=== PATIENT | female | born 1955 | race Caucasian/White ===

== ENCOUNTER 2018-07-03 11:34 | Outpatient (REF) | payer OTHER, MEDICARE, SELFPAY ==
[2018-07-03 20:18] LABS: Abs Immature Grans 0.01 k/cumm (0.0-0.09); Absolute Basophil Count 0.06 k/cumm (0.0-0.2); Absolute Eosinophil Count 0.36 k/cumm (0.0-0.7); Absolute Lymphocyte Count 2.46 k/cumm (1.2-3.4); Absolute Monocyte Count 0.43 k/cumm (0.11-0.7); Absolute Neutrophil Count 2.55 k/cumm (1.2-6.7); Eosinophils % 6.1; HCT 39.4 % (36.0-46.0); HGB 12.9 g/dL (12.0-15.5); Immature Grans % 0.2; Lymphocytes % 41.9; Mean Corp. HGB Concentration 32.7 g/dL (32.0-36.0); Mean Corpuscular Hemoglobin 30.1 pg (27.0-33.0); Mean Corpuscular Volume 91.8 fL (80-95); Mean Platelet Volume 10.7 fL (8.0-11.0); Monocytes % 7.3; Neutrophils % 43.5; Platelet Count 283 x1000/uL (130-400); RBC 4.29 m/cumm (4.00-5.20); RBC Distribution Width 13.4 % (11.7-14.6); White Blood Cell Count 5.87 k/cumm (4.4-10.8)
[2018-07-03 20:19] LABS: BUN 12 mg/dL (7-18); CREATININE 0.81 mg/dL (0.55-1.02); Calcium 8.9 mg/dL (8.5-10.1); Chloride 103 mmol/L (98-107); Glucose 77 mg/dL (70-100); Potassium 3.5 mmol/L (3.5-5.1); Sodium 143 mmol/L (136-145)
== END 2018-07-03 11:54 ==
LOC: NCHCN 11:34
PROVIDERS: PCP Nurse Practitioner Family; Visit Provider Nurse Practitioner Family
DX: C82.90 Follicular lymphoma, unspecified, unspecified site (principal)
CPT/HCPCS: 80048; 85025

== ENCOUNTER 2018-10-26 14:43 | Outpatient (REF) | payer MEDICARE, SELFPAY ==
[2018-10-26 16:01] LABS: Abs Immature Grans 0.01 k/cumm (0.0-0.09); Absolute Basophil Count 0.03 k/cumm (0.0-0.2); Absolute Eosinophil Count 0.23 k/cumm (0.0-0.7); Absolute Lymphocyte Count 2.34 k/cumm (1.2-3.4); Absolute Monocyte Count 0.39 k/cumm (0.11-0.7); Absolute Neutrophil Count 2.14 k/cumm (1.2-6.7); Basophils % 0.6; Eosinophils % 4.5; HCT 39.5 % (36.0-46.0); HGB 13.2 g/dL (12.0-15.5); Immature Grans % 0.2; Lymphocytes % 45.5; Mean Corp. HGB Concentration 33.4 g/dL (32.0-36.0); Mean Corpuscular Hemoglobin 30.3 pg (27.0-33.0); Mean Corpuscular Volume 90.6 fL (80-95); Monocytes % 7.6; Neutrophils % 41.6; Platelet Count 268 x1000/uL (130-400); RBC 4.36 m/cumm (4.00-5.20); RBC Distribution Width 13.8 % (11.7-14.6); White Blood Cell Count 5.14 k/cumm (4.4-10.8)
[2018-10-26 16:16] LABS: ALT 30 U/L (12-78); AST 19 U/L (15-37); Albumin 3.9 g/dL (3.4-5.0); Alkaline Phosphatase 74 U/L (46-116); BUN 14 mg/dL (7-18); Bilirubin, Total 0.4 mg/dL (0.2-1.0); CREATININE 0.77 mg/dL (0.55-1.02); Calcium 9.2 mg/dL (8.5-10.1); Chloride 103 mmol/L (98-107); Cholesterol 273 mg/dL (50-200); Glucose 91 mg/dL (70-100); HDL Cholesterol 72 mg/dL (40-60); LDL CHOLESTEROL 175 mg/dL (<100); Potassium 3.8 mmol/L (3.5-5.1); Sodium 141 mmol/L (136-145); Total Protein 6.6 g/dL (6.4-8.2); Triglyceride 99 mg/dL (30-150)
[2018-10-26 16:38] LABS: LDH 168 U/L (81-234)
== END 2018-10-26 15:03 ==
LOC: NCHCN 14:43
PROVIDERS: PCP Nurse Practitioner Family; Visit Provider Nurse Practitioner Family
DX: R59.0 Localized enlarged lymph nodes (principal); C82.90 Follicular lymphoma, unspecified, unspecified site; Z86.19 Personal history of other infectious and parasitic diseases
CPT/HCPCS: 80053; 80061; 83721; 83615; 85025

== ENCOUNTER 2019-02-16 09:49 | Outpatient (CLI) | payer MEDICARE, SELFPAY ==
[2019-02-16 11:01] LABS: Absolute Basophil Count 0.02 k/cumm (0.0-0.2); Absolute Eosinophil Count 0.16 k/cumm (0.0-0.7); Absolute Lymphocyte Count 1.41 k/cumm (1.2-3.4); Absolute Monocyte Count 0.33 k/cumm (0.11-0.7); Absolute Neutrophil Count 2.86 k/cumm (1.2-6.7); Basophils % 0.4; Eosinophils % 3.3; HGB 13.9 g/dL (12.0-15.5); Lymphocytes % 29.5; Mean Corp. HGB Concentration 33.1 g/dL (32.0-36.0); Mean Corpuscular Volume 90.5 fL (80-95); Mean Platelet Volume 9.6 fL (8.0-11.0); Monocytes % 6.9; Neutrophils % 59.9; Platelet Count 294 x1000/uL (130-400); RBC 4.64 m/cumm (4.00-5.20); RBC Distribution Width 13.7 % (11.7-14.6); White Blood Cell Count 4.78 k/cumm (4.4-10.8)
[2019-02-16 11:17] LABS: ALT 27 U/L (12-78); AST 21 U/L (15-37); Albumin 3.8 g/dL (3.4-5.0); Alkaline Phosphatase 75 U/L (46-116); Anion Gap 7.8 mmol/L (3-11); BUN 9 mg/dL (7-18); Bilirubin, Total 0.4 mg/dL (0.2-1.0); CO2 29.2 mmol/L (21.0-32.0); CREATININE 0.65 mg/dL (0.55-1.02); Calcium 8.8 mg/dL (8.5-10.1); Chloride 104 mmol/L (98-107); Glucose 94 mg/dL (70-100); LDH 193 U/L (81-234); Potassium 4.1 mmol/L (3.5-5.1); Sodium 141 mmol/L (136-145); Total Protein 7.2 g/dL (6.4-8.2)
== END 2019-02-16 10:09 ==
PROVIDERS: PCP Nurse Practitioner Family; Visit Provider Internal Medicine Hematology & Oncology
DX: C82.00 Follicular lymphoma grade I, unspecified site (principal)
CPT/HCPCS: 36415; 80053; 83615; 85025

== ENCOUNTER 2019-08-27 10:42 | Outpatient (CLI) | payer MEDICARE, SELFPAY ==
[2019-08-27 11:02] LABS: Abs Immature Grans 0.01 k/cumm (0.0-0.09); Absolute Basophil Count 0.06 k/cumm (0.0-0.2); Absolute Lymphocyte Count 2.51 k/cumm (1.2-3.4); Absolute Monocyte Count 0.36 k/cumm (0.11-0.7); Absolute Neutrophil Count 1.92 k/cumm (1.2-6.7); Basophils % 1.2; HCT 37.8 % (36.0-46.0); HGB 12.3 g/dL (12.0-15.5); Immature Grans % 0.2 %; Lymphocytes % 49.6; Mean Corp. HGB Concentration 32.5 g/dL (32.0-36.0); Mean Corpuscular Hemoglobin 29.4 pg (27.0-33.0); Mean Corpuscular Volume 90.4 fL (80-95); Mean Platelet Volume 9.3 fL (8.0-11.0); Monocytes % 7.1; Neutrophils % 37.9; Platelet Count 234 x1000/uL (130-400); RBC 4.18 m/cumm (4.00-5.20); RBC Distribution Width 14.4 % (11.7-14.6); White Blood Cell Count 5.06 k/cumm (4.4-10.8)
[2019-08-27 11:19] LABS: ALT 25 U/L (14-59); AST 21 U/L (15-37); Albumin 3.5 g/dL (3.4-5.0); Alkaline Phosphatase 72 U/L (46-116); Anion Gap 5.4 mmol/L (3-11); BUN 13 mg/dL (7-18); Bilirubin, Total 0.3 mg/dL (0.2-1.0); CO2 31.6 mmol/L (21.0-32.0); CREATININE 0.85 mg/dL (0.55-1.02); Calcium 8.3 mg/dL (8.5-10.1); Chloride 105 mmol/L (98-107); Glucose 99 mg/dL (74-106); LDH 190 U/L (81-234); Potassium 3.8 mmol/L (3.5-5.1); Sodium 142 mmol/L (136-145); Total Protein 6.3 g/dL (6.4-8.2)
== END 2019-08-27 11:02 ==
PROVIDERS: PCP Nurse Practitioner Family; Visit Provider Internal Medicine Hematology & Oncology
DX: C82.00 Follicular lymphoma grade I, unspecified site (principal)
CPT/HCPCS: 36415; 80053; 83615; 85025

== ENCOUNTER 2019-11-23 01:15 | Outpatient (CLI) | payer MEDICARE, SELFPAY ==
--- NOTE | 2019-11-23 | DI.CT_ITS ---
EXAM: CT CHEST/ABD/PEL W CLINICAL HISTORY: F/U LYMPHOMA, SURVEILLANCE, PLEASE MEASURE INDICATE SITES IF THERE ARE TECHNIQUE: COMPARISON: CHEST ABD PELVIS WITH CONTRAST from 10/04/2016 FINDINGS: CT examination of the chest, abdomen, and pelvis was performed with bolus infusion of 100 cc of Omnip aque 350. Oral contrast was also administered. Previous scan of October 05, 2015 showed slightly enlarged right axillary lymph nodes, these are smalle r on today's examination. No suspicious node identified in the axillary or supraclavicular regions. No mediastinal or hilar adenopathy. Tracheobronchial tree appears intact. The lungs are predominan tly clear, pleural based nodules are noted in the of upper thorax unchanged from prior study consiste nt with scarring. There is significant central lobular and subpleural emphysematous change. No pleu ral effusion seen. Thoracic aorta and pulmonary arterial circulation are unremarkable. Scanning of the abdomen shows multiple low-attenuation peripheral enhancing hepatic lesions grossly u nchanged from prior study of 2015. Spleen is unremarkable in appearance. Splenule is noted. There is no evidence of retroperitoneal, mesenteric, pelvic, or inguinal adenopathy. No focal bowel pathol ogy. Appendix is normal. No evidence of bowel obstruction or diverticulitis. The pancreas, gallbladder, and bile ducts are unremarkable. The adrenals and kidneys appear normal. No urinary tract calcification or obstruction. Abdominal aorta is of normal diameter with atheromatous calcification present at multiple sites. No significant abdominal wall hernia seen. No bony lesion identified on scanning of chest, abdomen, or pelvis. IMPRESSION: No evidence of recurrent lymphoma on scanning of the chest, abdomen, or pelvis.
[2019-11-23 08:53] LABS: Abs Immature Grans 0.01 k/cumm (0.0-0.09); Absolute Basophil Count 0.04 k/cumm (0.0-0.2); Absolute Eosinophil Count 0.19 k/cumm (0.0-0.7); Absolute Lymphocyte Count 1.21 k/cumm (1.2-3.4); Basophils % 0.8; Eosinophils % 3.8; HCT 39.5 % (36.0-46.0); HGB 13.3 g/dL (12.0-15.5); Immature Grans % 0.2 %; Mean Corp. HGB Concentration 33.7 g/dL (32.0-36.0); Mean Corpuscular Hemoglobin 30.4 pg (27.0-33.0); Mean Corpuscular Volume 90.4 fL (80-95); Mean Platelet Volume 10.3 fL (8.0-11.0); Monocytes % 5.9; Neutrophils % 65.3; Platelet Count 255 x1000/uL (130-400); RBC 4.37 m/cumm (4.00-5.20); RBC Distribution Width 13.1 % (11.7-14.6); White Blood Cell Count 5.05 k/cumm (4.4-10.8)
[2019-11-23 09:08] LABS: ALT 26 U/L (14-59); AST 24 U/L (15-37); Albumin 3.9 g/dL (3.4-5.0); Alkaline Phosphatase 62 U/L (46-116); Anion Gap 7.8 mmol/L (3-11); BUN 10 mg/dL (7-18); Bilirubin, Total 0.6 mg/dL (0.2-1.0); CO2 27.2 mmol/L (21.0-32.0); CREATININE 0.81 mg/dL (0.55-1.02); Calcium 8.7 mg/dL (8.5-10.1); Chloride 105 mmol/L (98-107); Glucose 101 mg/dL (74-106); LDH 195 U/L (81-234); Potassium 3.7 mmol/L (3.5-5.1); Sodium 140 mmol/L (136-145); Total Protein 6.9 g/dL (6.4-8.2)
[2019-11-23] MEDS: Omnipaque 350 MG/ML 100 ML BTL IJ (09:38)
[2019-11-23] MEDS: Normal Saline - Diluent 50 ML VIAL IV (09:39)
[2019-11-27 20:26] LABS: HBV DNA Detect/Quant, PCR Undetected IU/mL (Undetected)
== END 2019-11-23 01:35 ==
PROVIDERS: PCP Nurse Practitioner Family; Visit Provider Internal Medicine Hematology & Oncology
DX: C82.00 Follicular lymphoma grade I, unspecified site (principal); R59.0 Localized enlarged lymph nodes; J43.8 Other emphysema; J98.4 Other disorders of lung
CPT/HCPCS: 74177; 80053; 87517; 71260; 83615; 85025; J3490

== ENCOUNTER 2020-02-25 01:17 | Outpatient (CLI) | payer MEDICARE, SELFPAY ==
--- NOTE | 2020-02-25 | DI.MAMMO_ITS ---
EXAM: MAMMO SCREENING CLINICAL HISTORY: SCREENING, Z12.39 TECHNIQUE: Mammograms were interpreted according to the usual protocol including computer analysis w [employer] CAD system, tomosynthesis and C-view imaging. COMPARISON: FINDINGS: Breasts are of moderate density with fairly symmetrical distribution of fibroglandular tissue. No do minant mass or clumped microcalcification is identified in either breast. The current examination co mpared with previous examinations including February 2017 and there has been no gross interval change i n appearance comparison with prior studies. IMPRESSION: No specific evidence of malignancy at this time. Routine screening examinations are suggested at yea rly intervals in this age group according to the ACS ACR guidelines. Category: BI-RADS Cat 1 - Negative Breast Density - Category B - Scattered areas of fibroglandular density
== END 2020-02-25 01:37 ==
PROVIDERS: PCP Nurse Practitioner Family; Visit Provider Nurse Practitioner Family
DX: Z12.31 Encounter for screening mammogram for malignant neoplasm of breast (principal); R92.2 Inconclusive mammogram
CPT/HCPCS: 77063; 77067

== ENCOUNTER 2020-02-25 01:47 | Outpatient (CLI) | payer MEDICARE, SELFPAY ==
[2020-02-25 11:20] LABS: Abs Immature Grans 0.04 10^3/uL (0.0-0.06); Absolute Eosinophil Count 0.63 10^3/uL (0.0-0.7); Basophils % 0.8; Eosinophils % 5.2; HCT 39.1 % (36.0-46.0); HGB 12.8 g/dL (11.2-15.7); Immature Grans % 0.3; Lymphocytes % 67.8; MCH 28.8 pg (27.0-33.0); MCHC 32.7 % (32.0-36.0); MCV 87.9 fL (80-95); MPV 9.1 fL (8.0-11.0); Monocytes % 3.1; Neutrophils % 22.8; Platelet Count 192 10^3/uL (130-400); RBC 4.45 10^6/uL (3.93-5.22); RDW 14.3 % (11.7-14.6); RDW-SD 45.9 fL; WBC 12.09 10^3/uL (4.4-10.8)
[2020-02-25 11:25] LABS: ALT 38 U/L (14-59); AST 37 U/L (15-37); Albumin 3.5 g/dL (3.4-5.0); Alkaline Phosphatase 110 U/L (46-116); Anion Gap 8.7 mmol/L (3-11); BUN 18 mg/dL (7-18); Bilirubin, Total 0.5 mg/dL (0.2-1.0); CO2 28.3 mmol/L (21.0-32.0); CREATININE 0.83 mg/dL (0.55-1.02); Chloride 102 mmol/L (98-107); Glucose 93 mg/dL (74-106); LDH 214 U/L (81-234); Potassium 3.8 mmol/L (3.5-5.1); Sodium 139 mmol/L (136-145)
[2020-02-25 11:28] LABS: Absolute Monocyte Count 0.37 10^3/uL (0.1-0.8); Absolute Neutrophil Count 2.76 10^3/uL (1.2-6.7)
[2020-02-25 11:40] LABS: Diff Comment Agrees w/ Instrument; RBC Morphology Normal
== END 2020-02-25 02:07 ==
PROVIDERS: PCP Nurse Practitioner Family; Visit Provider Internal Medicine Hematology & Oncology
DX: C82.00 Follicular lymphoma grade I, unspecified site (principal)
CPT/HCPCS: 36415; 80053; 83615; 85025

== ENCOUNTER 2020-05-01 13:53 | Emergency (ER) | payer MEDICARE, SELFPAY ==
[2020-05-01 14:01] VITALS: BP 123/78; PULSE 92; RESP 18; TEMP 37.3; O2SAT 97
--- NOTE | 2020-05-01 14:20 | ED.GENADUL_ITS ---
Discharge Plan Disposition Patient Disposition: HOME Condition: Improving Discharge Details Clinical Impression: Ileus, Urinary tract infection Primary Care Provider: Malachi Germain ED Provider: Ben Kapoor Home Meds and New Rx's Prescriptions: New cephalexin 500 mg capsule 500 mg PO TID 7 Days Qty: 21 RF: 0 sennosides [Senokot] 8.6 mg tablet 8.6 mg PO BID PRN (Reason: constipation) Qty: 14 RF: 0 Continued simvastatin 40 MG tablet 40 mg PO DAILY RF: 0 albuterol sulfate [ProAir HFA] 1 PUFF HFA aerosol inhaler 8.5 gm Inhalation TID PRN PRNRF: 0 prochlorperazine maleate 10 mg Tablet 10 mg PO TID PRNRF: 0 oxycodone-acetaminophen 10-325 mg Tablet 1 tab PO TID PRNRF: 0 potassium gluconate 2 mEq Tablet 2 meq PO DAILY RF: 0 Spiriva with HandiHaler 18 mcg Capsule, W/Inhalation Device 1 cap INHALATION DAILY RF: 0 duloxetine [Cymbalta] 60 mg Capsule,Delayed Release(Dr/Ec) 60 mg PO DAILY RF: 0 Narcan 4 mg/actuation [place],Non-Aerosol 4 mg INTRANASAL Q2-3M PRNRF: 0 Discharge Instructions Instructions: Urinary Tract Infection in Women (ED) Additional Instructions: Take antibiotics as prescribed. Continue small, frequent sips of fluids that you maintain good hydration. Continue your regularly prescribed medications. Begin senna as prescribed, as needed while you have bloating and mild abdominal discomfort. Your x-ray showed nonspecific mildly dilated small bowel loops. If you develop abdominal distention, vomiting, or develop a fever or increasing pain, please return or see your nearest healthcare facility. Return to the ER for any acute concerns. Medical Decision Making 64-year-old female presents from home. For 3 weeks she has had intermittent episodes of difficulty starting her stream of urine and feeling incomplete voiding. Now also with days of lower abdominal discomfort, bloating, feeling she is constipated. Somewhat improved with [id number] herbal laxative. No fever and no vomiting. Of note she did have a screening CT scan of the chest, abdomen, pelvis on November 22 of this year which did not show any evidence of cancerous masses. She has follow-up with Dr. Manning pending. Today her rectal exam was unremarkable and there is no evidence of stool impaction. She is referred for urinalysis and x-ray. X-ray reveals question of ileus nonspecific mildly dilated small bowel loops, no free air or clear obstruction. Urinalysis with mixed cells, numerous bacteria. Discussed with patient further work-up this time including laboratory b analysis and chest x-ray. States she feels good and would wish to be discharged. I do believe her incomplete voiding and presentation is consistent with developing UTI which I will treat. We discussed adding stool softener given the question of ileus. She understands to return if she has increasing abdominal pain, bloating, develops a fever or vomiting. HPI General Mode of arrival: ambulatory . Date/Time Provider Initiated Documentation: 05/01/20 13:55 . Limitations to Documentation: no limitations . Information obtained by: patient . History of Present Illness 64 year old F presents to the emergency department with the chief complaint of Lower abdominal bloating, difficulty starting stream of urine, feels consti, described as moderate, Quality is described as dull, and is localized to the abdomen. Patient reports no radiation. Patient started experiencing this day(s) and it has been intermittent. No relieving factors improve symptom(s), No exacerbating factors reported . Patient notes denies fever/chills. Patient did receive the following treatments prior to arrival, none Related Data Home Medications Medication Instructions Recorded Confirmed simvastatin 40 mg PO DAILY 11/23/12 05/01/20 albuterol sulfate [ProAir HFA] 8.5 gm INHALATION TID PRN PRN 11/24/12 05/01/20 Narcan 4 mg INTRANASAL Q2-3M PRN 05/01/20 05/01/20 Spiriva with HandiHaler 1 cap INHALATION DAILY 05/01/20 05/01/20 cephalexin 500 mg PO TID 7 Days #21 cap 05/01/20 duloxetine [Cymbalta] 60 mg PO DAILY 05/01/20 05/01/20 oxycodone-acetaminophen 1 tab PO TID PRN 05/01/20 05/01/20 potassium gluconate 2 meq PO DAILY 05/01/20 05/01/20 prochlorperazine maleate 10 mg PO TID PRN 05/01/20 05/01/20 sennosides [Senokot] 8.6 mg PO BID PRN #14 tab 10/08/20 Previous Rx's Medication Instructions Recorded cephalexin 500 mg PO TID 7 Days #21 cap 05/01/20 sennosides [Senokot] 8.6 mg PO BID PRN #14 tab 05/01/20 Allergies Allergy/AdvReac Type Severity Reaction Status Date / Time lamotrigine Allergy Unknown Unverified 05/01/20 14:09 milnacipran [From Savella] Allergy Unknown Unverified 05/01/20 14:22 [email or web address] Allergy Unknown Unverified 05/01/20 14:09 General Stated Complaint: Abd Prob CHANDNI: 3 Review of Systems Narrative: 6 systems reviewed and otherwise negative [facility] Medical History Asthma Bone metastasis Depression Fibromyalgia Hemangioma of liver Hyperlipidemia Hypothyroidism Major depression Stage Karley non Hodgkin's lymphoma Vitamin D deficiency Surgical History (Updated 08/08/15 @ 11:24 by Rajwinder Valdez MD) Biopsy, Lymph Node excision ganglion cyst Social History Smoking/Tobacco Use Status: Former Tobacco Use Alcohol Intake: current Alcohol Intake frequency: holidays/special occasions only Drug use: Never Do you feel safe at home: Yes Do you feel safe in your relationship?: Yes Exam Narrative Exam Narrative: GEN: awake, alert, oriented 3. Pleasant, well groomed, interactive. HEAD: Normocephalic, atraumatic ENT: Mucous membranes moist, oropharynx unremarkable, External ear exam unremarkable EYES: PERRL, EOMI CHEST/RESP: Nontender, clear to auscultation bilateral, no wheeze/rhonchi/rales CARDIOVASCULAR: RRR, no murmur, rub marcie. 2+ Rad pulse bilateral ABDOMEN: Soft, nontender, slightly distended, no mass. +Bowel sounds. Rectal exam with normal tone, no mass or stool ball appreciated. Brown stool. EXT: Full ROM, no edema, no rash Neuro: Grossly normal neurologic exam, conversant, interactive. Psych: Speech fluent, thoughts congruent, affect normal Course Vital Signs Vital signs: Vital Signs Temperature 37.3 C 05/01/20 14:01 Pulse 92 H 05/01/20 14:01 Respiratory Rate 18 05/01/20 14:01 Blood Pressure 123/78 05/01/20 14:01 Pulse Oximetry 97 05/01/20 14:01 Temperature 37.3 C 05/01/20 14:01 Temperature Source Temporal Artery Scan 05/01/20 14:01 Pulse 92 H 05/01/20 14:01 Respiratory Rate 18 05/01/20 14:01 Respiratory Effort Non-Labored 05/01/20 14:08 Blood Pressure 123/78 05/01/20 14:01 Blood Pressure Position Sitting 05/01/20 14:01 Pulse Oximetry 97 05/01/20 14:01 Oxygen Delivery Method Room Air 05/01/20 14:01 Oxygen Flow Rate 0 05/01/20 14:01 Pain Level 4 05/01/20 14:01
[2020-05-01 14:49] LABS: Bilirubin Small (Negative); Blood Negative (Negative); Clarity Clear (Clear); Glucose Negative (Negative); Ketones Negative (Negative); Leukocyte Esterase Negative (Negative); Nitrite Negative (Negative); Specific Gravity >= 1.030 (1.005-1.025); Urobilinogen 0.2 EU/dL (Up TO 0.2); pH 5.5 (5-8)
--- NOTE | 2020-05-01 14:52 | DI.RAD_ITS ---
EXAM: XR ABDOMEN FLAT UPRIGHT CLINICAL HISTORY: Constipation TECHNIQUE: COMPARISON: CT CT CHEST/ABD/PEL W from 11/23/2019 FINDINGS: Three views were obtained. There are couple of mildly dilated small bowel loops in the mid abdomen t o left upper quadrant. No gross evidence of obstruction. No free intraperitoneal air. No gross org anomegaly. IMPRESSION: Nonspecific mildly dilated small bowel loops, please correlate clinically. Additional evaluation wit h CT may be considered given the patient's history of prior lymphoma. RADIATION DOSE DELIVERED: Total DLP
[2020-05-01 15:10] LABS: Bacteria Many HPF (Negative); C & S Indicated? No/Sq. Contamination; Casts Negative LPF (Negative); Crystals Few Amorphous HPF (Negative); Epithelial Cells Many HPF (Negative); Mucus Moderate (Negative); RBC 0-2 HPF (0-2); WBC 0-2 HPF (0-5)
== END 2020-05-01 15:37 | disposition home or self-care (01) ==
PROVIDERS: Emergency Provider Emergency Medicine; PCP Nurse Practitioner Family
DX: N39.0 Urinary tract infection, site not specified (principal); R14.0 Abdominal distension (gaseous); K56.7 Ileus, unspecified; Z79.891 Long term (current) use of opiate analgesic
CPT/HCPCS: 99283; 74019; 81003; 81015

== ENCOUNTER 2020-05-17 11:13 | Emergency (ER) | payer MEDICARE, SELFPAY ==
[2020-05-17] VITALS (48 sets, daily range): BP systolic 102–145; BP diastolic 56–91; PULSE 75–103; RESP 12–27; TEMP 36.8; O2SAT 92–97
[2020-05-17] MEDS: Normal Saline 250 ML IV (11:50)
--- NOTE | 2020-05-17 12:22 | W.ED.GENAD ---
Discharge Plan Disposition Patient Disposition: HOME Condition: Stable Discharge Details Clinical Impression: Retroperitoneal lymphadenopathy, Pelvic lymphadenopathy, Urinary incontinence, Bilateral lower extremity edema, DVT prophylaxis Primary Care Provider: Malachi Germain ED Provider: Sindy Guillen Home Meds and New Rx's Prescriptions: New Eliquis 5 mg tablet 10 mg PO BID Qty: 60 RF: 0 Myrbetriq 25 mg tablet extended release 24 hr 25 mg PO DAILY Qty: 30 RF: 0 Continued simvastatin 40 MG tablet 40 mg PO DAILY RF: 0 albuterol sulfate [ProAir HFA] 1 PUFF HFA aerosol inhaler 8.5 gm Inhalation TID PRN PRNRF: 0 prochlorperazine maleate 10 mg Tablet 10 mg PO TID PRNRF: 0 oxycodone-acetaminophen 10-325 mg Tablet 1 tab PO TID PRNRF: 0 Spiriva with HandiHaler 18 mcg Capsule, W/Inhalation Device 1 cap INHALATION DAILY RF: 0 duloxetine [Cymbalta] 60 mg Capsule,Delayed Release(Dr/Ec) 60 mg PO DAILY RF: 0 Narcan 4 mg/actuation [place],Non-Aerosol 4 mg INTRANASAL Q2-3M PRNRF: 0 Discharge Instructions Instructions: Urinary Incontinence (ED), Lymphadenopathy (ED), Ascites (ED) Additional Instructions: Take the 2 tabs of 5 mg Eliquis tonight and every 12 hours tomorrow. Take the Myrbetriq once daily as directed. Return to the hospital on Tuesday for bilateral lower leg ultrasound to rule out a blood clot in your legs. You can stop taking the Eliquis if your ultrasound is negative. Fill the prescription for Eliquis if you are found to have blood clots on your ultrasound. Discuss with your primary care doctor or Dr. Manning regarding how long to continue on the Eliquis if you are found to have blood clots. You do not need to obtain the outpatient CAT scan ordered through Dr. Manning next week as you had a CAT scan of your chest/abdomen/pelvis today. Call the hematology/oncology clinic at [facility] on Tuesday to confirm that your PET scan has been ordered so that you can obtain this test prior to follow-up with Dr. Manning in the next few weeks. Follow-up with urology Dr. Alba as an outpatient for reassessment of your difficulty with urination. Return immediately to the emergency department if you develop any worsening or new concerning symptoms. Referrals: West Alba MD [ [facility] STAFF PHYSICIAN] - Discharge Data Discharge Date/Time-TO BE ENTERED AT DEPARTURE: 05/17/20 18:06 Discharge Physician: Sindy Guillen Medical Decision Making 64yo F with a history of stage IV non Hodgkin's lymphoma diagnosed in 2012 presents for urinary retention and b/l lower extremity edema for 2 months. Patient appears chronically ill but in no acute distress and nontoxic. Vitals within normal limits. Bladder scan per nurse greater than 500. Bedside Ferro catheter placed by nurse and minimal urine expressed. Likely that bladder scan picked up possible ascites rather than retained urine. Labs and imaging reviewed. Normal white blood cell count. Hemoglobin 9.7, which he points lower than recent baseline. Normal coagulation studies, electrolytes and renal function. Urinalysis notes blood but no infection. CT notes extensive retroperitoneal, pelvic lymphadenopathy presumably neoplastic. Retroperitoneal adenopathy seems to be causing apparent venous compression of the IVC. There is also concern for possible DVT within the common femoral veins and Doppler ultrasounds recommended. 1600 --discussed with [facility] hematology/oncology -- Concern for recurrence of her lymphoma. This usually would require PET scan and restaging or biopsy. Recommended checking uric acid, LDH and phosphorus to rule out acute tumor lysis syndrome all of which were unremarkable. Agrees with consideration for prophylactic DVT treatment. Patient would like to go home. Patient appears comfortable and hemodynamically stable. Her ascites does not seem to be causing any acute distress. Case discussed with Dr. Alba neurology who feels that patient's urinary retention is likely due to an ongoing urinary incontinence as her bladder does not fill with the pressure from the ascites and lymphadenopathy. With further discussion with patient, she does admit to intermittent incontinence throughout the day. Dr. Alba recommends to start a bladder relaxer Myrbetriq at 25 mg once daily for the next several weeks and to follow-up with him as outpatient. Patient was given Eliquis and Myrbetriq here. An order for an outpatient b/l doppler leg ultrasound placed for her to return Tuesday. Advised to call Dr. Manning's office on Tuesday for PET scan and follow-up. Usual and customary return precautions given prior to discharge. Medical Records Medical records reviewed: Yes I reviewed the patient's medical records. Imaging Data Radiologic Study: Radiologist's impression: The patient has a history of non-Hodgkin's lymphoma. The extensive adenopathy, splenomegaly is highly suspicious for disease recurrence. There is prominent bilateral axillary lymphadenopathy and these nodes likely are the most accessible to percutaneous biopsy. The largest right axillary lymph node measures approximately 29 x 15 mm as measured on coronal reformatted image 29, series 9. PROCEDURE INFORMATION: Exam: CT Angiography Chest With Contrast Exam date and time: 05/17/2020 11:52 AM Age: 64 years old Clinical indication: Other: Unable to urinate, leg edema, R/O acute mass TECHNIQUE: Imaging protocol: Computed tomographic angiography of the chest with intravenous contrast. 3D rendering (Not supervised by radiologist): MIP and/or 3D reconstructed images were created by the technologist. Radiation optimization: All CT scans at this facility use at least one of these dose optimization techniques: automated exposure control; mA and/or kV adjustment per patient size (includes targeted exams where dose is matched to clinical indication); or iterative reconstruction. Contrast material: OMNIPAQUE 350; Contrast route: INTRAVENOUS (IV); COMPARISON: CT CHEST/ABD/PEL W 11/23/2019 9:25 AM FINDINGS: Pulmonary arteries: The no definite intraluminal filling defect or intravascular thrombus is identified to suggest acute pulmonary embolus. Aorta: The aorta is nonaneurysmal. No acute aortic abnormality is identified. Lungs: Emphysematous changes are seen in both lungs. Bullae are seen at the lung apices. Linear opacities at the lung apices likely represent pleuroparenchymal scarring. There is no evidence of an endobronchial lesion. There is mild atelectasis in association with the right pleural effusion. No significant lobar consolidation is identified. There is a nonspecific nodule noted within the right lower lobe measuring approximately 6 mm in diameter on series 7, image 326. There is a possible additional tiny nodule posteriorly in the left lower lobe on image 356. Pleural space: Small to moderate right pleural effusion is noted. Trace left pleural effusion is noted. Heart: The heart is not enlarged. There is no significant pericardial effusion Lymph nodes: There is prominent bilateral axillary lymphadenopathy. No significantly enlarged mediastinal or hilar nodes are identified. Bones/joints: Degenerative changes are seen in the thoracic spine. No definite acute or destructive bony abnormality is identified. Soft tissues: There is some mild apparent stranding in the axillary soft tissues adjacent to the axillary adenopathy. There is some mild diffuse subcutaneous edema.. IMPRESSION: 1. No evidence of acute pulmonary embolus. 2. Right greater than left pleural effusion 3. Emphysema 4. Bilateral axillary lymphadenopathy, suspicious for neoplastic adenopathy in light of the findings described below 5. Small nonspecific lower lobe nodules as described. 6. For patients at low risk (minimal or absent history of smoking and of other known risk factors), recommend CT Chest at 6-12 months, then consider CT Chest at 18-24 months. For patients at high risk (history of smoking or of other known risk factors), recommend CT Chest at 6-12 months, then CT Chest at 18-24 months. (Reference: Arcelia) REFERENCES: Arcelia Arias, et al. Guidelines for Management of Incidental Pulmonary Nodules Detected on CT Images: From the Fleischner Society 2017. Radiology. 2017;284(1):228-243. CT Abdomen And Pelvis With Contrast Exam date and time: 05/17/2020 11:52 AM Age: 64 years old Clinical indication: Other: Unable to urinate, leg edema, R/O acute mass TECHNIQUE: Imaging protocol: Computed tomography of the abdomen and pelvis with intravenous contrast. Radiation optimization: All CT scans at this facility use at least one of these dose optimization techniques: automated exposure control; mA and/or kV adjustment per patient size (includes targeted exams where dose is matched to clinical indication); or iterative reconstruction. Contrast material: OMNIPAQUE 350; Contrast volume: 100 ml; Contrast route: INTRAVENOUS (IV); COMPARISON: CT CHEST/ABD/PEL W 11/23/2019 9:25 AM FINDINGS: Liver: There is a low-density lesion noted at the dome of the liver with some peripheral enhancement. This is nonspecific and incompletely characterized on this examination but could represent an hepatic any angioma. There is a similar appearing smaller lesion lateral segment left lobe of the liver measuring approximately 13 mm on series 14, image 185. There is a 9 mm low-density lesion posteriorly, medially right lobe of the liver near the dome series 14, image 108. Additional tiny lesion series 14, image 161. The liver is enlarged. Superior to inferior extent of the right lobe of the liver is over 17 cm. Gallbladder and bile ducts: Gallbladder is distended. No gallstones. Extrahepatic common bile duct is prominent in size measuring 8 mm in diameter but there is no evidence of intrahepatic ductal dilatation. There is no CT evidence of choledocholithiasis. Pancreas: There is no evidence of a discrete pancreatic mass nor significant pancreatic ductal dilatation. Spleen: The spleen is enlarged. As measured on coronal re-formatted images it measures approximately 14.3 x 6.3 cm on image 49. No focal intra splenic abnormality is identified. Adrenals: The adrenals are unremarkable There is a in apparent left adrenal mass which measures approximately 3.3 by 2.1 cm in diameter on series 14, image 183. There is no evidence of a discrete right adrenal mass or nodule Kidneys and ureters: There are no radiopaque urinary tract calculi. There is no evidence of hydronephrosis. There is no evidence of a renal cortical mass. Stomach and bowel: There is no evidence of a bowel obstruction, mass or pneumatosis . There is some displacement of bowel loops the by the ascites fluid.. Appendix: No evidence of appendicitis. Intraperitoneal space: Ascites is noted in the abdomen and pelvis but there is no evidence of a discrete or drainable collection or abscess. No free air Vasculature: The aorta is nonaneurysmal. Atherosclerotic plaque is noted within the abdomen, pelvis. There is no acute aortic abnormality . The exam was not tailored to evaluate the venous structures of the lower extremities. However there are findings suspicious for possible deep venous thrombosis within the common femoral veins. For further evaluation for possible DVT correlation with vascular ultrasound recommended. Lymph nodes: There is conglomerate retroperitoneal adenopathy. Adenopathy is both periaortic and aortocaval in location. Pelvic/iliac adenopathy is identified. External iliac nodes measure up to 26 x 16 mm on series 14, image 603. Multiple bilateral inguinal nodes are also noted The retroperitoneal adenopathy likely contributes to venous compression of the IVC. Urinary bladder: Ferro catheter is seen in the urinary bladder. The bladder is decompressed. Reproductive: No significant uterine or adnexal abnormalities identified Bones/joints: There is compression deformity of the superior endplate of L4 age indeterminate. There is no other significant decrease of vertebral body height. No other definite acute or destructive bony abnormality is identified. The Soft tissues: There is diffuse subcutaneous edema left lower extremity appears larger than the right. Again to evaluate for DVT vascular ultrasound recommended IMPRESSION: 1. Abnormal exam. Extensive retroperitoneal, pelvic lymphadenopathy presumably neoplastic. Retroperitoneal adenopathy leads to apparent venous compression of the IVC . To the the better evaluate for deep venous thrombosis of the lower extremities venous ultrasound examination recommended 2. left adrenal mass/nodule the 3. Hepatosplenomegaly 4. Ascites 5 Multiple peripherally enhancing hepatic lesions incompletely characterized on this examination possibly hepatic hemangiomata. Lab Data Lab results reviewed: Yes I reviewed the patient's lab results. Labs: Abnormal Lab Results 05/17/20 05/17/20 05/17/20 12:25 12:25 12:25 WBC 6.38 RBC 3.31 L Hgb 9.7 L Hct 31.5 L MCV 95.2 H MCH 29.3 MCHC 30.8 L RDW 15.9 H Plt Count 254 MPV 8.7 Immature Gran % 0.2 Neutrophils % 41.1 Lymphocytes % 40.1 Monocytes % 4.4 Eosinophils % 12.9 Basophils % 1.3 Nucleated RBC % 0 Absolute Neutrophils 2.63 Absolute Lymphocytes 2.56 Absolute Monocytes 0.28 Absolute Eosinophils 0.82 H Absolute Basophils 0.08 PT 10.3 INR 1.0 APTT 23.5 Sodium 137 Potassium 3.8 Chloride 101 Carbon Dioxide 29.0 Anion Gap 7.0 BUN 9 Creatinine 0.69 Estimated GFR/1.73 m2 >= 60.00 Glucose 82 Uric Acid Calcium 8.7 Phosphorus Total Bilirubin 0.7 AST 21 ALT 12 L Alkaline Phosphatase 99 Lactate Dehydrogenase Total Protein 6.1 L Albumin 3.2 L Urine Color Urine Clarity Urine pH Ur Specific [place] Urine Protein Urine Ketones Urine Blood Urine Nitrite Urine Bilirubin Urine Urobilinogen Ur Leukocyte Esterase Urine RBC Urine WBC Ur Epithelial Cells Urine Crystals Urine Bacteria Urine Casts Urine Mucus Urine Other Ur Culture Indicated? Urine Glucose 05/17/20 05/17/20 12:25 12:48 WBC RBC Hgb Hct MCV MCH MCHC RDW Plt Count MPV Immature Gran % Neutrophils % Lymphocytes % Monocytes % Eosinophils % Basophils % Nucleated RBC % Absolute Neutrophils Absolute Lymphocytes Absolute Monocytes Absolute Eosinophils Absolute Basophils PT INR APTT Sodium Potassium Chloride Carbon Dioxide Anion Gap BUN Creatinine Estimated GFR/1.73 m2 Glucose Uric Acid 6.1 H Calcium Phosphorus 4.7 Total Bilirubin AST ALT Alkaline Phosphatase Lactate Dehydrogenase 175 Total Protein Albumin Urine Color [place] Urine Clarity Sl cloudy Urine pH 5.5 Ur Specific [place] >= 1.030 H Urine Protein 100 H Urine Ketones Trace H Urine Blood Trace-intact H Urine Nitrite Negative Urine Bilirubin Moderate H Urine Urobilinogen 1.0 H Ur Leukocyte Esterase Negative Urine RBC 5-10 H Urine WBC 0-2 Ur Epithelial Cells Many Urine Crystals Negative Urine Bacteria Many Urine Casts Negative Urine Mucus Heavy Urine Other Moderate renal Ur Culture Indicated? No/sq. contamination Urine Glucose Negative HPI General Mode of arrival: ambulatory. Date/Time Provider Initiated Documentation: 05/17/20 11:14. Limitations to Documentation: no limitations. Information obtained by: patient. HPI Narrative: Patient is a 64-year-old female with a history of stage IV lymphoma, COPD, asthma, migraines and hypothyroidism who presents for difficulty urinating and swelling in both legs for the past 2 months. Patient states she last saw her oncologist Dr. Manning 2 months ago and states since then her symptoms started and have been progressing. Patient was seen here last month for difficulty with urination and treated for possible UTI which she finished without any change in her symptoms. She states when she tries to urinate she has only small drips that come out. She states she had been feeling suprapubic pressure but denies any significant pain now. She denies fever, headache, chest pain, shortness of breath, nausea, vomiting, diarrhea, dysuria, hematuria. Related Data Home Medications Medication Instructions Recorded Confirmed simvastatin 40 mg PO DAILY 11/23/12 05/17/20 albuterol sulfate [ProAir HFA] 8.5 gm INHALATION TID PRN PRN 11/24/12 05/17/20 Narcan 4 mg INTRANASAL Q2-3M PRN 05/01/20 05/17/20 Spiriva with HandiHaler 1 cap INHALATION DAILY 05/01/20 05/17/20 duloxetine [Cymbalta] 60 mg PO DAILY 05/01/20 05/17/20 oxycodone-acetaminophen 1 tab PO TID PRN 05/01/20 05/17/20 prochlorperazine maleate 10 mg PO TID PRN 05/01/20 05/17/20 apixaban [Eliquis] 10 mg PO BID #60 tab 05/17/20 mirabegron [Myrbetriq] 25 mg PO DAILY #30 tab 05/17/20 Previous Rx's Medication Instructions Recorded apixaban [Eliquis] 10 mg PO BID #60 tab 05/17/20 mirabegron [Myrbetriq] 25 mg PO DAILY #30 tab 05/17/20 Allergies Allergy/AdvReac Type Severity Reaction Status Date / Time lamotrigine Allergy Unknown Unverified 05/17/20 11:30 milnacipran [From [place]] Allergy Unknown Unverified 05/17/20 11:30 varenicline Allergy Unknown Unverified 05/17/20 11:30 General Stated Complaint: GenMedical CHANDNI: 3 Review of Systems All systems reviewed & are unremarkable except as noted in HPI and below Constitutional Constitutional: Reports as per HPI, Denies chills and Denies fever(s) Eyes Eyes: Denies blurry vision ENT Ears, Nose, Mouth, and Throat: Denies dizziness, Denies sore throat and Denies throat swelling Cardiovascular Cardiovascular: Denies chest pain and Denies dyspnea Respiratory Respiratory: Denies cough and Denies dyspnea Gastrointestinal Gastrointestinal: Denies abdominal pain, Denies diarrhea and Denies vomiting Genitourinary Genitourinary: Denies hematuria, Reports difficulty voiding and Denies dysuria Musculoskeletal Musculoskeletal: Denies back pain and Denies numbness Integumentary/Breasts Skin/Breast: Denies lesions and Denies rash Neurologic Neurologic: Denies dizziness, Denies localized weakness and Denies numbness Allergic/Immunologic Allergic/Immunologic: Denies throat swelling [facility] Medical History Asthma Bone metastasis Depression Fibromyalgia Hemangioma of liver Hyperlipidemia Hypothyroidism Major depression Stage Karley non Hodgkin's lymphoma Vitamin D deficiency Surgical History (Updated 08/08/15 @ 11:24 by Rajwinder Valdez MD) Biopsy, Lymph Node excision ganglion cyst Social History Smoking/Tobacco Use Status: Current every day Tobacco Type: cigarettes Alcohol Intake: current Alcohol Intake frequency: holidays/special occasions only Drug use: Never Do you feel safe at home: Yes Do you feel safe in your relationship?: Yes Exam Const General: cooperative, no acute distress and ill appearing chronically Orientation: alert and awake HENMT Head: normal to inspection Ears: hearing grossly normal bilaterally and external ears normal General nose exam: external nose normal Face and sinus: normal facial exam Mouth: oral mucosae normal Eyes General: appearance normal, both eyes and all related structures Eyelids: eyelids normal Pupils: PERRL EOM: EOM intact bilaterally Neck Neck: normal visual inspection Lymphatic: no lymphadenopathy noted Chest Chest: normal inspection of the chest Resp Effort & Inspection: normal respiratory effort and able to speak in complete sentences Auscultation: clear to auscultation bilaterally Cardio Rate: regular rate Rhythm: regular rhythm GI Inspection: normal to inspection Palpation: soft, not firm, no guarding, no hepatosplenomegaly, no masses and nontender Auscultation: normal bowel sounds Skin General skin exam: no rashes or lesions noted Neuro General: patient alert and patient awake Cognition: normal cognition Speech: speech normal Gait: normal gait Motor: muscle tone normal throughout Sensory Exam: no sensory deficits noted Extrem General: normal to inspection, full ROM, capillary refill normal and edema Laterality: bilateral (2+ pitting lower extremities) Psych Appearance: grossly normal Mental Status: mental status grossly normal Speech and Movement: speech and movement normal Affect: normal affect Thought Process: normal Course Vital Signs Vital signs: Vital Signs Temperature 98.2 F 05/17/20 11:24 Pulse 94 H 05/17/20 11:24 Respiratory Rate 18 05/17/20 11:24 Blood Pressure 130/80 05/17/20 11:24 Pulse Oximetry 94 05/17/20 11:24 Temperature 98.2 F 05/17/20 11:24 Temperature Source Oral 05/17/20 11:24 Pulse 94 H 05/17/20 11:24 Respiratory Rate 18 05/17/20 11:24 Respiratory Effort Non-Labored 05/17/20 11:33 Respiratory Depth Normal 05/17/20 11:33 Respiratory Pattern Normal 05/17/20 11:33 Blood Pressure 130/80 05/17/20 11:24 Blood Pressure Position Sitting 05/17/20 11:24 Pulse Oximetry 94 05/17/20 11:24 Oxygen Delivery Method Room Air 05/17/20 11:24 Oxygen Flow Rate 0 05/17/20 11:24
--- NOTE | 2020-05-17 12:30 | DI.CT_ITS ---
EXAM: CT CHEST PE ABD PELVIS W CLINICAL HISTORY: unable to urinate, leg edema, r/o acute mass TECHNIQUE: CT examination of the chest, abdomen, and pelvis was performed utilizing intravenous inf usion of 100 cc of Omnipaque 350 with biphasic hepatic imaging. Oral contrast was also administered. COMPARISON: CT CT CHEST/ABD/PEL W from 11/23/2019 FINDINGS: There are severe changes of pulmonary emphysema. There is a 6 millimeter right lung nodule which is pleural-based posteriorly, probably present on prior examination of November 2019. There is a new large r ight pleural effusion. There is no gross pulmonary embolic disease. There is normal diameter of the thoracic aorta. There is new bilateral axillary adenopathy, the largest conglomerate node in the right axilla measuri ng about 3 cm in diameter, not present on prior scan of November 2019. There is very poorly defined increased radiodensity pretracheal and AP window not present on the prio r study, highly suspicious for adenopathy as well. No new pulmonary consolidation seen. There are stable low-attenuation lesions noted in the liver, unchanged from prior CT of 2016 and cons istent with benign process. No new intrahepatic findings. Spleen is markedly enlarged, new since November of 2019. There is very prominent paracaval and para-aorti c adenopathy with adenopathy also seen in inguinal, internal and external iliac chains and common aung ac chains. There is marked abdominal ascites which was not previously present. No gross bowel obstr uction. Ferro catheter noted in place in the urinary bladder. No urinary tract obstruction. Pancre as is grossly unremarkable. Gallbladder distended, nonspecific. No biliary dilatation. No focal bony lesion identified on scanning of the chest, abdomen or pelvis. IMPRESSION: Findings highly suggestive of recurrent lymphoma, new since prior scan of November 2019, with new axillary , pretracheal, AP window, retroperitoneal and pelvic adenopathy as well as a large right pleural effu elias and extensive abdominal ascites. Marked splenomegaly noted which is also new and presumably represents neoplastic change. Stable hepatic lesions noted. RADIATION DOSE DELIVERED: 1,040.69mGy.cm Total DLP 1,040.69mGy.cm Total DLP
[2020-05-17 12:33] LABS: Abs Immature Grans 0.01 10^3/uL (0.0-0.06); Absolute Basophil Count 0.08 10^3/uL (0.0-0.2); Absolute Eosinophil Count 0.82 10^3/uL (0.0-0.7); Absolute Lymphocyte Count 2.56 10^3/uL (1.2-3.4); Absolute Monocyte Count 0.28 10^3/uL (0.1-0.8); Absolute Neutrophil Count 2.63 10^3/uL (1.2-6.7); Basophils % 1.3; Eosinophils % 12.9; HCT 31.5 % (36.0-46.0); HGB 9.7 g/dL (11.2-15.7); Immature Grans % 0.2; Lymphocytes % 40.1; MCH 29.3 pg (27.0-33.0); MCHC 30.8 % (32.0-36.0); MCV 95.2 fL (80-95); MPV 8.7 fL (8.0-11.0); Monocytes % 4.4; Neutrophils % 41.1; Nucleated RBC 0 %; Platelet Count 254 10^3/uL (130-400); RBC 3.31 10^6/uL (3.93-5.22); RDW 15.9 % (11.7-14.6); RDW-SD 55.7 fL; WBC 6.38 10^3/uL (4.4-10.8)
[2020-05-17 12:47] LABS: ALT 12 U/L (14-59); AST 21 U/L (15-37); Albumin 3.2 g/dL (3.4-5.0); Alkaline Phosphatase 99 U/L (46-116); BUN 9 mg/dL (7-18); Bilirubin, Total 0.7 mg/dL (0.2-1.0); CREATININE 0.69 mg/dL (0.55-1.02); Calcium 8.7 mg/dL (8.5-10.1); Chloride 101 mmol/L (98-107); Glucose 82 mg/dL (74-106); PTT Activated 23.5 sec (21.0-31.4); Potassium 3.8 mmol/L (3.5-5.1); Prothrombin Time 10.3 sec (9.3-11.0); Sodium 137 mmol/L (136-145); Total Protein 6.1 g/dL (6.4-8.2)
[2020-05-17 12:56] LABS: Bilirubin Moderate (Negative); Blood Trace-intact (Negative); Clarity Sl Cloudy (Clear); Glucose Negative (Negative); Ketones Trace mg/dL (Negative); Leukocyte Esterase Negative (Negative); Nitrite Negative (Negative); Specific Gravity >= 1.030 (1.005-1.025); pH 5.5 (5-8)
[2020-05-17 13:11] LABS: Bacteria Many HPF (Negative); C & S Indicated? No/Sq. Contamination; Casts Negative LPF (Negative); Crystals Negative HPF (Negative); Epithelial Cells Many HPF (Negative); Mucus Heavy (Negative); Other Cells Moderate Renal (Negative); WBC 0-2 HPF (0-5)
[2020-05-17] MEDS: Omnipaque 350 MG/ML 100 ML BTL IJ (13:12)
[2020-05-17] MEDS: Normal Saline Flush 10 ML SYR IVP (13:23)
[2020-05-17] MEDS: Normal Saline - Diluent 50 ML VIAL IV (13:24)
--- NOTE | 2020-05-17 14:11 | DI.VRAD_ITS ---
Addendum created by Kacey Cantor MD on 05/17/2020 5:35:28 PM EDT: Case was discussed with Dr. Guillen. The patient has a history of non-Hodgkin's lymphoma. The extensive adenopathy, splenomegaly is highly suspicious for disease recurrence. There is prominent bilateral axillary lymphadenopathy and these nodes likely are the most accessible to percutaneous biopsy. The largest right axillary lymph node measures approximately 29 x 15 mm as measured on coronal reformatted image 29, series 9. Initial report created on 05/17/2020 2:11:21 PM EDT: PROCEDURE INFORMATION: Exam: CT Angiography Chest With Contrast Exam date and time: 05/17/2020 11:52 AM Age: 64 years old Clinical indication: Other: Unable to urinate, leg edema, R/O acute mass TECHNIQUE: Imaging protocol: Computed tomographic angiography of the chest with intravenous contrast. 3D rendering (Not supervised by radiologist): MIP and/or 3D reconstructed images were created by the technologist. Radiation optimization: All CT scans at this facility use at least one of these dose optimization techniques: automated exposure control; mA and/or kV adjustment per patient size (includes targeted exams where dose is matched to clinical indication); or iterative reconstruction. Contrast material: OMNIPAQUE 350; Contrast route: INTRAVENOUS (IV); COMPARISON: CT CHEST/ABD/PEL W 11/23/2019 9:25 AM FINDINGS: Pulmonary arteries: The no definite intraluminal filling defect or intravascular thrombus is identified to suggest acute pulmonary embolus. Aorta: The aorta is nonaneurysmal. No acute aortic abnormality is identified. Lungs: Emphysematous changes are seen in both lungs. Bullae are seen at the lung apices. Linear opacities at the lung apices likely represent pleuroparenchymal scarring. There is no evidence of an endobronchial lesion. There is mild atelectasis in association with the right pleural effusion. No significant lobar consolidation is identified. There is a nonspecific nodule noted within the right lower lobe measuring approximately 6 mm in diameter on series 7, image 326. There is a possible additional tiny nodule posteriorly in the left lower lobe on image 356. Pleural space: Small to moderate right pleural effusion is noted. Trace left pleural effusion is noted. Heart: The heart is not enlarged. There is no significant pericardial effusion Lymph nodes: There is prominent bilateral axillary lymphadenopathy. No significantly enlarged mediastinal or hilar nodes are identified. Bones/joints: Degenerative changes are seen in the thoracic spine. No definite acute or destructive bony abnormality is identified. Soft tissues: There is some mild apparent stranding in the axillary soft tissues adjacent to the axillary adenopathy. There is some mild diffuse subcutaneous edema.. IMPRESSION: 1. No evidence of acute pulmonary embolus. 2. Right greater than left pleural effusion 3. Emphysema 4. Bilateral axillary lymphadenopathy, suspicious for neoplastic adenopathy in light of the findings described below 5. Small nonspecific lower lobe nodules as described. 6. For patients at low risk (minimal or absent history of smoking and of other known risk factors), recommend CT Chest at 6-12 months, then consider CT Chest at 18-24 months. For patients at high risk (history of smoking or of other known risk factors), recommend CT Chest at 6-12 months, then CT Chest at 18-24 months. (Reference: Arcelia) REFERENCES: Arcelia Arias et al. Guidelines for Management of Incidental Pulmonary Nodules Detected on CT Images: From the Fleischner Society 2017. Radiology. 2017;284(1):228-243. PROCEDURE INFORMATION: Exam: CT Abdomen And Pelvis With Contrast Exam date and time: 05/17/2020 11:52 AM Age: 64 years old Clinical indication: Other: Unable to urinate, leg edema, R/O acute mass TECHNIQUE: Imaging protocol: Computed tomography of the abdomen and pelvis with intravenous contrast. Radiation optimization: All CT scans at this facility use at least one of these dose optimization techniques: automated exposure control; mA and/or kV adjustment per patient size (includes targeted exams where dose is matched to clinical indication); or iterative reconstruction. Contrast material: OMNIPAQUE 350; Contrast volume: 100 ml; Contrast route: INTRAVENOUS (IV); COMPARISON: CT CHEST/ABD/PEL W 11/23/2019 9:25 AM FINDINGS: Liver: There is a low-density lesion noted at the dome of the liver with some peripheral enhancement. This is nonspecific and incompletely characterized on this examination but could represent an hepatic any angioma. There is a similar appearing smaller lesion lateral segment left lobe of the liver measuring approximately 13 mm on series 14, image 185. There is a 9 mm low-density lesion posteriorly, medially right lobe of the liver near the dome series 14, image 108. Additional tiny lesion series 14, image 161. The liver is enlarged. Superior to inferior extent of the right lobe of the liver is over 17 cm. Gallbladder and bile ducts: Gallbladder is distended. No gallstones. Extrahepatic common bile duct is prominent in size measuring 8 mm in diameter but there is no evidence of intrahepatic ductal dilatation. There is no CT evidence of choledocholithiasis. Pancreas: There is no evidence of a discrete pancreatic mass nor significant pancreatic ductal dilatation. Spleen: The spleen is enlarged. As measured on coronal re-formatted images it measures approximately 14.3 x 6.3 cm on image 49. No focal intra splenic abnormality is identified. Adrenals: The adrenals are unremarkable There is a in apparent left adrenal mass which measures approximately 3.3 by 2.1 cm in diameter on series 14, image 183. There is no evidence of a discrete right adrenal mass or nodule Kidneys and ureters: There are no radiopaque urinary tract calculi. There is no evidence of hydronephrosis. There is no evidence of a renal cortical mass. Stomach and bowel: There is no evidence of a bowel obstruction, mass or pneumatosis . There is some displacement of bowel loops the by the ascites fluid.. Appendix: No evidence of appendicitis. Intraperitoneal space: Ascites is noted in the abdomen and pelvis but there is no evidence of a discrete or drainable collection or abscess. No free air Vasculature: The aorta is nonaneurysmal. Atherosclerotic plaque is noted within the abdomen, pelvis. There is no acute aortic abnormality . The exam was not tailored to evaluate the venous structures of the lower extremities. However there are findings suspicious for possible deep venous thrombosis within the common femoral veins. For further evaluation for possible DVT correlation with vascular ultrasound recommended. Lymph nodes: There is conglomerate retroperitoneal adenopathy. Adenopathy is both periaortic and aortocaval in location. Pelvic/iliac adenopathy is identified. External iliac nodes measure up to 26 x 16 mm on series 14, image 603. Multiple bilateral inguinal nodes are also noted The retroperitoneal adenopathy likely contributes to venous compression of the IVC. Urinary bladder: Ferro catheter is seen in the urinary bladder. The bladder is decompressed. Reproductive: No significant uterine or adnexal abnormalities identified Bones/joints: There is compression deformity of the superior endplate of L4 age indeterminate. There is no other significant decrease of vertebral body height. No other definite acute or destructive bony abnormality is identified. The Soft tissues: There is diffuse subcutaneous edema left lower extremity appears larger than the right. Again to evaluate for DVT vascular ultrasound recommended IMPRESSION: 1. Abnormal exam. Extensive retroperitoneal, pelvic lymphadenopathy presumably neoplastic. Retroperitoneal adenopathy leads to apparent venous compression of the IVC . To the the better evaluate for deep venous thrombosis of the lower extremities venous ultrasound examination recommended 2. left adrenal mass/nodule the 3. Hepatosplenomegaly 4. Ascites 5 Multiple peripherally enhancing hepatic lesions incompletely characterized on this examination possibly hepatic hemangiomata. Dictated and Authenticated by: Kacey Cantor MD. Ordering:MARCE Callahan MD
[2020-05-17 16:34] LABS: LDH 175 U/L (81-234); PHOSPHORUS 4.7 mg/dL (2.6-4.7); Uric Acid 6.1 mg/dL (2.6-6.0)
[2020-05-17] MEDS: Apixaban 5 MG TAB 10 MG PO ×2 (16:57→17:54)
[2020-05-17] MEDS: Mirabegron 25 MG TABCR PO (16:57)
[2020-05-17] MEDS: Apixaban 5 MG TAB 20 MG PO (17:55)
--- NOTE | 2020-05-17 18:09 | NUR.NOTE ---
Referral faxed to [facility].Nursing Note:
== END 2020-05-17 18:06 | disposition home or self-care (01) ==
PROVIDERS: Emergency Provider Physician Assistant; PCP Nurse Practitioner Family
DX: R59.1 Generalized enlarged lymph nodes (principal); R60.0 Localized edema; R32 Unspecified urinary incontinence; C85.90 Non-Hodgkin lymphoma, unspecified, unspecified site
CPT/HCPCS: 36415; 51702; 71275; 74177; 80053; 96360; 99285; 81003; 81015; 83615; 84100; 84550; 85025; 85610; 85730; J3490

== ENCOUNTER 2020-05-19 09:49 | Outpatient (CLI) | payer MEDICARE, SELFPAY ==
--- NOTE | 2020-05-19 | DI.US_ITS ---
EXAM: US EXTREMITY VENOUS BI CLINICAL HISTORY: BILAT LOWER EXTREMITY EDEMA. TECHNIQUE: Ultrasound performed using standard protocol. COMPARISON: US RIGHT BREAST ULTRASOUND from 08/31/2013 FINDINGS: Duplex venous ultrasound was performed according to the usual protocol. The deep veins are freely com pressible throughout and there is normal flow augmentation with manual calf compression. 2D and Doppl er evaluation are unremarkable. IMPRESSION: No evidence of deep venous thrombosis of the right or left lower extremity. 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 DATA REPOSITORY:
== END 2020-05-19 10:09 ==
PROVIDERS: PCP Nurse Practitioner Family; Visit Provider Physician Assistant
DX: R60.0 Localized edema (principal); M72.2 Plantar fascial fibromatosis
CPT/HCPCS: 93970

== ENCOUNTER 2020-05-19 10:29 | Emergency (ER) | payer MEDICARE, SELFPAY ==
[2020-05-19 10:36] VITALS: BP 124/86; PULSE 89; RESP 16; TEMP 36.6; O2SAT 97
--- NOTE | 2020-05-19 11:34 | ED.GENADUL_ITS ---
Discharge Plan Discharge Details Chief Complaint: Recheck Primary Care Provider: Malachi Germain ED Provider: Zabrina Gutierrez Home Meds and New Rx's Prescriptions: No Action simvastatin 40 MG tablet 40 mg PO DAILY RF: 0 albuterol sulfate [ProAir HFA] 1 PUFF HFA aerosol inhaler 8.5 gm Inhalation TID PRN PRNRF: 0 prochlorperazine maleate 10 mg Tablet 10 mg PO TID PRNRF: 0 oxycodone-acetaminophen 10-325 mg Tablet 1 tab PO TID PRNRF: 0 Spiriva with HandiHaler 18 mcg Capsule, W/Inhalation Device 1 cap INHALATION DAILY RF: 0 duloxetine [Cymbalta] 60 mg Capsule,Delayed Release(Dr/Ec) 60 mg PO DAILY RF: 0 Narcan 4 mg/actuation [place],Non-Aerosol 4 mg INTRANASAL Q2-3M PRNRF: 0 Eliquis 5 mg tablet 10 mg PO BID Qty: 60 RF: 0 Myrbetriq 25 mg tablet extended release 24 hr 25 mg PO DAILY Qty: 30 RF: 0 Medical Decision Making Yanira Diop is a 64-year-old woman with a history of non-Hodgkin's lymphoma diagnosed 2012, hyperlipidemia, hypothyroidism who presented to the emergency department for ultrasound results after having ultrasound performed for rule out lower extremity DVT, the study was ordered from ED visit 05/17. Ultrasound resulted as negative. Patient reporting gradual progression of her chronic complaints but no new complaints since being seen here 05/17. She does report that Myrbetriq was unobtainable due to cost. Exam/history at this time is not consistent with acute emergent life-threatening medical condition. [facility] pharmacy was called, prescription must be called in by PCP for cost reduction. I spoke with triage nurse at patient's PCP office, who will relay information and prescription will be called in to the community pharmacy. Patient placed on care management list for outpatient follow-up to ensure scheduling of PET scan. I had a lengthy discussion with Patient regarding return to emergency department precautions, home care, and importance of outpatient follow-up. Pt verbalizes understanding of the plan and is amenable. Patient discharged to home with clear plan for outpatient follow-up. All questions were answered. Disposition decision was made weighing the risks and benefits of hospitalization versus outpatient treatment, the risk for further decompensation, and the patient's wishes. Medical Records Medical records reviewed: Yes I reviewed the patient's medical records. Imaging Data Radiologic Study: Attestation: I personally reviewed and interpreted this imaging study as follows: Radiologist's impression: EXAM: US EXTREMITY VENOUS BI CLINICAL HISTORY: BILAT LOWER EXTREMITY EDEMA. TECHNIQUE: Ultrasound performed using standard protocol. COMPARISON: US RIGHT BREAST ULTRASOUND from 08/31/2013 FINDINGS: Duplex venous ultrasound was performed according to the usual protocol. The deep veins are freely compressible throughout and there is normal flow augmentation with manual calf compression. 2D and Doppler evaluation are unremarkable. IMPRESSION: No evidence of deep venous thrombosis of the right or left lower extremity. 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 HPI General Mode of arrival: ambulatory . Date/Time Provider Initiated Documentation: 05/19/20 10:35 . Limitations to Documentation: no limitations . Information obtained by: patient, RN notes reviewed and old records reviewed . HPI Narrative: Yanira Diop is a 64-year-old woman with a history of non- Hodgkin's lymphoma, hyperlipidemia, asthma, hypothyroidism presenting to the emergency department for ultrasound results. Patient was seen here 05/17/2020 for 2 months of bilateral lower extremity edema and urinary retention. Patient underwent CT scanning showing extensive lymphadenopathy with compression of the IVC. [facility] oncology was consulted, concern for recurrence of non-Hodgkin's lymphoma diagnosed in 2012, they recommended outpatient PET scan and outpatient follow-up with Dr. Cabrera. Dr. Alba of urology was consulted for urinary retention, who recommended near Betrix 25 mg daily. There was concern for lower extremity DVT at the time of the visit, ultrasound was not available, patient was started on Eliquis with plan for ultrasound this morning. Patient had ultrasound performed and presents now to the emergency department for her results. Patient reports that she tried to fill Myrbetriq prescription, but she reports pharmacy told her cost would be $400. Patient states that she has had bilateral swelling of the feet and legs gradually worsening over the past few months, urinary retention gradually worsening over the past few months, and shortness of breath that she attributes to a sensation of abdominal fullness gradually progressing over the past few months. She denies any pain. She denies any new symptoms. Patient states that she would like help getting her PET scan scheduled, and she also requests that her Myrbetriq prescription be faxed to [facility] pharmacy to obtain this medication at a lower cost. She denies any other concerns today. Related Data Home Medications Medication Instructions Recorded Confirmed simvastatin 40 mg PO DAILY 11/23/12 05/19/20 albuterol sulfate [ProAir HFA] 8.5 gm INHALATION TID PRN PRN 11/24/12 05/19/20 Narcan 4 mg INTRANASAL Q2-3M PRN 05/01/20 05/19/20 Spiriva with HandiHaler 1 cap INHALATION DAILY 05/01/20 05/19/20 duloxetine [Cymbalta] 60 mg PO DAILY 05/01/20 05/19/20 oxycodone-acetaminophen 1 tab PO TID PRN 05/01/20 05/19/20 prochlorperazine maleate 10 mg PO TID PRN 05/01/20 05/19/20 apixaban [Eliquis] 10 mg PO BID #60 tab 05/17/20 05/19/20 mirabegron [Myrbetriq] 25 mg PO DAILY #30 tab 05/17/20 05/19/20 Previous Rx's Medication Instructions Recorded apixaban [Eliquis] 10 mg PO BID #60 tab 05/17/20 mirabegron [Myrbetriq] 25 mg PO DAILY #30 tab 05/17/20 Allergies Allergy/AdvReac Type Severity Reaction Status Date / Time lamotrigine Allergy Unknown Unverified 05/19/20 10:43 milnacipran [From Savella] Allergy Unknown Unverified 05/19/20 10:43 varenicline Allergy Unknown Unverified 05/19/20 10:43 General Stated Complaint: Recheck CHANDNI: 5 Review of Systems Narrative: Constitutional: denies fevers Eyes: denies eye pain ENT: denies ear pain, dental pain, sore throat Cardiovascular: denies chest pain, reports chronic bilateral lower extremity edema as per HPI Respiratory: denies cough, reports chronic shortness of breath as per HPI GI: denies abdominal pain, vomiting, diarrhea : denies flank pain, reports chronic urinary retention as per HPI MSK: denies back pain, neck pain, arthralgias, myalgias Skin: denies rash Neuro: denies headaches, numbness, weakness PFSH Medical History Asthma Bone metastasis Depression Fibromyalgia Hemangioma of liver Hyperlipidemia Hypothyroidism Major depression Stage Karley non Hodgkin's lymphoma Vitamin D deficiency Surgical History (Updated 08/08/15 @ 11:24 by Rajwinder Valdez MD) Biopsy, Lymph Node excision ganglion cyst Social History Smoking/Tobacco Use Status: Current every day Tobacco Type: cigarettes Alcohol Intake: current Alcohol Intake frequency: holidays/special occasions only Drug use: Never Do you feel safe at home: Yes Do you feel safe in your relationship?: Yes Exam Narrative Exam Narrative: Constitutional: well and [id number], pleasant, conversing normally HENT: head atraumatic/normocephalic/normal inspection, mucous membranes moist Eyes: conjunctiva normal, sclera normal, pupils 3mm b/l Neck: no stridor, normal ROM, trachea midline Resp: normal work of breathing, speaking in full sentences Cardio: normal rate, normal rhythm Skin: warm, dry, normal color, no rash Neuro: alert, not altered, grossly non-focal, normal tone Ext: 2+ pitting edema bilateral lower extremities, DP pulses intact bilaterally Psych: normal mood, normal affect, normal behavior Course Vital Signs Vital signs: Vital Signs Temperature 36.6 C 05/19/20 10:36 Pulse 89 05/19/20 10:36 Respiratory Rate 16 05/19/20 10:36 Blood Pressure 124/86 05/19/20 10:36 Pulse Oximetry 97 05/19/20 10:36 Temperature 36.6 C 05/19/20 10:36 Temperature Source Temporal Artery Scan 05/19/20 10:36 Pulse 89 05/19/20 10:36 Respiratory Rate 16 05/19/20 10:36 Respiratory Effort Non-Labored 05/19/20 10:42 Blood Pressure 124/86 05/19/20 10:36 Pulse Oximetry 97 05/19/20 10:36 Oxygen Delivery Method Room Air 05/19/20 10:36 Oxygen Flow Rate 0 05/19/20 10:36 Pain Level 3 05/19/20 10:36
== END 2020-05-19 11:56 ==
PROVIDERS: Emergency Provider Student in an Organized Health Care Education/Training Program; PCP Nurse Practitioner Family
DX: R60.0 Localized edema (principal); R33.8 Other retention of urine; Z71.2 Person consulting for explanation of examination or test findings; M72.2 Plantar fascial fibromatosis
CPT/HCPCS: 99281; 93970

== ENCOUNTER 2020-05-22 15:28 | Emergency (ER) | payer MEDICARE, SELFPAY ==
[2020-05-22 15:35] VITALS: BP 132/83; PULSE 91; TEMP 36.7; O2SAT 99
[2020-05-22 16:27] VITALS: BP 118/71; PULSE 96; RESP 16; TEMP 36.6; O2SAT 97
--- NOTE | 2020-05-22 16:44 | W.ED.GENAD ---
Discharge Plan Disposition Patient Disposition: [facility] Condition: Serious Discharge Details Clinical Impression: Decreased urination, Anasarca, Lymphoma Primary Care Provider: Malachi Germain ED Provider: Vinnie Gutierrez Home Meds and New Rx's Prescriptions: No Action simvastatin 40 MG tablet 40 mg PO DAILY RF: 0 oxycodone-acetaminophen 10-325 mg Tablet 1 tab PO TID PRNRF: 0 duloxetine [Cymbalta] 60 mg Capsule,Delayed Release(Dr/Ec) 60 mg PO DAILY RF: 0 Narcan 4 mg/actuation [place],Non-Aerosol 4 mg INTRANASAL Q2-3M PRNRF: 0 Discharge Data Discharge Date/Time-TO BE ENTERED AT DEPARTURE: 05/22/20 19:11 Medical Decision Making 16:50 --64-year-old female with active lymphoma, hepatitis B, here with anasarca, [place] [facility] [place] Patient provided informed refusal of additional diagnostic work-up including recommended labs. [place] to [facility] [place] requesting consultation is Dr. Cabrera's plan for transfer if this is preestablished plan and deemed appropriate. I did review labs that patient had done on 05/17/2020. Hemoglobin noted to be 9.7. Albumin 3.2. Patient does have a prior elevated TSH and elevated free T4 from 2012 with no more recent test 17:18 --I spoke with oncology fellow at [facility] [place] discussed ED presentation and course, patient to be excepted by Dr. Arellano. Awaiting bed placement. Patient provided consent to transfer [facility] General Mode of arrival: ambulatory. Date/Time Provider Initiated Documentation: 05/22/20 15:35. Limitations to Documentation: no limitations. Information obtained by: patient. HPI Narrative: 64-year-old female with history of follicular lymphoma, active lymphoma in the lymph nodes of the neck, bilateral axilla, retroperitoneum, bilateral external iliac and bilateral inguinal marily regions, breast nodule, diffuse mildly increased marrow activity, hepatitis B, here with chief complaint of swelling. Patient notes abdominal and bilateral leg swelling. Swelling is persistent and moderate, worsening over the past weeks. Patient notes no modifiers. She also notes that she has had decreased urination is only making tiny amounts of urine over the past couple weeks. Patient also notes decreased appetite and decreased bowel movements. Patient notes decreased appetite and decreased bowel movement for the past couple weeks. Patient states that she was told to come here to the emergency department to be transferred to [facility] per Dr. Manning (her oncologist). Related Data Home Medications Medication Instructions Recorded Confirmed simvastatin 40 mg PO DAILY 11/23/12 05/22/20 Narcan 4 mg INTRANASAL Q2-3M PRN 05/01/20 05/19/20 duloxetine [Cymbalta] 60 mg PO DAILY 05/01/20 05/22/20 oxycodone-acetaminophen 1 tab PO TID PRN 05/01/20 05/22/20 Allergies Allergy/AdvReac Type Severity Reaction Status Date / Time lamotrigine Allergy Unknown Unverified 05/19/20 10:43 milnacipran [From Savella] Allergy Unknown Unverified 05/19/20 10:43 varenicline Allergy Unknown Unverified 05/19/20 10:43 General Stated Complaint: Abd Prob CHANDNI: 3 Review of Systems All systems reviewed & are unremarkable except as noted in HPI and below Constitutional Constitutional: Denies fever(s) Gastrointestinal Gastrointestinal: Reports abdominal pain (fullness) and Reports change in bowel habits Genitourinary Genitourinary: Reports difficulty voiding PFSH Medical History Asthma Bone metastasis Depression Fibromyalgia Hemangioma of liver Hyperlipidemia Hypothyroidism Major depression Stage Karley non Hodgkin's lymphoma Vitamin D deficiency Surgical History Biopsy, Lymph Node excision ganglion cyst Social History Smoking/Tobacco Use Status: Current every day Tobacco Type: cigarettes Smoking risk assessment performed?: Yes Alcohol Intake: current Alcohol Intake frequency: holidays/special occasions only Drug use: Never Do you feel safe at home: Yes Do you feel safe in your relationship?: Yes Exam Const General: cooperative and no acute distress [facility] Head: normocephalic and atraumatic Mouth: moist mucous membranes Eyes Conjunctivae: normal conjunctivae Sclera: normal sclerae Neck Neck: trachea midline and supple Resp Auscultation: clear to auscultation bilaterally, no rales, no rhonchi and no wheezes Cardio Rate: regular rate and not tachycardic Rhythm: regular rhythm GI Palpation: soft, not firm, no guarding, no masses, not rigid, nontender and ascites Skin General skin exam: no rashes or lesions noted Neuro General: patient alert, patient awake, patient oriented x3 and tone normal Extrem General: edema Laterality: bilateral Psych Appearance: grossly normal Mental Status: mental status grossly normal Course Vital Signs Vital signs: Vital Signs Temperature 36.7 C 05/22/20 15:35 Pulse 91 H 05/22/20 15:35 Blood Pressure 132/83 05/22/20 15:35 Pulse Oximetry 99 05/22/20 15:35 Temperature 36.6 C 05/22/20 16:27 Temperature Source Skin 05/22/20 16:27 Pulse 96 H 05/22/20 16:27 Respiratory Rate 16 05/22/20 16:27 Blood Pressure 118/71 05/22/20 16:27 Blood Pressure Position Sitting 05/22/20 15:35 Pulse Oximetry 97 05/22/20 16:27 Oxygen Delivery Method Room Air 05/22/20 16:27 Oxygen Flow Rate 0 05/22/20 16:27 Pain Level 2 05/22/20 15:35
== END 2020-05-22 19:11 | disposition short-term general hospital (02) ==
PROVIDERS: Emergency Provider Student in an Organized Health Care Education/Training Program; PCP Nurse Practitioner Family
DX: R34 Anuria and oliguria (principal); R60.1 Generalized edema; C85.90 Non-Hodgkin lymphoma, unspecified, unspecified site
CPT/HCPCS: 80053; 99282; 83880; 85025

== ENCOUNTER 2020-06-16 02:19 | Outpatient (RCR) | payer MEDICARE, SELFPAY ==
[2020-06-04 09:53] LABS: Abs Immature Grans 0.47 10^3/uL (0.0-0.06); HCT 29.2 % (36.0-46.0); HGB 9.4 g/dL (11.2-15.7); MCH 30.7 pg (27.0-33.0); MCHC 32.2 % (32.0-36.0); MCV 95.4 fL (80-95); MPV 9.4 fL (8.0-11.0); Nucleated RBC 0 %; Platelet Count 340 10^3/uL (130-400); RBC 3.06 10^6/uL (3.93-5.22); RDW 17.2 % (11.7-14.6); RDW-SD 59.8 fL
[2020-06-04 10:05] LABS: ALT 13 U/L (14-59); AST 12 U/L (15-37); Albumin 3.3 g/dL (3.4-5.0); Alkaline Phosphatase 179 U/L (46-116); Anion Gap 3.1 mmol/L (3-11); BUN 11 mg/dL (7-18); Bilirubin, Total 0.5 mg/dL (0.2-1.0); CO2 34.9 mmol/L (21.0-32.0); CREATININE 0.72 mg/dL (0.55-1.02); Calcium 8.7 mg/dL (8.5-10.1); Chloride 102 mmol/L (98-107); Glucose 104 mg/dL (74-106); LDH 211 U/L (81-234); Potassium 3.9 mmol/L (3.5-5.1); Sodium 140 mmol/L (136-145); Total Protein 6.2 g/dL (6.4-8.2)
[2020-06-04 10:26] LABS: WBC 29.15 10^3/uL (4.4-10.8)
[2020-06-04 10:27] LABS: Absolute Eosinophil Count 0.29 10^3/uL (0.0-0.7); Absolute Lymphocyte Count 0.29 10^3/uL (1.2-3.4); Absolute Monocyte Count 0.87 10^3/uL (0.1-0.8); Absolute Neutrophil Count 27.69 10^3/uL (1.2-6.7); Bands % 7; Diff Comment Manual Differential; RBC Morphology Normal
[2020-06-11 08:34] LABS: Abs Immature Grans 0.06 10^3/uL (0.0-0.06); Absolute Basophil Count 0.07 10^3/uL (0.0-0.2); Absolute Lymphocyte Count 0.89 10^3/uL (1.2-3.4); Absolute Monocyte Count 0.32 10^3/uL (0.1-0.8); Basophils % 0.5; Eosinophils % 1.9; HGB 10.2 g/dL (11.2-15.7); Immature Grans % 0.4; Lymphocytes % 6.4; MCH 30.2 pg (27.0-33.0); MCHC 31.9 % (32.0-36.0); MCV 94.7 fL (80-95); MPV 9.4 fL (8.0-11.0); Monocytes % 2.3; Neutrophils % 88.5; Nucleated RBC 0 %; Platelet Count 460 10^3/uL (130-400); RBC 3.38 10^6/uL (3.93-5.22); RDW 16.4 % (11.7-14.6); RDW-SD 56.4 fL; WBC 13.92 10^3/uL (4.4-10.8)
[2020-06-11 08:39] LABS: Absolute Eosinophil Count 0.26 10^3/uL (0.0-0.7); Absolute Neutrophil Count 12.32 10^3/uL (1.2-6.7)
[2020-06-11 08:54] LABS: ALT 17 U/L (14-59); AST 14 U/L (15-37); Albumin 4.1 g/dL (3.4-5.0); Alkaline Phosphatase 171 U/L (46-116); Anion Gap 10.2 mmol/L (3-11); BUN 12 mg/dL (7-18); Bilirubin, Total 0.4 mg/dL (0.2-1.0); CO2 28.8 mmol/L (21.0-32.0); CREATININE 0.87 mg/dL (0.55-1.02); Chloride 99 mmol/L (98-107); Glucose 93 mg/dL (74-106); Sodium 138 mmol/L (136-145); Total Protein 7.7 g/dL (6.4-8.2)
== END 2020-06-23 23:59 | disposition home or self-care (01) ==
LOC: INF 02:19
PROVIDERS: PCP Nurse Practitioner Family; Visit Provider Internal Medicine Hematology & Oncology
DX: C82.97 Follicular lymphoma, unspecified, spleen (principal)
CPT/HCPCS: 36415; 80053; 86900; 86901; 83615; 85025

== ENCOUNTER 2020-06-17 03:55 | Outpatient (CLI) | payer MEDICARE, SELFPAY ==
[2020-06-17 11:58] LABS: Abs Immature Grans 0.03 10^3/uL (0.0-0.06); Absolute Basophil Count 0.02 10^3/uL (0.0-0.2); Absolute Eosinophil Count 0.17 10^3/uL (0.0-0.7); Absolute Lymphocyte Count 0.88 10^3/uL (1.2-3.4); Absolute Monocyte Count 0.54 10^3/uL (0.1-0.8); Absolute Neutrophil Count 7.57 10^3/uL (1.2-6.7); Basophils % 0.2; Eosinophils % 1.8; HCT 33.3 % (36.0-46.0); HGB 10.3 g/dL (11.2-15.7); Immature Grans % 0.3; Lymphocytes % 9.6; MCH 29.3 pg (27.0-33.0); MCHC 30.9 % (32.0-36.0); MCV 94.6 fL (80-95); MPV 8.7 fL (8.0-11.0); Monocytes % 5.9; Neutrophils % 82.2; Nucleated RBC 0 %; Platelet Count 410 10^3/uL (130-400); RBC 3.52 10^6/uL (3.93-5.22); RDW 15.5 % (11.7-14.6); RDW-SD 53.4 fL; WBC 9.21 10^3/uL (4.4-10.8)
[2020-06-17 12:12] LABS: ALT 18 U/L (14-59); AST 15 U/L (15-37); Albumin 3.7 g/dL (3.4-5.0); Alkaline Phosphatase 137 U/L (46-116); Anion Gap 6.4 mmol/L (3-11); BUN 11 mg/dL (7-18); Bilirubin, Total 0.4 mg/dL (0.2-1.0); CO2 28.6 mmol/L (21.0-32.0); CREATININE 0.69 mg/dL (0.55-1.02); Calcium 8.9 mg/dL (8.5-10.1); Chloride 105 mmol/L (98-107); Glucose 87 mg/dL (74-106); LDH 162 U/L (81-234); Potassium 4.1 mmol/L (3.5-5.1); Sodium 140 mmol/L (136-145)
== END 2020-06-17 04:15 ==
PROVIDERS: PCP Nurse Practitioner Family; Visit Provider Internal Medicine Hematology & Oncology
DX: C82.00 Follicular lymphoma grade I, unspecified site (principal)
CPT/HCPCS: 36415; 80053; 83615; 85025

== ENCOUNTER 2020-06-25 09:05 | Outpatient (REF) | payer MEDICARE, SELFPAY ==
[2020-06-25 09:18] LABS: Abs Immature Grans 0.01 10^3/uL (0.0-0.06); Absolute Basophil Count 0.04 10^3/uL (0.0-0.2); Absolute Lymphocyte Count 1.33 10^3/uL (1.2-3.4); Absolute Monocyte Count 0.45 10^3/uL (0.1-0.8); Absolute Neutrophil Count 3.52 10^3/uL (1.2-6.7); Basophils % 0.7; Eosinophils % 1.8; HCT 31.5 % (36.0-46.0); Immature Grans % 0.2; Lymphocytes % 24.4; MCH 29.7 pg (27.0-33.0); MCHC 31.7 % (32.0-36.0); MCV 93.5 fL (80-95); MPV 9.4 fL (8.0-11.0); Monocytes % 8.3; Neutrophils % 64.6; Nucleated RBC 0 %; Platelet Count 419 10^3/uL (130-400); RBC 3.37 10^6/uL (3.93-5.22); RDW 14.6 % (11.7-14.6); RDW-SD 49.6 fL; WBC 5.45 10^3/uL (4.4-10.8)
[2020-06-25 09:29] LABS: ALT 17 U/L (14-59); AST 17 U/L (15-37); Albumin 3.6 g/dL (3.4-5.0); Alkaline Phosphatase 108 U/L (46-116); Anion Gap 4.8 mmol/L (3-11); BUN 9 mg/dL (7-18); Bilirubin, Total 0.3 mg/dL (0.2-1.0); CO2 29.2 mmol/L (21.0-32.0); CREATININE 0.52 mg/dL (0.55-1.02); Calcium 8.7 mg/dL (8.5-10.1); Chloride 105 mmol/L (98-107); Glucose 81 mg/dL (74-106); LDH 171 U/L (81-234); Sodium 139 mmol/L (136-145); Total Protein 6.6 g/dL (6.4-8.2)
[2020-06-27 01:07] LABS: HBV DNA Detect/Quant, PCR Undetected IU/mL (Undetected)
== END 2020-06-25 09:25 ==
LOC: LBN 09:05
PROVIDERS: Internal Medicine Hematology & Oncology; PCP Nurse Practitioner Family; Visit Provider Nurse Practitioner Family
DX: C82.97 Follicular lymphoma, unspecified, spleen (principal)
CPT/HCPCS: 80053; 87517; 83615; 85025

== ENCOUNTER 2020-07-23 02:15 | Outpatient (RCR) | payer MEDICARE, SELFPAY ==
[2020-07-09] MEDS: Normal Saline Flush 10 ML SYR IVP (09:50)
[2020-07-09] MEDS: Heparin 500 UNITS/5 ML SYRINGE IV (09:50)
[2020-07-09 10:30] LABS: Abs Immature Grans 0.01 10^3/uL (0.0-0.06); Absolute Basophil Count 0.02 10^3/uL (0.0-0.2); Absolute Eosinophil Count 0.15 10^3/uL (0.0-0.7); Absolute Lymphocyte Count 0.46 10^3/uL (1.2-3.4); Absolute Monocyte Count 0.52 10^3/uL (0.1-0.8); Absolute Neutrophil Count 2.89 10^3/uL (1.2-6.7); Basophils % 0.5; Eosinophils % 3.7; HCT 35.1 % (36.0-46.0); HGB 11.2 g/dL (11.2-15.7); Immature Grans % 0.2; Lymphocytes % 11.4; MCH 29.3 pg (27.0-33.0); MCHC 31.9 % (32.0-36.0); MCV 91.9 fL (80-95); MPV 9.4 fL (8.0-11.0); Monocytes % 12.8; Neutrophils % 71.4; Nucleated RBC 0 %; Platelet Count 318 10^3/uL (130-400); RBC 3.82 10^6/uL (3.93-5.22); RDW 14.7 % (11.7-14.6); RDW-SD 49.7 fL; WBC 4.05 10^3/uL (4.4-10.8)
[2020-07-23] MEDS: Normal Saline Flush 10 ML SYR IVP (07:16)
[2020-07-23 07:25] LABS: Absolute Basophil Count 0.02 10^3/uL (0.0-0.2); Absolute Eosinophil Count 0.19 10^3/uL (0.0-0.7); Absolute Monocyte Count 0.36 10^3/uL (0.1-0.8); Absolute Neutrophil Count 1.54 10^3/uL (1.2-6.7); Basophils % 0.7; Eosinophils % 6.5; HCT 36.6 % (36.0-46.0); HGB 11.8 g/dL (11.2-15.7); Lymphocytes % 27.5; MCH 29.3 pg (27.0-33.0); MCHC 32.2 % (32.0-36.0); MCV 90.8 fL (80-95); MPV 9.6 fL (8.0-11.0); Monocytes % 12.4; Neutrophils % 52.9; Nucleated RBC 0 %; Platelet Count 238 10^3/uL (130-400); RBC 4.03 10^6/uL (3.93-5.22); RDW-SD 47.8 fL; WBC 2.91 10^3/uL (4.4-10.8)
[2020-07-23 07:39] LABS: ALT 35 U/L (14-59); AST 30 U/L (15-37); Albumin 3.8 g/dL (3.4-5.0); Alkaline Phosphatase 128 U/L (46-116); Anion Gap 5.9 mmol/L (3-11); BUN 8 mg/dL (7-18); Bilirubin, Total 0.4 mg/dL (0.2-1.0); CO2 28.1 mmol/L (21.0-32.0); CREATININE 0.73 mg/dL (0.55-1.02); Calcium 8.6 mg/dL (8.5-10.1); Chloride 105 mmol/L (98-107); Glucose 98 mg/dL (74-106); LDH 173 U/L (81-234); Potassium 3.9 mmol/L (3.5-5.1); Sodium 139 mmol/L (136-145); Total Protein 6.6 g/dL (6.4-8.2)
== END 2020-07-24 23:59 | disposition home or self-care (01) ==
LOC: INF 02:15
PROVIDERS: Internal Medicine Hematology & Oncology; PCP Nurse Practitioner Family; Visit Provider Internal Medicine Hematology & Oncology
DX: C82.97 Follicular lymphoma, unspecified, spleen (principal); Z45.2 Encounter for adjustment and management of vascular access device
CPT/HCPCS: 36591; 80053; 86850; 86900; 86901; 83615; 85025

== ENCOUNTER 2020-08-20 02:14 | Outpatient (RCR) | payer MEDICARE, SELFPAY ==
[2020-08-20] MEDS: Normal Saline Flush 10 ML SYR IVP (07:42)
[2020-08-20 07:50] LABS: Absolute Basophil Count 0.03 10^3/uL (0.0-0.2); Absolute Eosinophil Count 0.09 10^3/uL (0.0-0.7); Absolute Lymphocyte Count 0.37 10^3/uL (1.2-3.4); Absolute Monocyte Count 0.26 10^3/uL (0.1-0.8); Absolute Neutrophil Count 1.55 10^3/uL (1.2-6.7); Basophils % 1.3; Eosinophils % 3.9; HCT 36.5 % (36.0-46.0); HGB 12.1 g/dL (11.2-15.7); Lymphocytes % 16.1; MCH 29.7 pg (27.0-33.0); MCHC 33.2 % (32.0-36.0); MCV 89.5 fL (80-95); MPV 8.9 fL (8.0-11.0); Monocytes % 11.3; Neutrophils % 67.4; Nucleated RBC 0 %; Platelet Count 240 10^3/uL (130-400); RBC 4.08 10^6/uL (3.93-5.22); RDW 14.1 % (11.7-14.6); RDW-SD 45.9 fL
[2020-08-20 08:04] LABS: ALT 25 U/L (14-59); AST 22 U/L (15-37); Albumin 3.9 g/dL (3.4-5.0); Alkaline Phosphatase 120 U/L (46-116); Anion Gap 6.5 mmol/L (3-11); BUN 11 mg/dL (7-18); Bilirubin, Total 0.4 mg/dL (0.2-1.0); CO2 29.5 mmol/L (21.0-32.0); CREATININE 0.63 mg/dL (0.55-1.02); Calcium 8.9 mg/dL (8.5-10.1); Chloride 105 mmol/L (98-107); Glucose 100 mg/dL (74-106); LDH 180 U/L (81-234); Sodium 141 mmol/L (136-145); Total Protein 6.7 g/dL (6.4-8.2)
[2020-08-21 20:43] LABS: HBV DNA Detect/Quant, PCR Undetected IU/mL (Undetected)
== END 2020-08-24 23:59 | disposition home or self-care (01) ==
LOC: INF 02:14
PROVIDERS: Nurse Practitioner Family; PCP Nurse Practitioner Family; Visit Provider Internal Medicine Hematology & Oncology
DX: C82.97 Follicular lymphoma, unspecified, spleen (principal); Z45.2 Encounter for adjustment and management of vascular access device
CPT/HCPCS: 36591; 80053; 86900; 86901; 87517; 83615; 85025

== ENCOUNTER 2020-09-17 02:13 | Outpatient (RCR) | payer MEDICARE, SELFPAY ==
[2020-09-17] MEDS: Normal Saline Flush 10 ML SYR IVP (07:33)
[2020-09-17 07:44] LABS: Absolute Basophil Count 0.02 10^3/uL (0.0-0.2); Absolute Lymphocyte Count 0.34 10^3/uL (1.2-3.4); Absolute Monocyte Count 0.36 10^3/uL (0.1-0.8); Absolute Neutrophil Count 1.59 10^3/uL (1.2-6.7); Basophils % 0.8; Eosinophils % 4.1; HGB 11.2 g/dL (11.2-15.7); Lymphocytes % 14.1; MCH 29.6 pg (27.0-33.0); MCHC 32.9 % (32.0-36.0); MCV 89.9 fL (80-95); MPV 9.2 fL (8.0-11.0); Monocytes % 14.9; Neutrophils % 66.1; Nucleated RBC 0 %; Platelet Count 242 10^3/uL (130-400); RBC 3.78 10^6/uL (3.93-5.22); RDW 14.5 % (11.7-14.6); RDW-SD 47.8 fL; WBC 2.41 10^3/uL (4.4-10.8)
[2020-09-17 07:57] LABS: ALT 30 U/L (14-59); AST 22 U/L (15-37); Albumin 3.6 g/dL (3.4-5.0); Alkaline Phosphatase 142 U/L (46-116); Anion Gap 5.7 mmol/L (3-11); BUN 11 mg/dL (7-18); Bilirubin, Total 0.4 mg/dL (0.2-1.0); CO2 28.3 mmol/L (21.0-32.0); CREATININE 0.6 mg/dL (0.55-1.02); Calcium 8.6 mg/dL (8.5-10.1); Chloride 105 mmol/L (98-107); Glucose 108 mg/dL (74-106); LDH 204 U/L (81-234); Potassium 4.1 mmol/L (3.5-5.1); Sodium 139 mmol/L (136-145); Total Protein 6.6 g/dL (6.4-8.2)
[2020-09-20 11:51] LABS: HBV DNA Detect/Quant, PCR Undetected IU/mL (Undetected)
== END 2020-09-21 23:59 | disposition home or self-care (01) ==
LOC: INF 02:13
PROVIDERS: Internal Medicine Hematology & Oncology; PCP Nurse Practitioner Family; Visit Provider Internal Medicine Hematology & Oncology
DX: C82.97 Follicular lymphoma, unspecified, spleen (principal); Z45.2 Encounter for adjustment and management of vascular access device
CPT/HCPCS: 36591; 80053; 87517; 83615; 85025

== ENCOUNTER 2020-10-15 03:02 | Outpatient (RCR) | payer MEDICARE, SELFPAY ==
[2020-10-15 07:40] LABS: Abs Immature Grans 0.01 10^3/uL (0.0-0.06); Absolute Basophil Count 0.02 10^3/uL (0.0-0.2); Absolute Eosinophil Count 0.18 10^3/uL (0.0-0.7); Absolute Lymphocyte Count 0.81 10^3/uL (1.2-3.4); Absolute Monocyte Count 0.34 10^3/uL (0.1-0.8); Absolute Neutrophil Count 2.11 10^3/uL (1.2-6.7); Basophils % 0.6; Eosinophils % 5.2; HCT 34.9 % (36.0-46.0); HGB 11.4 g/dL (11.2-15.7); Immature Grans % 0.3; Lymphocytes % 23.3; MCH 29.6 pg (27.0-33.0); MCHC 32.7 % (32.0-36.0); MCV 90.6 fL (80-95); Monocytes % 9.8; Neutrophils % 60.8; Nucleated RBC 0 %; Platelet Count 293 10^3/uL (130-400); RBC 3.85 10^6/uL (3.93-5.22); RDW 14.7 % (11.7-14.6); RDW-SD 49.1 fL; WBC 3.47 10^3/uL (4.4-10.8)
[2020-10-15 08:01] LABS: ALT 21 U/L (14-59); AST 17 U/L (15-37); Albumin 3.4 g/dL (3.4-5.0); Alkaline Phosphatase 115 U/L (46-116); Anion Gap 7.3 mmol/L (3-11); BUN 18 mg/dL (7-18); Bilirubin, Total 0.3 mg/dL (0.2-1.0); CO2 28.7 mmol/L (21.0-32.0); CREATININE 0.6 mg/dL (0.55-1.02); Calcium 8.5 mg/dL (8.5-10.1); Chloride 105 mmol/L (98-107); Glucose 111 mg/dL (74-106); LDH 186 U/L (81-234); Potassium 3.9 mmol/L (3.5-5.1); Sodium 141 mmol/L (136-145); Total Protein 6.6 g/dL (6.4-8.2)
[2020-10-15] MEDS: Normal Saline Flush 10 ML SYR IVP (08:05)
[2020-10-16 22:45] LABS: HBV DNA Detect/Quant, PCR Undetected IU/mL (Undetected)
== END 2020-10-22 23:59 | disposition home or self-care (01) ==
LOC: INF 03:02
PROVIDERS: PCP Nurse Practitioner Family; Visit Provider Internal Medicine Hematology & Oncology
DX: C82.97 Follicular lymphoma, unspecified, spleen (principal); Z45.2 Encounter for adjustment and management of vascular access device
CPT/HCPCS: 36591; 80053; 87517; 83615; 85025

== ENCOUNTER 2021-01-21 02:31 | Outpatient (RCR) | payer MEDICARE, SELFPAY ==
[2021-01-21] MEDS: Normal Saline Flush 10 ML SYR IVP (08:15)
[2021-01-21 08:19] LABS: Abs Immature Grans 0.01 10^3/uL (0.0-0.06); Absolute Basophil Count 0.02 10^3/uL (0.0-0.2); Absolute Lymphocyte Count 0.48 10^3/uL (1.2-3.4); Absolute Monocyte Count 0.32 10^3/uL (0.1-0.8); Absolute Neutrophil Count 2.11 10^3/uL (1.2-6.7); Basophils % 0.7; Eosinophils % 3.3; HCT 34.6 % (36.0-46.0); HGB 11.4 g/dL (11.2-15.7); Immature Grans % 0.3; Lymphocytes % 15.8; MCH 30.8 pg (27.0-33.0); MCHC 32.9 % (32.0-36.0); MCV 93.5 fL (80-95); Monocytes % 10.5; Neutrophils % 69.4; Nucleated RBC 0 %; Platelet Count 237 10^3/uL (130-400); RDW 13.1 % (11.7-14.6); RDW-SD 45.1 fL; WBC 3.04 10^3/uL (4.4-10.8)
[2021-01-21 08:33] LABS: ALT 26 U/L (14-59); AST 20 U/L (15-37); Albumin 3.7 g/dL (3.4-5.0); Alkaline Phosphatase 93 U/L (46-116); Anion Gap 6.9 mmol/L (3-11); BUN 9 mg/dL (7-18); Bilirubin, Total 0.4 mg/dL (0.2-1.0); CO2 29.1 mmol/L (21.0-32.0); CREATININE 0.8 mg/dL (0.55-1.02); Calcium 8.6 mg/dL (8.5-10.1); Chloride 105 mmol/L (98-107); Glucose 82 mg/dL (74-106); LDH 189 U/L (81-234); Potassium 3.9 mmol/L (3.5-5.1); Sodium 141 mmol/L (136-145); Total Protein 6.6 g/dL (6.4-8.2)
[2021-01-23 17:46] LABS: HBV DNA Detect/Quant, PCR Undetected IU/mL (Undetected)
== END 2021-01-21 23:59 | disposition home or self-care (01) ==
LOC: INF 02:31
PROVIDERS: PCP Nurse Practitioner Family; Visit Provider Internal Medicine Hematology & Oncology
DX: C82.97 Follicular lymphoma, unspecified, spleen (principal); Z45.2 Encounter for adjustment and management of vascular access device
CPT/HCPCS: 36591; 80053; 87517; 83615; 85025

== ENCOUNTER 2021-03-25 02:16 | Outpatient (RCR) | payer MEDICARE, SELFPAY ==
[2021-03-25] MEDS: Normal Saline Flush 10 ML SYR IVP (08:08)
[2021-03-25 08:30] LABS: Abs Immature Grans 0.01 10^3/uL (0.0-0.06); Absolute Basophil Count 0.03 10^3/uL (0.0-0.2); Absolute Eosinophil Count 0.22 10^3/uL (0.0-0.7); Absolute Lymphocyte Count 0.43 10^3/uL (1.2-3.4); Absolute Monocyte Count 0.31 10^3/uL (0.1-0.8); Absolute Neutrophil Count 2.45 10^3/uL (1.2-6.7); Basophils % 0.9; Eosinophils % 6.4; HCT 36.5 % (36.0-46.0); HGB 11.7 g/dL (11.2-15.7); Immature Grans % 0.3; Lymphocytes % 12.5; MCH 30.2 pg (27.0-33.0); MCHC 32.1 % (32.0-36.0); MCV 94.3 fL (80-95); Neutrophils % 70.9; Nucleated RBC 0 %; Platelet Count 264 10^3/uL (130-400); RBC 3.87 10^6/uL (3.93-5.22); RDW 13.8 % (11.7-14.6); RDW-SD 47.6 fL; WBC 3.45 10^3/uL (4.4-10.8)
[2021-03-25 08:44] LABS: ALT 29 U/L (14-59); AST 22 U/L (15-37); Albumin 3.7 g/dL (3.4-5.0); Alkaline Phosphatase 88 U/L (46-116); Anion Gap 6.2 mmol/L (3-11); BUN 11 mg/dL (7-18); Bilirubin, Total 0.3 mg/dL (0.2-1.0); CO2 29.8 mmol/L (21.0-32.0); CREATININE 0.8 mg/dL (0.55-1.02); Calcium 8.8 mg/dL (8.5-10.1); Chloride 102 mmol/L (98-107); Glucose 105 mg/dL (74-106); LDH 197 U/L (81-234); Potassium 3.9 mmol/L (3.5-5.1); Sodium 138 mmol/L (136-145); Total Protein 6.8 g/dL (6.4-8.2)
[2021-03-27 16:58] LABS: HBV DNA Detect/Quant, PCR Undetected IU/mL (Undetected)
== END 2021-04-23 23:59 | disposition home or self-care (01) ==
LOC: INF 02:16
PROVIDERS: Nurse Practitioner Family; PCP Nurse Practitioner Family; Visit Provider Internal Medicine Hematology & Oncology
DX: C82.97 Follicular lymphoma, unspecified, spleen (principal); Z45.2 Encounter for adjustment and management of vascular access device
CPT/HCPCS: 36591; 80053; 87517; 83615; 85025

== ENCOUNTER 2021-05-13 01:27 | Outpatient (RCR) | payer MEDICARE, SELFPAY ==
[2021-05-13] MEDS: Normal Saline Flush 10 ML SYR IVP (08:00)
[2021-05-13 09:08] LABS: HCT 34.5 % (36.0-46.0); MCH 30.3 pg (27.0-33.0); MCHC 31.9 % (32.0-36.0); MPV 9.8 fL (8.0-11.0); Nucleated RBC 0 %; Platelet Count 254 10^3/uL (130-400); RBC 3.63 10^6/uL (3.93-5.22); RDW 13.7 % (11.7-14.6); RDW-SD 47.8 fL
[2021-05-13 09:18] LABS: ALT 27 U/L (14-59); AST 31 U/L (15-37); Albumin 3.8 g/dL (3.4-5.0); Alkaline Phosphatase 86 U/L (46-116); Anion Gap 4.5 mmol/L (3-11); BUN 9 mg/dL (7-18); Bilirubin, Total 0.4 mg/dL (0.2-1.0); CO2 32.5 mmol/L (21.0-32.0); CREATININE 0.8 mg/dL (0.55-1.02); Calcium 8.8 mg/dL (8.5-10.1); Chloride 104 mmol/L (98-107); Glucose 104 mg/dL (74-106); LDH 282 U/L (81-234); Sodium 141 mmol/L (136-145); Total Protein 6.6 g/dL (6.4-8.2)
[2021-05-13 09:25] LABS: WBC 1.72 10^3/uL (4.4-10.8)
[2021-05-13 09:58] LABS: Absolute Neutrophil Count 0.79 10^3/uL (1.2-6.7)
[2021-05-13 09:59] LABS: Absolute Eosinophil Count 0.38 10^3/uL (0.0-0.7); Absolute Lymphocyte Count 0.28 10^3/uL (1.2-3.4); Absolute Monocyte Count 0.17 10^3/uL (0.1-0.8); Atypical Lymphocytes % 4; Diff Comment Manual Differential; RBC Morphology Normal
== END 2021-05-24 23:59 | disposition home or self-care (01) ==
LOC: INF 01:27
PROVIDERS: PCP Nurse Practitioner Family; Visit Provider Internal Medicine Hematology & Oncology
DX: C82.97 Follicular lymphoma, unspecified, spleen (principal); Z45.2 Encounter for adjustment and management of vascular access device
CPT/HCPCS: 36591; 80053; 83615; 85025

== ENCOUNTER 2021-05-14 15:10 | Outpatient (REF) | payer MEDICARE, SELFPAY ==
[2021-05-14 13:58] LABS: Source Nasal/Nares
[2021-05-14 17:41] LABS: COVID-19 PCR Negative (Negative)
== END 2021-05-14 15:11 | disposition home or self-care (01) ==
LOC: LBN 15:10
PROVIDERS: PCP Nurse Practitioner Family; Visit Provider Surgery
DX: Z20.822 Contact with and (suspected) exposure to COVID-19 (principal); Z01.818 Encounter for other preprocedural examination
CPT/HCPCS: 87635

== ENCOUNTER 2021-05-15 13:44 | Day surgery (SDC) | payer MEDICARE, SELFPAY ==
--- NOTE | 2021-05-15 13:34 | W.ANESPRE ---
General Info Height: 5 ft 5 in Weight: 56.699 kg Body Mass Index (BMI): 20.7 Surgical Procedure: Operation Date: 05/15/21 14:40 Proposed Procedures Side Surgeon p Excisional Biopsy inguinal Lymph Node Right Rajwinder Valdez MD Meds Allergies and Home Medications Allergies Allergy/AdvReac Type Severity Reaction Status Date / Time lamotrigine Allergy Unknown Unknown Unverified 05/14/21 13:25 milnacipran [From Savella] Allergy Unknown Unknown Unverified 05/14/21 13:25 varenicline Allergy Unknown Other (See Unverified 05/14/21 13:25 Comment) Home Medication Medication Instructions Recorded simvastatin 40 mg PO DAILY 11/23/12 Narcan 4 mg INTRANASAL Q2-3M PRN 05/01/20 duloxetine [Cymbalta] 60 mg PO DAILY 05/01/20 oxycodone-acetaminophen 1 tab PO TID PRN 05/01/20 Current Visit Medications: Current Medications Generic Name Dose Route Start Last Admin Trade Name Freq PRN Reason Stop Dose Admin Ringer's Solution 1,000 mls @ 80 mls/hr 05/15/21 06:00 IV 06/13/21 23:59 INFUSION ABIMAEL IV Miscellaneous Supplies 1 each 05/15/21 06:00 Iv Access IV 06/13/21 23:59 DIRECTED ABIMAEL Sodium Chloride 0 ml 05/15/21 06:00 Normal Saline Flush 10 Ml Syr IV 06/13/21 23:59 PRN PRN Sodium Chloride 0 ml 05/15/21 06:00 Normal Saline 10 Ml Vial IJ 06/13/21 23:59 DIRECTED PRN Sterile Water 0 ml 05/15/21 06:00 Water,Injection,Sterile 10 Ml Vial IJ 06/13/21 23:59 DIRECTED PRN PFSH Medical History Medical History (Updated 05/15/21 @ 14:10 by Arielle Guzman RN) Asthma Bone metastasis Depression pt. denies this Fibromyalgia Hemangioma of liver Hyperlipidemia Hypothyroidism pt states a medication did this to her, she DOES NOT have it.HE Major depression Stage Karley non Hodgkin's lymphoma Vitamin D deficiency Surgical History Surgical History (Updated 05/15/21 @ 14:12 by Arielle Guzman RN) Biopsy, Lymph Node excision ganglion cyst Hx of colonoscopy Hx of eye surgery Left Tobacco Smoking/Tobacco Use Status: Current every day Tobacco Type: cigarettes Alcohol Alcohol Intake: never Substance Use Substance use: Never Substance use type: does not use Vital Signs and Lab Results Lab Results Blood Type / Crossmatch: No Data to Display Complete Blood Count: White Blood Count 1.72 10^3/uL (4.4-10.8) L* 05/13/21 08:08 05/13/21 Red Blood Count 3.63 10^6/uL (3.93-5.22) L 05/13/21 08:08 05/13/21 Hemoglobin 11.0 g/dL (11.2-15.7) L 05/13/21 08:08 05/13/21 Hematocrit 34.5 % (36.0-46.0) L 05/13/21 08:08 05/13/21 Platelet Count 254 10^3/uL (130-400) 05/13/21 08:08 05/13/21 Complete Metabolic Panel: Sodium Level 141 mmol/L (136-145) 05/13/21 08:08 05/13/21 Potassium Level 4.0 mmol/L (3.5-5.1) 05/13/21 08:08 05/13/21 Chloride Level 104 mmol/L (98-107) 05/13/21 08:08 05/13/21 Carbon Dioxide Level 32.5 mmol/L (21.0-32.0) H 05/13/21 08:08 05/13/21 Blood Urea Nitrogen 9 mg/dL (7-18) 05/13/21 08:08 05/13/21 Creatinine 0.8 mg/dL (0.55-1.02) 05/13/21 08:08 05/13/21 Estimated GFR/1.73 m2 >= 60.00 (mL/min/1.73m2) 05/13/21 08:08 05/13/21 Calcium Level 8.8 mg/dL (8.5-10.1) 05/13/21 08:08 05/13/21 Albumin 3.8 g/dL (3.4-5.0) 05/13/21 08:08 05/13/21 Glucose Level 104 mg/dL (74-106) 05/13/21 08:08 05/13/21 Liver Function Panel: Alanine Aminotransferase (ALT/SGPT) 27 U/L (14-59) 05/13/21 08:08 05/13/21 Aspartate Amino Transf (AST/SGOT) 31 U/L (15-37) 05/13/21 08:08 05/13/21 Coagulation Panel: No Data to Display Cardiac Panel: No Data to Display Arterial Blood Gas: No Data to Display Venous Blood Gas: No Data to Display Pancreas Panel: No Data to Display Thyroid Panel: No Data to Display Infectious Disease: Coronavirus (COVID-19)(PCR) Negative (Negative) 05/14/21 13:36 05/14/21 Coronavirus 2019 Source Nasal/Nares 05/14/21 13:36 05/14/21 Blood Cultures: No Data to Display Toxicology Panel: No Data to Display Imaging and Studies Imaging and Studies Stress Test Summary: 2014 for mid sternal wandering pain. normal study, LVEF 66%. Anesthesia Assessment and Plan Anesthesia History Personal History: No History of Anesthesia Complications Family History: No Family History of Anesthesia Complications Exercise Tolerance Exercise Tolerance: Metabolic Equivalents>4 ASA Classification ASA Score: ASA 3 Emergency Case?: No NPO Status NPO Status: NPO Clears >2 hours, Solids >8 hours Anesthesia Plan Resuscitation Status: Full Code Anesthesia Technique: General Anesthesia Airway Planned: Natural Airway Monitors Used: Standard Monitors Preoperative Comments:: Case cancelled, all information is based only off of chart review. 65 yo female for lymph node bx for ? of advancing lymphoma. Sig PMHx: lymphoma (rituximab), hep b, asthma/copd (advair), fibromyalgia, hypothyroid, smoker, Plan: MAC
[2021-05-15 13:57] VITALS: BP 111/72; PULSE 60; RESP 16; TEMP 36.3; O2SAT 98
--- NOTE | 2021-05-15 14:52 | NUR.NOTE ---
Nursing Note: Procedured cx today d/t power issues, per MD and Pt not wanting to wait. Pt will return on Tuesday for procedure.HE
== END 2021-05-15 13:45 | disposition home or self-care (01) ==
LOC: SUR 13:45
PROVIDERS: PCP Nurse Practitioner Family; Visit Provider Surgery
DX: Z53.8 Procedure and treatment not carried out for other reasons (principal)

== ENCOUNTER 2021-05-18 08:53 | Day surgery (SDC) | payer MEDICARE, SELFPAY ==
--- NOTE | 2021-05-18 06:48 | HPE_ITS ---
Date of service: 05/18/21 Time of Service: 09:35 Assessment and Plan Assessment and plan (1) Lymphoma: Status: Acute Assessment and plan: Mrs Diop is a pleasant 65 year old with a history of Non-Hodgkins lymphoma s/p treatment. She has recurrence on maintenance treatment. I have been asked to do an excisional biopsy of a right inguinal lymphnode. Risks, benefits and complications have been reviewed with the patient. Complications include but are not limited to bleeding, infection, pain, injury to nerves and adverse reaction to medications. Questions were entertained and answered to her satisfaction and she wished to proceed. No guarantees were given or implied. Proceed with right inguinal lymph node bx Qualifiers: Follicular lymphoma grade: grade II Lymphoma site: multiple regions Lymphoma type: non-Hodgkin Non-Hodgkin lymphoma type: follicular Qualified Code(s): C82.18 - Follicular lymphoma grade II, lymph nodes of multiple sites History of Present Illness Narrative: Ms Diop is a pleasant 65 year old female who was diagnosed with follicular lymphoma in 2012. She underwent treatment and in October was in remiss ion on maintenance medication. 6 months later she had recurrence of her lymphadenopathy. Dr. Peraza has requested a lymphnode bx of the right inguinal area to rule out transformation. Review of Systems Constitutional Constitutional: Reports fatigue, Denies fever(s), Reports night sweats and Denies weight loss Cardiovascular Cardiovascular: Denies chest pain, Denies chest pain at rest, Denies irregular heart rhythm, Denies dyspnea and Denies dyspnea on exertion Respiratory Respiratory: Denies cough, Denies dyspnea and Denies dyspnea on exertion Gastrointestinal Gastrointestinal: Reports system reviewed and no additional complaints, except as documented Genitourinary Genitourinary: Denies dysuria, Denies urinary incontinence and Denies urinary urgency Endocrine Endocrine: Reports system reviewed and no additional complaints, except as documented and Reports fatigue Hematologic/Lymphatic Hematologic/Lymphatic: Reports system reviewed and no additional complaints, except as documented [facility] Medical History Asthma Bone metastasis Cigarette nicotine dependence Fibromyalgia Hemangioma of liver Hyperlipidemia Hypothyroidism pt states a medication did this to her, she DOES NOT have it.HE Lymphoma Major depression Stage Karley non Hodgkin's lymphoma Viral hepatitis B acute Vitamin D deficiency Surgical History Biopsy, Lymph Node excision ganglion cyst Hx of colonoscopy Hx of eye surgery Left Social History Smoking/Tobacco Use Status: Current every day Tobacco Type: cigarettes Years smoked: 59 Smoking risk assessment performed?: Yes Alcohol Intake: never Drug use: Never Substance use type: does not use Do you feel safe at home: Yes Do you feel safe in your relationship?: Yes Meds Allergies and Home Medications Allergies Allergy/AdvReac Type Severity Reaction Status Date / Time lamotrigine Allergy Unknown Unknown Unverified 05/18/21 09:15 milnacipran [From Savella] Allergy Unknown Unknown Unverified 05/18/21 09:15 varenicline Allergy Unknown Other (See Unverified 05/18/21 09:15 Comment) Home Medications Medication Instructions Recorded Confirmed Type simvastatin 40 mg PO DAILY 11/23/12 05/18/21 History Narcan 4 mg INTRANASAL Q2-3M PRN 05/01/20 05/18/21 History duloxetine [Cymbalta] 60 mg PO DAILY 05/01/20 05/18/21 History oxycodone-acetaminophen 1 tab PO TID PRN 05/01/20 05/18/21 History Exam Const General: healthy appearing and comfortable Resp Effort & Inspection: normal respiratory effort Auscultation: clear to auscultation bilaterally Cardio Rate: regular rate Rhythm: regular rhythm Heart Sounds: no click, no gallops and no murmurs
--- NOTE | 2021-05-18 07:02 | W.PM.OP ---
Date of service: 05/18/21 Time of Service: 09:30 Operative Note Operative Note DATE OF PROCEDURE: 05/18/21 PRE-OP DIAGNOSIS: Lymphoma POST-OP DIAGNOSIS: same PROCEDURE: Right inguinal Lymphnode bx SURGEON: Rajwinder Valdez ANESTHESIA TYPE: Local By Surgeon and General:No Airway Refer to Anesthesia Record PATHOLOGY: other (right inguinal lymph node) COMPLICATIONS: None Patient was transported to: same day Patient's condition: stable Indications: Mrs Diop is a pleasant 65 year old with a history of Non-Hodgkins lymphoma s/p treatment. She has recurrence on maintenance treatment. I have been asked to do an excisional biopsy of a right inguinal lymphnode. Risks, benefits and complications have been reviewed with the patient. Complications include but are not limited to bleeding, infection, pain, injury to nerves and adverse reaction to medications. Questions were entertained and answered to her satisfaction and she wished to proceed. No guarantees were given or implied. Proceed with right inguinal lymph node bx Procedure Description: After informed consent was obtained, and the lymph node to be biopsied was confirmed with Dr. Serrano, the right groin was marked and same-day surgery. The patient was then taken back to the procedure room and placed in a supine position. Monitors were applied and a timeout was done. The patient's name, date of , procedure to be done, site of procedure, allergies to medications and any metal in her body were reviewed. Fire risk was assessed. The patient was sedated. Next the right groin was prepped and draped in a sterile surgical fashion. Exparel mixed with quarter percent bupivacaine was injected into the dermis and subcutaneous tissue over the palpable lymph node. A 3 cm incision was made with a 15 blade. Dissection was done with cautery down through the subcutaneous tissue and the fascia. A self-retaining tractor was placed. I then palpated for the lymph node and once I was able to palpated dissection was done with a hemostat and cautery all the way down to the lymph node. Once the lymph node was identified the blood supply was cauterized. The lymph node was removed and placed into a sterile container to be taken to the lab. The wound was irrigated no bleeding was identified. The subcutaneous tissue was reapproximated with interrupted 3-0 Vicryl. The dermis was closed with a subcuticular 4-0 Vicryl stitch. The skin was cleaned and dried. Skin affix was applied. Sponge instrument needle counts were correct at the end of the case. The patient was woken up from her deep sedation and taken to same-day surgery in stable condition. There were no immediate complications.
--- NOTE | 2021-05-18 07:03 | PDOC.DSDIS_ITS ---
Discharge Plan Disposition Patient Disposition: HOME Condition: Good Discharge Details Reason For Visit: lymphoma Attending Provider: Rajwinder Valdez Primary Care Provider: Malachi Germain Home Meds and New Rx's Prescriptions: Continued simvastatin 40 MG tablet 40 mg PO DAILY RF: 0 oxycodone-acetaminophen 10-325 mg Tablet 1 tab PO TID PRNRF: 0 duloxetine [Cymbalta] 60 mg Capsule,Delayed Release(Dr/Ec) 60 mg PO DAILY RF: 0 Narcan 4 mg/actuation [place],Non-Aerosol 4 mg INTRANASAL Q2-3M PRNRF: 0 Discharge Instructions Additional Instructions: Activity at Home after surgery: 1. As tolerated Diet, Nutrition, & wound healin. As tolerated Pain Medications: 1. Tylenol 650mg every 6 hours as needed and Ibuprofen 600 mg every 6 hours as needed. You may alternate between the 2 medications every 3 hours 2. If a narcotic has been prescribed take as directed only for breakthrough pain For Constipation: 1. Take Milk of Magnesia or MiraLax as needed for constipation Other: 1. You may shower daily. Do not scrub the incisions 2. Do not soak the incisions for 1 week 3. You may alternate ice and heat as needed for pain and swelling Wound Care: 1. Keep the incisions clean and dry Please call our office if you develop: 1. Fevers >101.5 2. Nausea or Vomiting 3. Worsening pain 4. Redness and thick discharge from the wounds If after hours please call the Hospital at and ask to speak to the on-call surgeon Activity:: Activity as Tolerated Diet:: As Tolerated Discharge Orders Discharge Orders: Discharge Order (Routine); Ordered 05/18/21 Ordered By: Rajwinder Valdez DS: Diagnosis Discharge Diagnosis (1) Lymphoma: Status: Acute
[2021-05-18 09:20] VITALS: BP 111/93; PULSE 72; RESP 18; TEMP 36.4; O2SAT 97
--- NOTE | 2021-05-18 09:32 | W.ANESPRE ---
General Info Date of Service Date Performed: 05/18/21 Height: 5 ft 5 in Weight: 55.3 kg Body Mass Index (BMI): 20.2 Surgical Procedure: Operation Date: 05/18/21 09:25 Proposed Procedures Side Surgeon p Excisional Biopsy Lymph Node right inguinal Right Rajwinder Valdez MD Meds Allergies and Home Medications Allergies Allergy/AdvReac Type Severity Reaction Status Date / Time lamotrigine Allergy Unknown Unknown Unverified 05/18/21 09:15 milnacipran [From Savella] Allergy Unknown Unknown Unverified 05/18/21 09:15 varenicline Allergy Unknown Other (See Unverified 05/18/21 09:15 Comment) Home Medication Medication Instructions Recorded simvastatin 40 mg PO DAILY 11/23/12 Narcan 4 mg INTRANASAL Q2-3M PRN 05/01/20 duloxetine [Cymbalta] 60 mg PO DAILY 05/01/20 oxycodone-acetaminophen 1 tab PO TID PRN 05/01/20 Current Visit Medications: Current Medications Generic Name Dose Route Start Last Admin Trade Name Freq PRN Reason Stop Dose Admin Ondansetron HCl 4 mg/ Sodium 52 mls @ 200 mls/hr 05/18/21 07:04 Chloride IVPB Q6H PRN PRN Oxycodone HCl 5 mg 05/18/21 07:04 Oxycodone 5 Mg Tab PO Q3H PRN PRN Pain PFSH Active Problems Active Problems: Problem Status Onset Code Lymphoma C85.90 Medical History Medical History Asthma Bone metastasis Cigarette nicotine dependence Fibromyalgia Hemangioma of liver Hyperlipidemia Hypothyroidism pt states a medication did this to her, she DOES NOT have it.HE Lymphoma Major depression Stage Karley non Hodgkin's lymphoma Viral hepatitis B acute Vitamin D deficiency Surgical History Surgical History Biopsy, Lymph Node excision ganglion cyst Hx of colonoscopy Hx of eye surgery Left Tobacco Smoking/Tobacco Use Status: Current every day Tobacco Type: cigarettes Years smoked: 59 Alcohol Alcohol Intake: never Substance Use Substance use: Never Substance use type: does not use Vital Signs and Lab Results Vital Signs Most Recent Vital Signs in EMR: Most Recent Vital Signs Temp Pulse Resp BP Pulse Ox 36.4 C L 72 18 111/93 H 97 05/18/21 09:20 05/18/21 09:20 05/18/21 09:20 05/18/21 09:20 05/18/21 09:20 Lab Results Blood Type / Crossmatch: No Data to Display Complete Blood Count: White Blood Count 1.72 10^3/uL (4.4-10.8) L* 05/13/21 08:08 05/13/21 Red Blood Count 3.63 10^6/uL (3.93-5.22) L 05/13/21 08:08 05/13/21 Hemoglobin 11.0 g/dL (11.2-15.7) L 05/13/21 08:08 05/13/21 Hematocrit 34.5 % (36.0-46.0) L 05/13/21 08:08 05/13/21 Platelet Count 254 10^3/uL (130-400) 05/13/21 08:08 05/13/21 Complete Metabolic Panel: Sodium Level 141 mmol/L (136-145) 05/13/21 08:08 05/13/21 Potassium Level 4.0 mmol/L (3.5-5.1) 05/13/21 08:08 05/13/21 Chloride Level 104 mmol/L (98-107) 05/13/21 08:08 05/13/21 Carbon Dioxide Level 32.5 mmol/L (21.0-32.0) H 05/13/21 08:08 05/13/21 Blood Urea Nitrogen 9 mg/dL (7-18) 05/13/21 08:08 05/13/21 Creatinine 0.8 mg/dL (0.55-1.02) 05/13/21 08:08 05/13/21 Estimated GFR/1.73 m2 >= 60.00 (mL/min/1.73m2) 05/13/21 08:08 05/13/21 Calcium Level 8.8 mg/dL (8.5-10.1) 05/13/21 08:08 05/13/21 Albumin 3.8 g/dL (3.4-5.0) 05/13/21 08:08 05/13/21 Glucose Level 104 mg/dL (74-106) 05/13/21 08:08 05/13/21 Liver Function Panel: Alanine Aminotransferase (ALT/SGPT) 27 U/L (14-59) 05/13/21 08:08 05/13/21 Aspartate Amino Transf (AST/SGOT) 31 U/L (15-37) 05/13/21 08:08 05/13/21 Coagulation Panel: No Data to Display Cardiac Panel: No Data to Display Arterial Blood Gas: No Data to Display Venous Blood Gas: No Data to Display Pancreas Panel: No Data to Display Thyroid Panel: No Data to Display Infectious Disease: Coronavirus (COVID-19)(PCR) Negative (Negative) 05/14/21 13:36 05/14/21 Coronavirus 2019 Source Nasal/Nares 05/14/21 13:36 05/14/21 Blood Cultures: No Data to Display Toxicology Panel: No Data to Display Anesthesia Assessment and Plan Anesthesia History Personal History: No History of Anesthesia Complications Family History: No Family History of Anesthesia Complications Exercise Tolerance Exercise Tolerance: Metabolic Equivalents>4 Pertinent Negatives Pertinent Negatives: No Symptoms of GERD, No Major Cardiovascular Symptoms or Complaints, No Major Pulmonary Symptoms or Complaints and No History of CVA/TIA Cardiac & Pulmonary Exam Cardiac Exam: Normal S1/S2 Heart Sounds Pulmonary Exam: Clear Bilateral Breath Sounds Airway Exam Known Difficult Airway: No Mallampati Class: 1 Mouth Opening: Normal (> 3cm) Thyromental Distance: Greater than 3 cm Neck Range of Motion: Full ROM Neck Circumference: Normal Teeth Condition: Removable Dentures/Plates Upper, Removable Dentures/Plates Lower and Edentulous ASA Classification ASA Score: ASA 3 Emergency Case?: No NPO Status NPO Status: NPO Clears >2 hours, Solids >8 hours Anesthesia Plan Resuscitation Status: Full Code Anesthesia Technique: General Anesthesia Airway Planned: Natural Airway Monitors Used: Standard Monitors
[2021-05-18] MEDS: Lactated Ringers 1,000 ML 80 ML IV (09:36)
[2021-05-18 09:38] VITALS: BMI 20.2
--- NOTE | 2021-05-18 09:55 | LYM_PTH ---
PATIENT: Patrick Diop LOC: [facility] U#:[id number] AGE/SX: 65/F ROOM: RE05/18/[address]: Rajwinder Valdez MD : 1955 BED: DIS: 05/18/2021 SPEC #: [id number] RECD: 05/18/21 12:53 STATUS: CRYSTAL REQ #: [id number] BUNNY: 05/18/21 09:[address]: Rajwinder Valdez DEPT: Surgical Specimen RECD BY: Mela Worley ENTERED: 05/18/21 12:56 SP TYPE: LYM OTHR DR: Malachi Germain Tissues: 1 - LYMPH NODE BIOPSY 2 - FLOW CYTOMETRY NODE/TISSUE Procedures: GROSS AND MICRO LEVEL 4 IMMUNOPEROXIDASE STAIN MIB-1 IHC Semi Quantative % FLOW CYTOMETRY LYMPHOMA PNL Comments: [id number] (FLOW CYTOMETRY - [id number])
[2021-05-18] MEDS: Bupivacaine LIPOSOME/PF 133 MG/10 ML VIAL IJ (10:01)
[2021-05-18] MEDS: Bupivacaine 0.5% Pres-Free 30 ML VIAL (10:01)
[2021-05-18 10:08] VITALS: BP 103/73; PULSE 68; RESP 18; TEMP 36.1; O2SAT 99
[2021-05-18 10:33] VITALS: BP 125/71; PULSE 69; RESP 18; TEMP 36; O2SAT 99
--- NOTE | 2021-05-19 07:19 | W.ANESPOSTOP ---
Postoperative Evaluation Date, Time and Location Date Performed: 05/18/21 Time Performed: 10:36 Patient Location: Day Surgery Unit Vital Signs Most Recent Imported Vital Signs: Most Recent Vital Signs Temp Pulse Resp BP Pulse Ox 36 C L 69 18 125/71 99 05/18/21 10:33 05/18/21 10:33 05/18/21 10:33 05/18/21 10:33 05/18/21 10:33 Pain Score Most Recent Pain Score: Most Recent Pain Score Pain Level 0 05/18/21 10:33 Assessment Mental Status: Awake (Alert & Oriented to Patient Baseline) Airway and Respiratory Function: Patent airway with normal (patient baseline) respiratory exam Cardiovascular Function: Hemodynamically Stable Hydration Status: Adequately Hydrated Nausea & Vomiting: No Nausea or Vomiting Pain: Pt. Denies Any Pain Peripheral Nerve Block: Patient did not receive a nerve block
== END 2021-05-18 10:50 | disposition home or self-care (01) ==
LOC: SUR 08:55
PROVIDERS: PCP Nurse Practitioner Family; Visit Provider Surgery
PROC: (CPT 38500; principal; 2021-05-18 09:15)
DX: C82.18 Follicular lymphoma grade II, lymph nodes of multiple sites (principal); E55.9 Vitamin D deficiency, unspecified; J45.909 Unspecified asthma, uncomplicated; F17.210 Nicotine dependence, cigarettes, uncomplicated
CPT/HCPCS: 38500; 88305; 88360; 88184; 88185; 88361; J2001; J2405

== ENCOUNTER → 2021-06-16 00:58 | Outpatient (CLI) | payer MEDICARE, SELFPAY ==
--- NOTE | 2021-06-16 | DI.US_ITS ---
APPROVED REPORT EXAM: Comprehensive 2D, Doppler, and color-flow Echocardiogram Patient Location: Out-Patient [facility] Operator: Jeni Torre RDCS (AE) Indications: Pre chemo, Folicular lymphoma Other Information Study Quality: Adequate Conclusion Normal left ventricular chamber size and wall thickness. Estimated ejection fraction is 55 to 60%. There are no segmental wall motion abnormalities Normal right ventricular size and systolic function Both atria are normal in size Aortic valve is sclerotic and probably trileaflet without stenosis or regurgitation Mildly thickened mitral leaflets with trace to mild regurgitation Normal tricuspid valve with trace regurgitation. Estimated right ventricular systolic pressure is 32 mmHg Normal pulmonic valve with trace regurgitation Mildly dilated ascending aorta measuring 3.58 centimeters Wall motion Left Ventricle The left ventricle is normal size. The left ventricular systolic function is normal. The left ventric ular ejection fraction is within the normal range. There is normal left ventricular wall thickness. T here is normal LV segmental wall motion. There is no ventricular septal defect visualized. LVEF is 57 %. Right Ventricle The right ventricle is normal size. Right ventricle is not well visualized. Right ventricle is grossl y normal in size. The right ventricular systolic function is normal. The RVSP is 32.1 mmHg. Atria The left atrium size is normal. The right atrium size is normal. The interatrial septum is intact wit h no evidence for an atrial septal defect. Aortic Valve The Aortic valve is sclerotic. Aortic valve is probably trileaflet. There is no aortic valvular steno sis. No aortic regurgitation is present. Mitral Valve Mitral valve leaflets are mildly thickened. No evidence of mitral valve stenosis. Trace to mild andi l regurgitation. Tricuspid Valve The tricuspid valve is normal in structure. There is no tricuspid valve stenosis. Trace tricuspid reg urgitation. Pulmonic Valve The pulmonary valve is normal in structure. There is no pulmonic valvular stenosis. Trace pulmonic re gurgitation. Great Vessels The aortic root is normal in size. The ascending aorta is mildly dilated.3.58 cm Aortic arch is not w ell visualized. IVC is normal in size and collapses >50% with inspiration. Pericardium There is no pericardial effusion. 2D Dimensions IVSD d PLAX 0.75 cm F: 0.6-1.0 LV Vol A2C d MOD 94.6 mL LVPW d PLAX 0.77 cm F: 0.6 - 1.0 LV Vol A4C d MOD 103.4 mL LVID d PLAX 4.38 cm F: 3.8 - 5.2 LA vol/ BSA A2C s A-L 27.0 mL/m2 LVDs 3.00 cm F: 2.2 - 3.5 LA vol/ BSA A4C s A-L 20.2 mL/m2 Ao Root d 2.59 cm F: 2.7 - 3.3 LA Vol/ BSA Biplane s A-L 23.6 mL/m2 RA Area A4C 8.43 cm2 LA Area A4C s MOD 13.58 cm2 RA Vol/ BSA A4C s A-L 11.4 mL/m2 LA Area A2C s MOD 15.59 cm2 Ao Asc Diam d 3.58 cm F: 2.3 - 3.1 LV EF A4C MOD 59.1 % LV EF Teichholz 59.1 % LV EF A2C MOD 59.2 % LVEF (Peralta's) 58.82 % F: 54 - 74 LV EF Biplane MOD 58.8 % LV Volume 80.45 mL F: 46 - 106 SV 58.13 mL LV Volume Index 50.59 mL/m2 F: 29 - 61 SV Index 36.51 mL/m2 LV Vol Biplane MOD 98.8 mL FS 31.10 % M-Mode TAPSE 1.87 cm (M/F) >1.7 LV Diastology MV E' medial 0.067 (>0.07 m/s) E/A Ratio 0.8 LV E/e MED 7.75 (<14) MV E Vmax 0.52 (0.4-1.3 m/s) MV E' lateral 0.086 (>0.1 m/s) MV A Vmax 0.65 (0.4-1.3 m/s) LV E/e LAT 6.00 (<14) MV E/A Ratio 0.76 MV E/E' medial 7.79 MV E/E' lateral 6.02 Aortic Valve LVOT Area 2.78 cm2 AoV Area Vmax 1.97 cm2 LVOT Vmax 0.90 m/s AoV Area/ BSA (Vmax) 1.24 cm2/m2 LVOT Mean Sky. 0.59 m/s DENG Mean Sky. 1.92 cm2 LVOT Peak Grad 3.2 mmHg DENG Mean Sky. Index 1.21 cm2/m2 LVOT Mean Grad 1.6 mmHg LVOT VTI 0.167 m LVOT Diam s 1.85 cm AoV Vmax 1.27 m/s Velocity Ratio 0.70 AoV Mean Sky. 0.85 m/s AoV Peak Grad 6.4 mmHg LVOT SV 46.58 mL AoV Mean Grad 3.2 mmHg AoV VTI 0.245 m AoV Area VTI 1.90 cm2 AoV Area/ BSA (VTI) 1.19 cm/m2 Mitral Valve MV DT 184 (160-240 msec) MR Vmax 4.45 m/s MV PHT 53 msec MR VTI 1.744 m MV Area PHT 4.11 cm2 MR Peak Grad 79.2 mmHg MV VTI 0.281 m MR Mean Grad 63.5 mmHg MV Area VTI 1.66 (4.0-6.0 cm2) Pulmonary Valve PV Vmax 0.92 (0.5-1.5 m/s) RVOT Peak Gr. 1.40 mmHg PV Peak Grad 3.4 mmHg RVOT Mean Gr. 0.80 mmHg PV Mean Grad 1.5 mmHg RVOT VTI 0.148 m PV VTI 0.194 m RVOT Vmax 0.59 m/s Tricuspid Valve TR Peak Grad 29.1 mmHg TR Vmax 2.70 m/s RA Pressure 3.00 mmHg RVSP (TR) 32.1 mmHg
== END ==
PROVIDERS: PCP Nurse Practitioner Family; Visit Provider Internal Medicine Hematology & Oncology
DX: Z01.810 Encounter for preprocedural cardiovascular examination (principal); C82.97 Follicular lymphoma, unspecified, spleen; I34.0 Nonrheumatic mitral (valve) insufficiency; I77.810 Thoracic aortic ectasia
CPT/HCPCS: 93306

== ENCOUNTER 2021-06-17 02:13 | Outpatient (RCR) | payer MEDICARE, SELFPAY ==
[2021-06-17] MEDS: Normal Saline Flush 10 ML SYR IVP (09:37)
[2021-06-17] MEDS: Heparin 500 UNITS/5 ML SYRINGE IV (09:37)
[2021-06-17 09:50] LABS: Abs Immature Grans 0.05 10^3/uL (0.0-0.06); Absolute Basophil Count 0.03 10^3/uL (0.0-0.2); Absolute Eosinophil Count 0.17 10^3/uL (0.0-0.7); Absolute Lymphocyte Count 0.33 10^3/uL (1.2-3.4); Absolute Monocyte Count 0.32 10^3/uL (0.1-0.8); Absolute Neutrophil Count 1.21 10^3/uL (1.2-6.7); Basophils % 1.4; Eosinophils % 8.1; HCT 35.6 % (36.0-46.0); HGB 11.6 g/dL (11.2-15.7); Immature Grans % 2.4; Lymphocytes % 15.6; MCH 31.1 pg (27.0-33.0); MCHC 32.6 % (32.0-36.0); MCV 95.4 fL (80-95); MPV 9.1 fL (8.0-11.0); Monocytes % 15.2; Neutrophils % 57.3; Nucleated RBC 0 %; Platelet Count 238 10^3/uL (130-400); RBC 3.73 10^6/uL (3.93-5.22); RDW 13.2 % (11.7-14.6); RDW-SD 46.7 fL; WBC 2.11 10^3/uL (4.4-10.8)
[2021-06-17 10:04] LABS: ALT 18 U/L (14-59); AST 27 U/L (15-37); Albumin 4.1 g/dL (3.4-5.0); Alkaline Phosphatase 71 U/L (46-116); Anion Gap 7.4 mmol/L (3-11); BUN 14 mg/dL (7-18); Bilirubin, Total 0.5 mg/dL (0.2-1.0); CO2 30.6 mmol/L (21.0-32.0); CREATININE 0.8 mg/dL (0.55-1.02); Chloride 100 mmol/L (98-107); Glucose 104 mg/dL (74-106); LDH 369 U/L (81-234); Potassium 3.8 mmol/L (3.5-5.1); Sodium 138 mmol/L (136-145)
[2021-06-20 22:27] LABS: HBV DNA Detect/Quant, PCR Undetected IU/mL (Undetected)
== END 2021-06-23 23:59 | disposition home or self-care (01) ==
LOC: INF 02:13
PROVIDERS: PCP Nurse Practitioner Family; Visit Provider Internal Medicine Hematology & Oncology
DX: C82.97 Follicular lymphoma, unspecified, spleen (principal); Z45.2 Encounter for adjustment and management of vascular access device
CPT/HCPCS: 36591; 80053; 87517; 83615; 85025

== ENCOUNTER 2021-07-15 02:10 | Outpatient (RCR) | payer MEDICARE, SELFPAY ==
[2021-07-01] MEDS: Heparin 500 UNITS/5 ML SYRINGE IV (10:18)
[2021-07-01] MEDS: Normal Saline Flush 10 ML SYR IVP (10:18)
[2021-07-01 10:30] LABS: HCT 32.7 % (36.0-46.0); HGB 10.4 g/dL (11.2-15.7); MCH 30.5 pg (27.0-33.0); MCHC 31.8 % (32.0-36.0); MCV 95.9 fL (80-95); MPV 10.6 fL (8.0-11.0); Platelet Count 106 10^3/uL (130-400); RBC 3.41 10^6/uL (3.93-5.22); RDW 12.8 % (11.7-14.6); RDW-SD 45.5 fL; WBC 3.73 10^3/uL (4.4-10.8)
[2021-07-01 10:48] LABS: ALT 25 U/L (14-59); AST 22 U/L (15-37); Absolute Eosinophil Count 0.34 10^3/uL (0.0-0.7); Absolute Lymphocyte Count 0.56 10^3/uL (1.2-3.4); Absolute Monocyte Count 0.78 10^3/uL (0.1-0.8); Absolute Neutrophil Count 2.05 10^3/uL (1.2-6.7); Albumin 3.6 g/dL (3.4-5.0); Alkaline Phosphatase 83 U/L (46-116); Anion Gap 6.3 mmol/L (3-11); BUN 14 mg/dL (7-18); Bands % 5; Bilirubin, Total 0.3 mg/dL (0.2-1.0); CO2 29.7 mmol/L (21.0-32.0); CREATININE 0.7 mg/dL (0.55-1.02); Calcium 8.6 mg/dL (8.5-10.1); Chloride 102 mmol/L (98-107); Glucose 95 mg/dL (74-106); LDH 327 U/L (81-234); Potassium 3.7 mmol/L (3.5-5.1); Sodium 138 mmol/L (136-145); Total Protein 6.3 g/dL (6.4-8.2)
[2021-07-01 10:49] LABS: Diff Comment Manual Differential; Hypochromasia 1+; Nucleated RBC 2 %; Ovalocytes 2+; Poikilocytes 1+
[2021-07-15] MEDS: Normal Saline Flush 10 ML SYR IVP (08:15)
[2021-07-15 08:22] LABS: Abs Immature Grans 0.08 10^3/uL (0.0-0.06); Absolute Basophil Count 0.05 10^3/uL (0.0-0.2); Absolute Eosinophil Count 0.07 10^3/uL (0.0-0.7); Absolute Lymphocyte Count 0.47 10^3/uL (1.2-3.4); Absolute Monocyte Count 0.71 10^3/uL (0.1-0.8); Absolute Neutrophil Count 3.38 10^3/uL (1.2-6.7); Basophils % 1.1; Eosinophils % 1.5; HCT 35.9 % (36.0-46.0); HGB 11.4 g/dL (11.2-15.7); Immature Grans % 1.7; Lymphocytes % 9.9; MCH 30.6 pg (27.0-33.0); MCHC 31.8 % (32.0-36.0); MCV 96.2 fL (80-95); MPV 9.1 fL (8.0-11.0); Monocytes % 14.9; Neutrophils % 70.9; Nucleated RBC 0 %; Platelet Count 431 10^3/uL (130-400); RBC 3.73 10^6/uL (3.93-5.22); RDW 13.9 % (11.7-14.6); RDW-SD 49.1 fL; WBC 4.76 10^3/uL (4.4-10.8)
[2021-07-15 08:36] LABS: ALT 19 U/L (14-59); AST 18 U/L (15-37); Albumin 3.8 g/dL (3.4-5.0); Alkaline Phosphatase 76 U/L (46-116); BUN 15 mg/dL (7-18); Bilirubin, Total 0.3 mg/dL (0.2-1.0); CREATININE 0.7 mg/dL (0.55-1.02); Calcium 8.8 mg/dL (8.5-10.1); Chloride 105 mmol/L (98-107); Glucose 82 mg/dL (74-106); LDH 298 U/L (81-234); Potassium 4.1 mmol/L (3.5-5.1); Sodium 140 mmol/L (136-145); Total Protein 6.8 g/dL (6.4-8.2)
== END 2021-07-24 23:59 | disposition home or self-care (01) ==
LOC: INF 02:10
PROVIDERS: PCP Nurse Practitioner Family; Visit Provider Internal Medicine Hematology & Oncology
DX: C82.97 Follicular lymphoma, unspecified, spleen (principal); Z45.2 Encounter for adjustment and management of vascular access device
CPT/HCPCS: 36591; 80053; 83615; 85025

== ENCOUNTER 2021-08-19 01:03 | Outpatient (RCR) | payer MEDICARE, SELFPAY ==
[2021-08-19 08:31] LABS: Abs Immature Grans 0.02 10^3/uL (0.0-0.06); Absolute Basophil Count 0.04 10^3/uL (0.0-0.2); Absolute Eosinophil Count 0.22 10^3/uL (0.0-0.7); Basophils % 1.3; Eosinophils % 7.1; HCT 33.7 % (36.0-46.0); HGB 10.6 g/dL (11.2-15.7); Immature Grans % 0.6; Lymphocytes % 16.2; MCH 30.5 pg (27.0-33.0); MCHC 31.5 % (32.0-36.0); MCV 96.8 fL (80-95); MPV 9.5 fL (8.0-11.0); Monocytes % 16.2; Neutrophils % 58.6; Nucleated RBC 0 %; Platelet Count 268 10^3/uL (130-400); RBC 3.48 10^6/uL (3.93-5.22); RDW 14.6 % (11.7-14.6); RDW-SD 52.7 fL; WBC 3.08 10^3/uL (4.4-10.8)
[2021-08-19] MEDS: Normal Saline Flush 10 ML SYR IVP (08:32)
[2021-08-19 08:48] LABS: ALT 21 U/L (14-59); AST 25 U/L (15-37); Albumin 3.6 g/dL (3.4-5.0); Alkaline Phosphatase 72 U/L (46-116); Anion Gap 6.7 mmol/L (3-11); BUN 17 mg/dL (7-18); Bilirubin, Total 0.3 mg/dL (0.2-1.0); CO2 29.3 mmol/L (21.0-32.0); CREATININE 0.6 mg/dL (0.55-1.02); Calcium 8.5 mg/dL (8.5-10.1); Chloride 104 mmol/L (98-107); Glucose 91 mg/dL (74-106); LDH 353 U/L (81-234); Potassium 4.3 mmol/L (3.5-5.1); Sodium 140 mmol/L (136-145); Total Protein 6.4 g/dL (6.4-8.2)
[2021-08-20 22:48] LABS: HBV DNA Detect/Quant, PCR Undetected IU/mL (Undetected)
== END 2021-08-24 23:59 | disposition home or self-care (01) ==
LOC: INF 01:03
PROVIDERS: PCP Nurse Practitioner Family; Visit Provider Internal Medicine Hematology & Oncology
DX: C82.97 Follicular lymphoma, unspecified, spleen (principal); Z45.2 Encounter for adjustment and management of vascular access device
CPT/HCPCS: 36415; 36591; 80053; 87517; 83615; 85025

== ENCOUNTER 2021-09-09 02:08 | Outpatient (RCR) | payer MEDICARE, SELFPAY ==
[2021-09-09] MEDS: Normal Saline Flush 10 ML SYR IVP (08:39)
[2021-09-09 08:50] LABS: HCT 34.6 % (36.0-46.0); HGB 11.3 g/dL (11.2-15.7); MCH 31.5 pg (27.0-33.0); MCHC 32.7 % (32.0-36.0); MCV 96.4 fL (80-95); MPV 8.8 fL (8.0-11.0); Nucleated RBC 0 %; Platelet Count 422 10^3/uL (130-400); RBC 3.59 10^6/uL (3.93-5.22); RDW 14.9 % (11.7-14.6); RDW-SD 52.7 fL; WBC 4.03 10^3/uL (4.4-10.8)
[2021-09-09 09:06] LABS: Absolute Lymphocyte Count 0.44 10^3/uL (1.2-3.4); Absolute Monocyte Count 0.56 10^3/uL (0.1-0.8); Absolute Neutrophil Count 2.82 10^3/uL (1.2-6.7); Atypical Lymphocytes % 5
[2021-09-09 09:07] LABS: ALT 20 U/L (14-59); AST 23 U/L (15-37); Albumin 4.1 g/dL (3.4-5.0); Alkaline Phosphatase 88 U/L (46-116); Anion Gap 7.4 mmol/L (3-11); BUN 7 mg/dL (7-18); Bilirubin, Total 0.4 mg/dL (0.2-1.0); CO2 27.6 mmol/L (21.0-32.0); CREATININE 0.7 mg/dL (0.55-1.02); Calcium 8.9 mg/dL (8.5-10.1); Chloride 104 mmol/L (98-107); Diff Comment Manual Differential; Glucose 93 mg/dL (74-106); LDH 391 U/L (81-234); Potassium 4.1 mmol/L (3.5-5.1); RBC Morphology Normal; Sodium 139 mmol/L (136-145)
[2021-09-10 21:31] LABS: HBV DNA Detect/Quant, PCR Undetected IU/mL (Undetected)
== END 2021-09-21 23:59 | disposition home or self-care (01) ==
LOC: INF 02:08
PROVIDERS: PCP Nurse Practitioner Family; Visit Provider Internal Medicine Hematology & Oncology
DX: C82.97 Follicular lymphoma, unspecified, spleen (principal); Z45.2 Encounter for adjustment and management of vascular access device
CPT/HCPCS: 36591; 80053; 87517; 83615; 85025

== ENCOUNTER 2021-10-21 02:40 | Outpatient (RCR) | payer MEDICARE, SELFPAY ==
[2021-09-30] MEDS: Normal Saline Flush 10 ML SYR IVP (14:32)
[2021-09-30 14:43] LABS: Abs Immature Grans 0.09 10^3/uL (0.0-0.06); Absolute Basophil Count 0.02 10^3/uL (0.0-0.2); Absolute Eosinophil Count 0.03 10^3/uL (0.0-0.7); Absolute Lymphocyte Count 0.35 10^3/uL (1.2-3.4); Absolute Monocyte Count 0.45 10^3/uL (0.1-0.8); Absolute Neutrophil Count 3.01 10^3/uL (1.2-6.7); Basophils % 0.5; Eosinophils % 0.8; HCT 31.2 % (36.0-46.0); Immature Grans % 2.3; Lymphocytes % 8.9; MCH 31.7 pg (27.0-33.0); MCHC 32.1 % (32.0-36.0); MPV 9.1 fL (8.0-11.0); Monocytes % 11.4; Neutrophils % 76.1; Nucleated RBC 0 %; Platelet Count 382 10^3/uL (130-400); RBC 3.15 10^6/uL (3.93-5.22); RDW 15.9 % (11.7-14.6); RDW-SD 57.3 fL; WBC 3.95 10^3/uL (4.4-10.8)
[2021-09-30 14:57] LABS: ALT 17 U/L (14-59); AST 20 U/L (15-37); Albumin 3.8 g/dL (3.4-5.0); Alkaline Phosphatase 71 U/L (46-116); Anion Gap 9.2 mmol/L (3-11); BUN 11 mg/dL (7-18); Bilirubin, Total 0.4 mg/dL (0.2-1.0); CO2 27.8 mmol/L (21.0-32.0); CREATININE 0.7 mg/dL (0.55-1.02); Calcium 8.9 mg/dL (8.5-10.1); Chloride 104 mmol/L (98-107); Glucose 90 mg/dL (74-106); LDH 355 U/L (81-234); Potassium 4.3 mmol/L (3.5-5.1); Sodium 141 mmol/L (136-145); Total Protein 6.6 g/dL (6.4-8.2)
[2021-10-03 15:42] LABS: HBV DNA Detect/Quant, PCR Undetected IU/mL (Undetected)
[2021-10-21] MEDS: Normal Saline Flush 10 ML SYR IVP (10:09)
[2021-10-21 10:22] LABS: Abs Immature Grans 0.16 10^3/uL (0.0-0.06); Absolute Basophil Count 0.02 10^3/uL (0.0-0.2); Absolute Eosinophil Count 0.02 10^3/uL (0.0-0.7); Absolute Lymphocyte Count 0.43 10^3/uL (1.2-3.4); Absolute Monocyte Count 0.53 10^3/uL (0.1-0.8); Absolute Neutrophil Count 3.01 10^3/uL (1.2-6.7); Basophils % 0.5; Eosinophils % 0.5; HCT 30.7 % (36.0-46.0); HGB 9.9 g/dL (11.2-15.7); Immature Grans % 3.8; Lymphocytes % 10.3; MCH 32.7 pg (27.0-33.0); MCHC 32.2 % (32.0-36.0); MCV 101.3 fL (80-95); MPV 8.9 fL (8.0-11.0); Monocytes % 12.7; Neutrophils % 72.2; Nucleated RBC 0 %; Platelet Count 311 10^3/uL (130-400); RBC 3.03 10^6/uL (3.93-5.22); RDW 15.9 % (11.7-14.6); RDW-SD 58.8 fL; WBC 4.17 10^3/uL (4.4-10.8)
[2021-10-21 10:34] LABS: ALT 22 U/L (14-59); AST 13 U/L (15-37); Albumin 3.9 g/dL (3.4-5.0); Alkaline Phosphatase 72 U/L (46-116); Anion Gap 6.4 mmol/L (3-11); BUN 13 mg/dL (7-18); Bilirubin, Total 0.4 mg/dL (0.2-1.0); CO2 27.6 mmol/L (21.0-32.0); CREATININE 0.7 mg/dL (0.55-1.02); Calcium 8.4 mg/dL (8.5-10.1); Chloride 103 mmol/L (98-107); Glucose 97 mg/dL (74-106); LDH 404 U/L (81-234); Potassium 4.2 mmol/L (3.5-5.1); Sodium 137 mmol/L (136-145); Total Protein 6.6 g/dL (6.4-8.2)
[2021-10-22 20:27] LABS: HBV DNA Detect/Quant, PCR Undetected IU/mL (Undetected)
== END 2021-10-22 23:59 | disposition home or self-care (01) ==
LOC: INF 02:40
PROVIDERS: PCP Nurse Practitioner Family; Visit Provider Internal Medicine Hematology & Oncology
DX: C82.97 Follicular lymphoma, unspecified, spleen (principal); Z45.2 Encounter for adjustment and management of vascular access device
CPT/HCPCS: 36591; 80053; 87517; 83615; 85025

== ENCOUNTER 2022-03-24 02:18 | Outpatient (RCR) | payer MEDICARE, SELFPAY ==
[2022-02-24] MEDS: Heparin 500 UNITS/5 ML SYRINGE IV (09:11)
[2022-02-24] MEDS: Normal Saline Flush 10 ML SYR IVP (09:11)
[2022-02-24 09:31] LABS: Abs Immature Grans 0.01 10^3/uL (0.0-0.06); Absolute Eosinophil Count 0.12 10^3/uL (0.0-0.7); Absolute Monocyte Count 0.23 10^3/uL (0.1-0.8); HCT 35.3 % (36.0-46.0); HGB 11.3 g/dL (11.2-15.7); MCH 29.8 pg (27.0-33.0); MCV 93 fL (80-95); MPV 9.2 fL (8.0-11.0); Platelet Count 208 10^3/uL (130-400); RBC 3.79 10^6/uL (3.93-5.22); RDW 13.5 % (11.7-14.6); RDW-SD 46.2 fL
[2022-02-24 09:50] LABS: ALT 23 U/L (14-59); AST 24 U/L (15-37); Alkaline Phosphatase 59 U/L (46-116); Anion Gap 4.6 mmol/L (3-11); BUN 7 mg/dL (7-18); Bilirubin, Total 0.4 mg/dL (0.2-1.0); CO2 30.4 mmol/L (21.0-32.0); CREATININE 0.7 mg/dL (0.55-1.02); Calcium 8.9 mg/dL (8.5-10.1); Chloride 100 mmol/L (98-107); Glucose 81 mg/dL (74-106); LDH 296 U/L (81-234); Potassium 3.5 mmol/L (3.5-5.1); Sodium 135 mmol/L (136-145); Total Protein 6.9 g/dL (6.4-8.2)
[2022-02-24 10:03] LABS: Diff Comment Manual Differential; RBC Morphology Normal
[2022-02-24 10:04] LABS: Absolute Basophil Count 0.04 10^3/uL (0.0-0.2); Absolute Lymphocyte Count 0.38 10^3/uL (1.2-3.4); Absolute Neutrophil Count 0.58 10^3/uL (1.2-6.7)
[2022-02-24 10:10] LABS: WBC 1.36 10^3/uL (4.4-10.8)
== END 2022-03-24 23:59 | disposition home or self-care (01) ==
LOC: INF 02:18
PROVIDERS: PCP Nurse Practitioner Family; Visit Provider Nurse Practitioner Family
DX: C82.97 Follicular lymphoma, unspecified, spleen (principal); Z45.2 Encounter for adjustment and management of vascular access device
CPT/HCPCS: 36591; 80053; 83615; 85025

== ENCOUNTER → 2022-04-14 01:40 | Outpatient (CLI) | payer MEDICARE, SELFPAY ==
--- NOTE | 2022-04-14 | DI.CT_ITS ---
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 Oral contrast: Yes. Oral contrast was administered for bowel opacification. COMPARISON: CT NECK WITH CONTRAST from 10/04/[address] CHEST/ABD/PEL W from 11/23/[address] CHEST PE ABD PELVIS W from 05/17/2020 FINDINGS: CT SOFT TISSUES NECK WITH IV CONTRAST: Visualized paranasal sinuses are clear. Again noted are fixation plates on the anterior wall of the left maxillary sinus. No fluid in the visualized paranasal sinuses and mastoid air cells. Nasopharynx: Symmetrical. No mass. Oropharynx: No obvious abnormality. Retropharyngeal space: Unremarkable. Hypopharynx: Valleculae and epiglottis unremarkable. Aryepiglottic folds unremarkable. Vocal cords and subglottic airway: Unremarkable. Thyroid gland: Unremarkable. Salivary glands: Parotid and submandibular glands unremarkable. Lymph nodes: There is no abnormal lymphadenopathy in the neck and supraclavicular regions. CT CHEST WITH IV CONTRAST: Lungs: COPD emphysematous changes again noted. There is a small left-sided pneumothorax now evident approximately 10 percent. There is nodular infiltrate left lower lobe measuring 1.5 x 1 point cm and another similar nodular infiltrate slightly lower down in the left lower lobe measuring similar size . There are similar appearing patchy infiltrates in the right lower lobe also evident averaging carmelo lar size. No pleural effusions. There is no pneumothorax on the right side.. No findings in trachea and mainstem bronchi. Mediastinum: No hilar nor mediastinal adenopathy. No subcarinal adenopathy. Previously present axil leonel adenopathy is no longer seen. No supraclavicular adenopathy. Visualized thyroid unremarkable. Cardiac: Heart size normal. No pericardial effusion. Caliber thoracic aorta is within normal limits . No dissection. Osseous: No significant osseous lesions. No fractures. CT ABDOMEN PELVIS WITH IV CONTRAST: There is no ascites. Liver: Hepatic lucencies again noted. The largest of these is unchanged and has appearance of a prob able hemangioma subcapsular in the right hepatic lobe. Smaller similar appearing finding in the left hepatic lobe is probably also another hemangioma. Smaller lucencies again noted which are most prob ably benign cysts. There are no new ominous hepatic lesions. No dilatation of intrahepatic ducts. Gallbladder/biliary: No gallstones. CBD not dilated. Pancreas: No new pancreatic masses evident. Pancreatic duct is not dilated. Spleen: Spleen size normal. No splenic lesions. Splenic and portal veins are patent. Adrenals: No adrenal masses. Kidneys: No new significant focal renal findings. No calculi. No hydronephrosis. Abdominal aorta: Calcified but not enlarged. Lymph nodes: There is no para-aortic adenopathy. No prominent retroperitoneal adenopathy. Anterior abdominal wall: No hernias evident. No abnormal fluid collections. Pelvis: No evidence of appendicitis nor diverticulitis. No bowel obstruction. No free fluid. No free air. Uterus: Retroverted. Fibroid in the fundus again noted which measures 2.5 x 2.5 cm. No abnormal adn exal masses nor free fluid. Urinary bladder: Mild cystocele. Osseous: Indentation of superior endplate of L4, not previously present on the scan of 11/23/2019. N o obvious lytic lesions. No obvious blastic lesions. Mild degenerative anterolisthesis L5 upon S1. IMPRESSION: 1. There is 10 percent pneumothorax on the left side. There also multiple bilateral nodular infiltra juanito with average size 1.5 cm, not previously present. No pleural effusions on the present study and no intrathoracic adenopathy. 2. Previously present axillary adenopathy has resolved. 3. No significant focal findings nor adenopathy in the neck and no supraclavicular adenopathy. 4. Multiple benign-appearing a patent lesions again noted, unchanged, and probably a combination of h emangiomas and cysts. 5. No splenomegaly. No splenic lesions. 6. No ascites nor obvious nntop-nbcdeaxmz-yfvsyobgoey adenopathy. 7. Superior endplate compression fracture of L4, not previously present on 11/23/2019. No other sign ificant osseous findings. 8. Other findings as above.
[2022-04-14] MEDS: Barium Sulfate 2% W/V-Berry Smoothie 450 ML BTL 900 ML PO (11:26)
[2022-04-14] MEDS: Normal Saline Flush 10 ML SYR IVP (13:22)
[2022-04-14] MEDS: Omnipaque 350 MG/ML 100 ML BTL IJ (13:36)
== END ==
PROVIDERS: Visit Provider Internal Medicine Hematology & Oncology
DX: R91.8 Other nonspecific abnormal finding of lung field (principal); S39.92XA Unspecified injury of lower back, initial encounter; X58.XXXA Exposure to other specified factors, initial encounter
CPT/HCPCS: 36591; 70491; 74177; 80053; 87517; 71260; 83615; 85025; J3490

== ENCOUNTER 2022-04-14 02:03 | Outpatient (RCR) | payer MEDICARE, SELFPAY ==
[2022-03-25] MEDS: Heparin 500 UNITS/5 ML SYRINGE IV (12:49)
[2022-03-25] MEDS: Normal Saline Flush 10 ML SYR IVP (12:49)
[2022-03-25 13:19] LABS: Abs Immature Grans 0.01 10^3/uL (0.0-0.06); Absolute Basophil Count 0.01 10^3/uL (0.0-0.2); Absolute Eosinophil Count 0.01 10^3/uL (0.0-0.7); Absolute Monocyte Count 0.26 10^3/uL (0.1-0.8); Absolute Neutrophil Count 0.74 10^3/uL (1.2-6.7); Basophils % 0.8; Eosinophils % 0.8; HGB 11.5 g/dL (11.2-15.7); Immature Grans % 0.8; Lymphocytes % 22.6; MCH 30.6 pg (27.0-33.0); MCHC 32.9 % (32.0-36.0); MCV 93 fL (80-95); MPV 9.6 fL (8.0-11.0); Monocytes % 19.5; Neutrophils % 55.5; Platelet Count 257 10^3/uL (130-400); RBC 3.76 10^6/uL (3.93-5.22); RDW 14.7 % (11.7-14.6); RDW-SD 51.1 fL
[2022-03-25 13:24] LABS: WBC 1.33 10^3/uL (4.4-10.8)
[2022-03-25 13:47] LABS: Diff Comment Agrees w/ Instrument; RBC Morphology Normal
[2022-03-27 14:16] LABS: HBV DNA Detect/Quant, PCR Undetected IU/mL (Undetected)
[2022-04-14] MEDS: Normal Saline Flush 10 ML SYR IVP ×2 (11:15→14:00)
[2022-04-14 11:19] LABS: Absolute Eosinophil Count 0.04 10^3/uL (0.0-0.7); HCT 31.8 % (36.0-46.0); HGB 10.2 g/dL (11.2-15.7); MCH 29.9 pg (27.0-33.0); MCHC 32.1 % (32.0-36.0); MCV 93 fL (80-95); MPV 9.7 fL (8.0-11.0); Platelet Count 263 10^3/uL (130-400); RBC 3.41 10^6/uL (3.93-5.22); RDW 14.8 % (11.7-14.6); RDW-SD 51.6 fL; WBC 3.61 10^3/uL (4.4-10.8)
[2022-04-14 11:38] LABS: ALT 18 U/L (14-59); AST 22 U/L (15-37); Albumin 2.9 g/dL (3.4-5.0); Alkaline Phosphatase 77 U/L (46-116); Anion Gap 7.9 mmol/L (3-11); BUN 6 mg/dL (7-18); Bilirubin, Total 0.5 mg/dL (0.2-1.0); CO2 31.1 mmol/L (21.0-32.0); CREATININE 0.8 mg/dL (0.55-1.02); Calcium 8.7 mg/dL (8.5-10.1); Chloride 102 mmol/L (98-107); Estimated GFR 81.21 (mL/min/1.73m2); Glucose 85 mg/dL (74-106); LDH 281 U/L (81-234); Potassium 3.7 mmol/L (3.5-5.1); Sodium 141 mmol/L (136-145); Total Protein 6.8 g/dL (6.4-8.2)
[2022-04-14 11:40] LABS: Absolute Lymphocyte Count 0.18 10^3/uL (1.2-3.4); Absolute Monocyte Count 0.07 10^3/uL (0.1-0.8); Absolute Neutrophil Count 3.32 10^3/uL (1.2-6.7); Diff Comment Manual Differential; RBC Morphology Normal
[2022-04-14] MEDS: Heparin 500 UNITS/5 ML SYRINGE IV (14:00)
[2022-04-15 22:00] LABS: HBV DNA Detect/Quant, PCR Undetected IU/mL (Undetected)
== END 2022-04-23 23:59 | disposition home or self-care (01) ==
LOC: INF 02:03
PROVIDERS: Internal Medicine Hematology & Oncology; PCP Nurse Practitioner Family; Visit Provider Nurse Practitioner Family
DX: C82.97 Follicular lymphoma, unspecified, spleen (principal); Z45.2 Encounter for adjustment and management of vascular access device; Z86.19 Personal history of other infectious and parasitic diseases
CPT/HCPCS: 36591; 80053; 87517; 83615; 85025

== ENCOUNTER 2022-04-15 10:21 | Inpatient (IN) | payer MEDICARE, SELFPAY ==
[2022-04-15] VITALS (77 sets, daily range): BP systolic 80–128; BP diastolic 48–83; PULSE 59–160; RESP 11–32; TEMP 36.1–36.7; O2SAT 83–99
--- NOTE | 2022-04-15 10:30 | RT.EKG_ITS ---
APPROVED REPORT Exam: Resting ECG Reason for Exam: SOB, cancer Patient Location: E HR:151 bpm ECG Measurements Heart Rate 151 AXIS NC 160 P 0 QRSd 80 QRS 46 QT 342 T 90 QTc 543 Conclusion Sinus tachycardia Repolarization abnormality, prob rate related Prolonged QT interval...QTc >500mS No flutter waves appreciated
--- NOTE | 2022-04-15 10:30 | RT.EKG_ITS ---
APPROVED REPORT Exam: Resting ECG Reason for Exam: chest pain Patient Location: E HR:79 bpm ECG Measurements Heart Rate 79 AXIS CA 124 P 77 QRSd 79 QRS 80 QT 425 T 41 QTc 488 Conclusion Sinus rhythm LAE, consider biatrial enlargement. Nonspecific st changes
--- NOTE | 2022-04-15 10:30 | DI.CT_ITS ---
Exam(s) CT CHEST PE CTA EXAM: CT CHEST PE CTA CLINICAL HISTORY: SOB, Pneumothorax, cancer. TECHNIQUE: Imaging Protocol: Axial CT angiography was performed with multi-slice acquisition and mu lti-planar reconstructions as well as axial, coronal and sagittal MIP reconstructions. CONTRAST MATERIAL: Intravenous: Omnipaque 350 Contrast volume:[address] NECK CHEST ABD PEL W from 04/14/2022 FINDINGS: Pulmonary Arteries: No evidence of filling defect to suggest pulmonary emboli. Tracheobronchial tree: Patent where visualized. Mediastinum and Tish: No dominant adenopathy or fluid collection. Pulmonary parenchyma: Moderate emphysema greater in the upper lobes with, with multiple apical bullae . No change in scattered patchy bilateral infiltrates, greatest in the right lower lobe. Pleura: No effusion. Stable size small left pneumothorax Heart: The heart is not dilated. Minimal coronary artery calcifications are seen. Aorta: Thoracic aorta non-dilated. No aneurysm. No dissection. Mild atherosclerotic changes. Bones: Unremarkable for age. Tubes, Catheters, and Lines: Right-sided chest port. IMPRESSION: Stable small left pneumothorax. Stable bilateral scattered patchy pulmonary infiltrates. No evidenc e of pulmonary embolism. Results of this exam have been verbally communicated with the emergency department provider. RADIATION DOSE DELIVERED: 209.59mGy.cm Total DLP DATA REPOSITORY: All CT scans at this facility are submitted to the National Radiology Data Registry (NRDR) Dose Index Registry (DIR) with the [employer] (A[employer]). RADIATION OPTIMIZATION: All CT scans at this facility use at least one of these dose optimization te chniques: automated exposure control; mA and/or kV adjustment per patient size (includes targeted exa ms where dose is matched to clinical indication); or iterative reconstruction.
--- NOTE | 2022-04-15 10:42 | ED.GENADUL_ITS ---
Discharge Plan Disposition Patient Disposition: [facility] INPATIENT Condition: Stable Discharge Details Chief Complaint: SOB Clinical Impression: Pneumothorax on left, Pneumonia due to COVID-19 virus Primary Care Provider: None,None ED Provider: Ben Kapoor Home Meds and New Rx's Prescriptions: No Action simvastatin 40 MG tablet 40 mg PO DAILY oxycodone-acetaminophen 10-325 mg Tablet 1 tab PO TID PRN duloxetine [Cymbalta] 60 mg Capsule,Delayed Release(Dr/Ec) 60 mg PO DAILY naloxone [Narcan] 4 mg/actuation [place],Non-Aerosol 4 mg INTRANASAL Q2-3M PRN omeprazole 20 mg capsule,delayed release(DR/EC) 1 cap PO PRN PRN Label Comments: TAKE ONE CAPSULE BY MOUTH EVERY DAY Medical Decision Making This is a 66-year-old female with metastatic lymphoma, who underwent staging CT after recent round of chemotherapy that she finished. The CT was performed yesterday, revealing a 10% left-sided pneumothorax and bilateral nodular infiltrates; formal readin. There is 10 percent pneumothorax on the left side.? There also multiple bilateral nodular infiltrates with average size 1.5 cm, not previously present.? No pleural effusions on the present study and no intrathoracic adenopathy. 2. Previously present axillary adenopathy has resolved. 3. No significant focal findings nor adenopathy in the neck and no supraclavicular adenopathy. 4. Multiple benign-appearing a patent lesions again noted, unchanged, and probably a combination of hemangiomas and cysts. 5. No splenomegaly.? No splenic lesions. 6. No ascites nor obvious uxlii-diwgawyit-pjngltnoepj adenopathy. 7. Superior endplate compression fracture of L4, not previously present on 11/23/2019.? No other significant osseous findings. Today, patient presented with blood pressure 93 over 60s, heart rate in the 90s, oxygenating 92 to 93% on room air. Differential diagnosis would include persistent or enlarging pneumothorax, focal infiltrate, and must exclude PE for which the previous days imaging was not targeted/protocoled. Patient placed on a cardiac cath lab technologist, IV access established and she is given fluid bolus. Laboratories with reassuring electrolytes, BUN 8, creatinine 0.8. Magnesium is low at 1.5 and supplemented in the ER. Troponin I is elevated at 93. CBC White count of 4, hematocrit 31.8, platelets 271. CT PE protocol: Persistent small left-sided 5 to 10% pneumothorax. There is bilateral patchy infiltrate that is unchanged. Discussed small pneumothorax with on-call surgery, Dr. Egan. He recommends repeat x-ray in 24 hours and will follow along with patient Must consider COPD exacerbation with active infiltrate and patient given DuoNeb and ceftriaxone. Additionally, the patient resulted as positive for COVID-19. Patient observed and repeat troponin obtained. It is improving and has dropped to 68. At approximately 1 PM patient had an abrupt change to heart rate with tachycardia. She states this is happening ifrequently over months time and relates it to a side effect of her current chemotherapy. She is given additional liter of fluid and 2.5 mg of metoprolol IV which corrected her heart rate to 76. Patient will require admission for troponinemia, hypoxia, small pneumothorax, and COVID-19 pneumonia. HPI General Mode of arrival: ambulatory . Date/Time Provider Initiated Documentation: 04/15/22 10:22 . Limitations to Documentation: no limitations . Information obtained by: patient . History of Present Illness 66 year old F presents to the emergency department with the chief complaint of Shortness of breath, 10% pneumothorax on CAT scan yesterday, described as moderate, and is localized to the chest. Patient reports no radiation. Patient started experiencing this day(s) and it has been intermittent. Rest improves sympt om(s), Movement worsens symptoms . Patient notes cough and shortness of breath; denies fever/chills and syncope. Patient did receive the following treatments prior to arrival, none Related Data Home Medications Medication Instructions Recorded Confirmed simvastatin 40 mg tablet 40 mg PO DAILY 11/23/12 04/15/22 duloxetine 60 mg capsule,delayed 60 mg PO DAILY 05/01/20 04/15/22 release (Cymbalta) naloxone 4 mg/actuation nasal 4 mg intranasal Q2-3M PRN 05/01/20 04/15/22 spray (Narcan) oxycodone-acetaminophen 10 mg-325 1 tab PO TID PRN 05/01/20 04/15/22 mg tablet omeprazole 20 mg capsule,delayed 1 cap PO PRN PRN 04/15/22 04/15/22 release Allergies Allergy/AdvReac Type Severity Reaction Status Date / Time lamotrigine Allergy Unknown Unknown Unverified 05/18/21 09:15 milnacipran [From Savella] Allergy Unknown Unknown Unverified 05/18/21 09:15 varenicline Allergy Unknown Other (See Unverified 05/18/21 09:15 Comment) General Stated Complaint: SOB CHANDNI: 2 Review of Systems Narrative: 7 I systems reviewed and otherwise negative PFSH All Active Problems (Updated 04/15/22 @ 15:03 by Ben Kapoor MD) Pneumothorax on left (Acute) Pneumonia due to COVID-19 virus (Acute) Lymphoma (Acute) Medical History Asthma Bone metastasis Cigarette nicotine dependence Fibromyalgia Hemangioma of liver Hyperlipidemia Hypothyroidism pt states a medication did this to her, she DOES NOT have it.HE Major depression Stage Karley non Hodgkin's lymphoma Viral hepatitis B acute Vitamin D deficiency Surgical History Biopsy, Lymph Node excision ganglion cyst Hx of colonoscopy Hx of eye surgery Left Social History Smoking/Tobacco Use Status: Former Tobacco Use Quit Date: 04/11/22 Smoking risk assessment performed?: Yes Alcohol Intake: never Drug use: Never Substance use type: does not use Do you feel safe at home: Yes Do you feel safe in your relationship?: Yes Additional Social history: at bedside Exam Narrative Exam Narrative: GEN: awake, alert, oriented 3. Pleasant, well groomed, interactive. HEAD: Normocephalic, atraumatic ENT: Mucous membranes moist, oropharynx unremarkable, External ear exam unremarkable EYES: PERRL, EOMI NECK: Full ROM, no MARIMAR, no menigismus CHEST/RESP: Right chest port nontender, clear to auscultation bilateral, no wheeze/rhonchi/rales CARDIOVASCULAR: RRR, no murmur, rub marcie. 2+ Rad pulse bilateral ABDOMEN: Soft, nontender, no mass. +Bowel sounds EXT: Full ROM, no edema, no rash Neuro: Grossly normal neurologic exam, conversant, interactive. Psych: Speech fluent, thoughts congruent, affect normal Course Vital Signs Vital signs: Vital Signs Temperature 36.4 C L 04/15/22 10:25 Pulse 98 H 04/15/22 10:25 Respiratory Rate 20 04/15/22 10:25 Blood Pressure 93/64 L 04/15/22 10:25 Pulse Oximetry 91 L 04/15/22 10:25 Temperature 36.4 C L 04/15/22 10:25 Temperature Source Skin 04/15/22 10:25 Pulse 98 H 04/15/22 10:25 Respiratory Rate 04/15/22 10:25 Blood Pressure 93/64 L 04/15/22 10:25 Blood Pressure Position Sitting 04/15/22 10:25 Pulse Oximetry 91 L 04/15/22 10:25 Oxygen Delivery Method Room Air 04/15/22 10:25 Oxygen Flow Rate 0 04/15/22 10:25
[2022-04-15] MEDS: Normal Saline 1,000 ML 1000 ML IV ×2 (11:03→13:39)
[2022-04-15 11:12] LABS: Abs Immature Grans 0.95 10^3/uL (0.0-0.06); HCT 31.8 % (36.0-46.0); HGB 10.6 g/dL (11.2-15.7); MCH 30.5 pg (27.0-33.0); MCHC 33.3 % (32.0-36.0); MCV 92 fL (80-95); MPV 9.9 fL (8.0-11.0); Platelet Count 271 10^3/uL (130-400); RBC 3.47 10^6/uL (3.93-5.22); RDW 14.9 % (11.7-14.6); RDW-SD 50.4 fL; WBC 4.58 10^3/uL (4.4-10.8)
[2022-04-15 11:22] LABS: PTT Activated 32.3 sec (21.0-27.5); Prothrombin Time 10.2 sec (9.3-11.0)
[2022-04-15 11:26] LABS: ALT 15 U/L (14-59); AST 24 U/L (15-37); Albumin 2.9 g/dL (3.4-5.0); Alkaline Phosphatase 73 U/L (46-116); Anion Gap 10.7 mmol/L (3-11); BUN 8 mg/dL (7-18); Bilirubin, Total 0.5 mg/dL (0.2-1.0); CO2 28.3 mmol/L (21.0-32.0); CREATININE 0.8 mg/dL (0.55-1.02); Calcium 8.8 mg/dL (8.5-10.1); Chloride 99 mmol/L (98-107); Estimated GFR 81.21 (mL/min/1.73m2); Glucose 120 mg/dL (74-106); Magnesium 1.5 mg/dL (1.8-2.4); Potassium 3.6 mmol/L (3.5-5.1); Sodium 138 mmol/L (136-145); Total Protein 6.8 g/dL (6.4-8.2)
[2022-04-15] MEDS: Omnipaque 350 MG/ML 500 ML BTL-Imaging package IJ (11:26)
[2022-04-15 11:30] LABS: Troponin I 93 ng/L (<or=60)
[2022-04-15] MEDS: MAGNESIUM SULFATE 2 GM/50 ML BAG IVPB ×2 (11:38→20:41)
--- NOTE | 2022-04-15 11:50 | NUR.NOTE ---
Nursing Note: patient 02 stating at 89% room air, placed patient on 1L NC.
[2022-04-15] MEDS: Albuterol/Ipratropium 3 ML UPD VIAL UPD (12:03)
[2022-04-15 12:08] LABS: Absolute Neutrophil Count 4.12 10^3/uL (1.2-6.7)
[2022-04-15 12:09] LABS: Absolute Basophil Count 0.05 10^3/uL (0.0-0.2); Absolute Eosinophil Count 0.05 10^3/uL (0.0-0.7); Absolute Lymphocyte Count 0.14 10^3/uL (1.2-3.4); Absolute Monocyte Count 0.23 10^3/uL (0.1-0.8); Diff Comment Manual Differential
[2022-04-15 12:10] LABS: RBC Morphology Normal
[2022-04-15 12:46] LABS: Influenza A PCR Negative (Negative); Influenza B PCR Negative (Negative); RSV PCR Negative (Negative)
[2022-04-15 12:48] LABS: COVID-19 PCR Positive (Negative)
--- NOTE | 2022-04-15 13:10 | RT.EKG_ITS ---
APPROVED REPORT Exam: Resting ECG Reason for Exam: tachycardia Patient Location: E HR:148 bpm ECG Measurements Heart Rate 148 AXIS NH [id number] P [id number] QRSd 113 QRS 67 QT [id number] T 236 QTc 0 Conclusion NSR Nonspecific st changes
[2022-04-15] MEDS: Metoprolol 5 MG/5 ML VIAL IVP (13:26)
[2022-04-15] MEDS: oxyCODONE 15 MG TAB PO (13:56)
[2022-04-15 14:00] LABS: Troponin I 68 ng/L (<or=60)
[2022-04-15] MEDS: Aspirin 325 MG TAB PO (14:11)
--- NOTE | 2022-04-15 15:45 | W.PM.HP.N ---
Date of service: 04/15/22 Time of Service: 15:50 Assessment and Plan Assessment and plan (1) Pneumothorax on left: Status: Acute Assessment and plan: C/s general surgery. Will treat with oxygen and IS. Repeat CXR in am. (2) Pneumonia due to COVID-19 virus: Status: Acute Assessment and plan: with hypoxia. Treat with remdesivir, dexamethasone. Encourage pulmonary toilet. Supplement vitamin C, D, zinc. (3) Lymphoma: Status: Acute Assessment and plan: On chemo via [facility]. Qualifiers: Follicular lymphoma grade: grade II Lymphoma site: multiple regions Lymphoma type: non-Hodgkin Non-Hodgkin lymphoma type: follicular Qualified Code(s): C82.18 - Follicular lymphoma grade II, lymph nodes of multiple sites (4) Hypomagnesemia: Status: Acute Assessment and plan: Replete, and recheck in am. (5) Chronic anemia: Status: Acute Assessment and plan: check anemia studies (6) Sinus tachycardia: Status: Acute Assessment and plan: monitor on tele. obtain echo. Start lopressor 12.5 mg PO BID. A short burst of what appears to be Afib with BBB morphology was noted on tele today as well. (7) Elevated troponin: Status: Acute Assessment and plan: In setting of paroxysmal sinus tach vs Afib.. Suspect demand ischemia. Obtain echo. Doubt ACS. No indication for antiplatelet therapy at this time. (8) DVT prophylaxis: Status: Acute Assessment and plan: SC enoxaparin (9) Discharge planning issues: Status: Acute Assessment and plan: DNR/DNi per my conversation with the patient. History of Present Illness History of Present Illness Chief Complaint: Sent to ER due to CT results Narrative: Ms Diop is a 66 year old female with PMHx of high grade lymphoma on chemotherapy, as well as h/o hyperlipidemia, GERD, chronic pain, who was sent to [facility] ED by the oncology office since the results of staging CT yesterday revealed a small 5-10% pneumothorax on the left. The patient reported [place] and intermittent palpitations at home. She has had an occasionally productive cough for the last 2-2.5 months. Sputum is sometimes green and sometimes oneill. She does not normally use oxygen at home. She does smoke. In the ED, she had an episode of sinus tach to 150s which resolved after a dose of IV lopressor 2.5 mg x1. Her CTA chest today ruled out an acute PE. It does confirm a stable small left-sided pneumothorax which was reviewed with general surgery and was recommended to be treated medically. Additionally, though, the patient has bilateral scattered patchy pulmonary infiltrates and is COVID-19 positive. Her ER presentation was also consistent with a COPD exacerbation. She received a dose of steroids, and a hospitalist admission was requested. Because of her elevated white count, she was also initiated on ceftriaxone. She had a borderline elevated troponin, which was down trending without ischemic changes on the EKG (90->68). Hospitalist admission was requested. She denies rhinorrhea, sore throat, chest pain, nausea, diarrhea. She does not believe she has COVID-19. Review of Systems All systems reviewed & are unremarkable except as noted in HPI and below PFSH All Active Problems Discharge planning issues (Acute) DVT prophylaxis (Acute) Elevated troponin (Acute) Sinus tachycardia (Acute) Chronic anemia (Acute) Hypomagnesemia (Acute) Pneumothorax on left (Acute) Pneumonia due to COVID-19 virus (Acute) Lymphoma (Acute) Medical History Asthma Bone metastasis Cigarette nicotine dependence Fibromyalgia Hemangioma of liver Hyperlipidemia Hypothyroidism pt states a medication did this to her, she DOES NOT have it.HE Major depression Stage Karley non Hodgkin's lymphoma Viral hepatitis B acute Vitamin D deficiency Surgical History Biopsy, Lymph Node excision ganglion cyst Hx of colonoscopy Hx of eye surgery Left Social History Smoking/Tobacco Use Status: Former Tobacco Use Quit Date: 04/11/22 Smoking risk assessment performed?: Yes Alcohol Intake: never Drug use: Never Substance use type: does not use Do you feel safe at home: Yes Do you feel safe in your relationship?: Yes Additional Social history: at bedside Meds Allergies and Home Medications Allergies Allergy/AdvReac Type Severity Reaction Status Date / Time lamotrigine Allergy Unknown Unknown Unverified 04/15/22 16:14 milnacipran [From Savella] Allergy Unknown Unknown Unverified 04/15/22 16:14 varenicline Allergy Unknown Other (See Unverified 04/15/22 16:14 Comment) Home Medications Medication Instructions Recorded Confirmed Type simvastatin 40 mg tablet 40 mg PO DAILY 11/23/12 04/15/22 History duloxetine 60 mg capsule,delayed 60 mg PO DAILY 05/01/20 04/15/22 History release (Cymbalta) naloxone 4 mg/actuation nasal 4 mg intranasal Q2-3M PRN 05/01/20 04/15/22 History spray (Narcan) oxycodone-acetaminophen 10 mg-325 1 tab PO QID 05/01/20 04/15/22 History mg tablet omeprazole 20 mg capsule,delayed 1 cap PO PRN PRN 04/15/22 04/15/22 History release Exam Narrative Exam Narrative: General: Pleasant female who is [place], A&Ox3, does not appear dyspneic/tachypneic/cyanotic on 3L of O2 by NC Neurological: A&Ox3, CN II-XII intact, no focal deficits Psychiatric: Appropriate speech pattern/content Skin: Visible skin dry, intact; has a R chest infusaport HEENT: Atraumatic, normocephalic, EOMI, MMM, clear oropharynx, no goiter or JVD Cardiovascular: RRR, no m/r/g Lungs: CTAB Gastrointestinal: soft, nontender, nondistended Genitourinary: deferred Extremities: trace edema BLEs Results Imaging Additional studies: CTA chest: Stable small left pneumothorax.? Stable bilateral scattered patchy pulmonary infiltrates.? No evidence of pulmonary embolism. EKG #1: HR 79, NSR, no acute ischemia EKG #2: HR 151, sinus tach, diffuse ST-T changes (ST segment depressions) EKG #3: HR 90, NSR, no acute ischemia Labs Result diagrams: 04/15/22 10:55 04/15/22 10:55 Labs: Laboratory Results - last 24 hr 04/15/22 04/15/22 04/15/22 10:55 10:55 10:55 WBC 4.58 RBC 3.47 L Hgb 10.6 L Hct 31.8 L MCV 92 MCH 30.5 MCHC 33.3 RDW 14.9 H Plt Count 271 MPV 9.9 Immature Gran % See Differential Neutrophils % 90.0 Lymphocytes % 3.0 Monocytes % 5.0 Eosinophils % 1.0 Basophils % 1.0 Nucleated RBC % 0.0 Absolute Neutrophils 4.12 Absolute Lymphocytes 0.14 L Absolute Monocytes 0.23 Absolute Eosinophils 0.05 Absolute Basophils 0.05 RBC Morphology Normal PT 10.2 INR 1.0 APTT 32.3 H Sodium 138 Potassium 3.6 Chloride 99 Carbon Dioxide 28.3 Anion Gap 10.7 BUN 8 Creatinine 0.8 Est GFR (CKD-EPI 2020) 81.21 Glucose 120 H Calcium 8.8 Magnesium 1.5 L Total Bilirubin 0.5 AST 24 ALT 15 Alkaline Phosphatase 73 Troponin I 93 H* Total Protein 6.8 Albumin 2.9 L COVID-19 Source SARS-CoV-2 (PCR) Influenza Type A (PCR) Influenza Type B (PCR) RSV (PCR) 04/15/22 04/15/22 12:00 13:24 WBC RBC Hgb Hct MCV MCH MCHC RDW Plt Count MPV Immature Gran % Neutrophils % Lymphocytes % Monocytes % Eosinophils % Basophils % Nucleated RBC % Absolute Neutrophils Absolute Lymphocytes Absolute Monocytes Absolute Eosinophils Absolute Basophils RBC Morphology PT INR APTT Sodium Potassium Chloride Carbon Dioxide Anion Gap BUN Creatinine Est GFR (CKD-EPI 2020) Glucose Calcium Magnesium Total Bilirubin AST ALT Alkaline Phosphatase Troponin I 68 H* Total Protein Albumin COVID-19 Source Not Applicable SARS-CoV-2 (PCR) Positive A Influenza Type A (PCR) Negative Influenza Type B (PCR) Negative RSV (PCR) Negative Last Vital Signs Temp 36.6 C 04/15/22 13:16 Pulse 68 04/15/22 14:45 Resp 19 04/15/22 14:45 BP 105/57 L 04/15/22 14:45 Pulse Ox 96 04/15/22 14:45
--- NOTE | 2022-04-15 16:34 | W.SURGCON ---
Date of service: 04/15/22 Time of Service: 16:34 Assessment and Plan Assessment and plan (1) Pneumothorax on left: Status: Acute Assessment and plan: This is a small pneumothorax in the background setting of bullous emphysematous changes. It is certainly reassuring that the size of the pneumothorax is about the same today as it was yesterday. Follow-up may be contributing to some of her dyspnea, perhaps some of her hypoxemia, I suspect that her parenchymal lung disease is formally responsible for the symptoms. I do not think adding a tube thoracostomy would offer much advantage at this point. I think the safest course of action is to repeat a formal chest x-ray tomorrow to see if there is any evolution. Certainly, if she develops significant respiratory failure, or hemodynamic instability that is consistent with tension physiology, that she would certainly need intervention. History of Present Illness History of Present Illness Chief Complaint: Referred to the emergency department for pneumothorax seen on CAT scan Narrative: Tierney is a 66-year-old woman who is undergoing chemotherapy for high-grade lymphoma. She was being seen in the oncology office yesterday, and underwent a staging CT scan. A left-sided pneumothorax was observed on the CAT scan, and she was referred to the emergency department. During their evaluation in the ER, she did report some exertional dyspnea. She underwent a repeat CT scan of the chest today that looks about the same with regards to the size of her pneumothorax. Incidentally, patchy bilateral infiltrates were also observed on the chest CT, and the patient was found to be COVID-positive. I was consulted for my opinion regarding her left-sided pneumothorax. Consults Consult date: 04/15/22 Requesting physician: Ben Kapoor Review of Systems Constitutional Constitutional: Reports system reviewed and no additional complaints, except as documented Eyes Eyes: Reports system reviewed and no additional complaints, except as documented ENT Ears, Nose, Mouth, and Throat: Reports system reviewed and no additional complaints, except as documented Cardiovascular Cardiovascular: Denies chest pain, Reports dyspnea and Reports dyspnea on exertion Respiratory Respiratory: Reports cough, Denies pain on inspiration, Denies pain with cough, Reports dyspnea and Reports dyspnea on exertion Gastrointestinal Gastrointestinal: Reports system reviewed and no additional complaints, except as documented Musculoskeletal Musculoskeletal: Reports system reviewed and no additional complaints, except as documented Neurologic Neurologic: Reports system reviewed and no additional complaints, except as documented Hematologic/Lymphatic Hematologic/Lymphatic: Denies easy bleeding and Denies easy bruising PFSH All Active Problems Discharge planning issues (Acute) DVT prophylaxis (Acute) Elevated troponin (Acute) Sinus tachycardia (Acute) Chronic anemia (Acute) Hypomagnesemia (Acute) Pneumothorax on left (Acute) Pneumonia due to COVID-19 virus (Acute) Lymphoma (Acute) Medical History Asthma Bone metastasis Cigarette nicotine dependence Fibromyalgia Hemangioma of liver Hyperlipidemia Hypothyroidism pt states a medication did this to her, she DOES NOT have it.HE Major depression Stage Karley non Hodgkin's lymphoma Viral hepatitis B acute Vitamin D deficiency Surgical History Biopsy, Lymph Node excision ganglion cyst Hx of colonoscopy Hx of eye surgery Left Social History Smoking/Tobacco Use Status: Former Tobacco Use Quit Date: 04/11/22 Smoking risk assessment performed?: Yes Alcohol Intake: never Drug use: Never Substance use type: does not use Do you feel safe at home: Yes Do you feel safe in your relationship?: Yes Additional Social history: at bedside Exam Const General: cooperative and comfortable Orientation: awake and oriented x3 Eyes General: appearance normal, both eyes and all related structures Conjunctivae: conjunctivae normal Sclera: sclerae normal Resp Effort & Inspection: normal respiratory effort, able to speak in complete sentences and cough Auscultation: crackles Cardio Jugular venous pressure: no JVD Rate: regular rate GI Inspection: non-distended Palpation: soft, no guarding, no hernias and nontender Auscultation: normal bowel sounds Skin General skin exam: normal turgor Neuro General: patient alert, patient awake and patient oriented x3 Cognition: normal cognition Extrem Right lower extremity: no edema Left lower extremity: no edema Results Last Vital Signs Temp 97.9 F 04/15/22 13:16 Pulse 59 L 04/15/22 16:16 Resp 11 L 04/15/22 16:16 BP 95/58 L 04/15/22 16:16 Pulse Ox 94 04/15/22 16:16 Labs Result diagrams: 04/16/22 06:45 04/16/22 06:45 Labs: Laboratory Results - last 24 hr 04/15/22 04/15/22 04/15/22 10:55 10:55 10:55 WBC 4.58 RBC 3.47 L Hgb 10.6 L Hct 31.8 L MCV 92 MCH 30.5 MCHC 33.3 RDW 14.9 H Plt Count 271 MPV 9.9 Immature Gran % See Differential Neutrophils % 90.0 Lymphocytes % 3.0 Monocytes % 5.0 Eosinophils % 1.0 Basophils % 1.0 Nucleated RBC % 0.0 Absolute Neutrophils 4.12 Absolute Lymphocytes 0.14 L Absolute Monocytes 0.23 Absolute Eosinophils 0.05 Absolute Basophils 0.05 RBC Morphology Normal PT 10.2 INR 1.0 APTT 32.3 H Sodium 138 Potassium 3.6 Chloride 99 Carbon Dioxide 28.3 Anion Gap 10.7 BUN 8 Creatinine 0.8 Est GFR (CKD-EPI 2020) 81.21 Glucose 120 H Calcium 8.8 Magnesium 1.5 L Total Bilirubin 0.5 AST 24 ALT 15 Alkaline Phosphatase 73 Troponin I 93 H* Total Protein 6.8 Albumin 2.9 L COVID-19 Source SARS-CoV-2 (PCR) Influenza Type A (PCR) Influenza Type B (PCR) RSV (PCR) 04/15/22 04/15/22 12:00 13:24 WBC RBC Hgb Hct MCV MCH MCHC RDW Plt Count MPV Immature Gran % Neutrophils % Lymphocytes % Monocytes % Eosinophils % Basophils % Nucleated RBC % Absolute Neutrophils Absolute Lymphocytes Absolute Monocytes Absolute Eosinophils Absolute Basophils RBC Morphology PT INR APTT Sodium Potassium Chloride Carbon Dioxide Anion Gap BUN Creatinine Est GFR (CKD-EPI 2020) Glucose Calcium Magnesium Total Bilirubin AST ALT Alkaline Phosphatase Troponin I 68 H* Total Protein Albumin COVID-19 Source Not Applicable SARS-CoV-2 (PCR) Positive A Influenza Type A (PCR) Negative Influenza Type B (PCR) Negative RSV (PCR) Negative
[2022-04-15] MEDS: Dexamethasone 4 MG/ML VIAL 6 MG IVP (18:19)
[2022-04-15] MEDS: Enoxaparin 40 MG/0.4 ML SYR SC (18:19)
[2022-04-15] MEDS: Normal Saline Flush 10 ML SYR IVP (18:19)
[2022-04-15] MEDS: REMDESIVIR 200 MG in Normal Saline 250 ML 250 MG IVPB (18:19)
[2022-04-15] MEDS: oxyCODONE 10 MG TAB PO (19:30)
[2022-04-15] MEDS: Simvastatin 40 MG TAB PO (20:31)
[2022-04-15] MEDS: Ascorbic Acid 500 MG TAB 1000 MG PO (20:31)
[2022-04-15] MEDS: Ipratropium/Albuterol 4 GM 120 PUFF INH IH (20:31)
[2022-04-15] MEDS: Metoprolol 12.5 MG TAB PO (20:31)
[2022-04-15] MEDS: DOXYCYCLINE 100 MG in Normal Saline 100 ML IVPB (22:47)
[2022-04-16] VITALS (11 sets, daily range): BP systolic 116–139; BP diastolic 82–85; PULSE 47–80; RESP 15–18; TEMP 35.4–36.2; O2SAT 94–100
[2022-04-16] MEDS: oxyCODONE 10 MG TAB PO ×3 (04:23→14:34)
[2022-04-16 06:52] LABS: HCT 29.1 % (36.0-46.0); HGB 9.4 g/dL (11.2-15.7); MCH 30.2 pg (27.0-33.0); MCHC 32.3 % (32.0-36.0); MCV 94 fL (80-95); MPV 9.9 fL (8.0-11.0); Platelet Count 229 10^3/uL (130-400); RBC 3.11 10^6/uL (3.93-5.22); RDW 14.9 % (11.7-14.6); RDW-SD 51.7 fL; WBC 2.64 10^3/uL (4.4-10.8)
[2022-04-16 07:04] LABS: Absolute Lymphocyte Count 0.13 10^3/uL (1.2-3.4); Absolute Monocyte Count 0.16 10^3/uL (0.1-0.8); Absolute Neutrophil Count 2.35 10^3/uL (1.2-6.7); Bands % 1
[2022-04-16 07:05] LABS: Diff Comment Manual Differential; RBC Morphology Normal
[2022-04-16 07:19] LABS: Anion Gap 7.8 mmol/L (3-11); BUN 10 mg/dL (7-18); CO2 28.2 mmol/L (21.0-32.0); CREATININE 0.5 mg/dL (0.55-1.02); Calcium 8.4 mg/dL (8.5-10.1); Chloride 107 mmol/L (98-107); Estimated GFR 103.38 (mL/min/1.73m2); Ferritin 699 ng/mL (8-252); Glucose 109 mg/dL (74-106); Magnesium 1.8 mg/dL (1.8-2.4); Potassium 4.1 mmol/L (3.5-5.1); Sodium 143 mmol/L (136-145)
[2022-04-16 07:36] LABS: Iron 41 ug/dL (50-170); Total Iron Binding Capacity 121 ug/dL (250-450); Transferrin Sat 34 % (15-50)
--- NOTE | 2022-04-16 08:00 | DI.RAD_ITS ---
Exam(s) XR PORTABLE CHEST AP EXAM: XR PORTABLE CHEST AP CLINICAL HISTORY: follow up pneumothorax TECHNIQUE: 2D digital imaging was performed. COMPARISON: CT CT CHEST PE CTA from 04/15/2022 FINDINGS: Port overlying the right chest with tip in SVC. Leads are noted overlying the chest. There is artif act from overlying material. No pneumothorax is visible. Tiny apical pneumothorax not excluded. No infiltrates or effusions. HEART: Normal. AORTA: Calcification at are BONES: Unremarkable for age. IMPRESSION: No visible pneumothorax. DATA REPOSITORY: RADIATION DOSE DELIVERED:
[2022-04-16] MEDS: Benzonatate 100 MG CAP PO ×2 (08:36→14:34)
[2022-04-16] MEDS: Zinc Sulfate 220 MG TAB PO (08:36)
[2022-04-16] MEDS: Ascorbic Acid 500 MG TAB 1000 MG PO (08:36)
[2022-04-16] MEDS: Metoprolol 12.5 MG TAB PO (08:36)
[2022-04-16] MEDS: Cholecalciferol (Vitamin D3) 1,000 UNIT TAB 2000 UNITS PO (08:37)
[2022-04-16] MEDS: Omeprazole 20 MG CAPCR PO (08:37)
[2022-04-16] MEDS: DULoxetine 30 MG CAP 60 MG PO (08:37)
[2022-04-16] MEDS: guaiFENesin 600 MG TABCR PO (08:40)
[2022-04-16] MEDS: cefTRIAXone 1 GM/50 ML BAG IVPB (08:40)
[2022-04-16] MEDS: Normal Saline Flush 10 ML SYR IVP ×3 (08:41→18:41)
[2022-04-16] MEDS: Ipratropium/Albuterol 4 GM 120 PUFF INH IH ×2 (08:44→12:18)
[2022-04-16 08:56] LABS: Folate > 20.0 ng/mL (8.6-20.0); Vitamin B12 > 2000 pg/mL (193-986)
--- NOTE | 2022-04-16 09:55 | PDOC.CMIN ---
- If Service Date Differs Date of service: 04/16/22 Time of Service: 09:55 Care Management Initial Assess REASON FOR HOSPITALIZATION:: Pneumothorax on left, Pneumonia due to COVID-19 virus, Lymphoma PAST MEDICAL HISTORY/PAST SURGICAL HISTORY:: All Active Problems . Discharge planning issues (Acute). DVT prophylaxis (Acute). Elevated troponin (Acute). Sinus tachycardia (Acute). Chronic anemia (Acute). Hypomagnesemia (Acute). Pneumothorax on left (Acute). Pneumonia due to COVID-19 virus (Acute). Lymphoma (Acute). Medical History . Asthma. Bone metastasis. Cigarette nicotine dependence. Fibromyalgia. Hemangioma of liver. Hyperlipidemia. Hypothyroidism. pt states a medication did this to her, she DOES NOT have it.HE. Major depression. Stage Karley non Hodgkin's lymphoma. Viral hepatitis B acute. Vitamin D deficiency. Surgical History . Biopsy, Lymph Node. excision ganglion cyst. Hx of colonoscopy. Hx of eye surgery. Left PREVIOUS FUNCTIONAL STATUS/SOCIAL/FAMILY SUPPORTS:: Patrick lives in [facility] with her Fred. She is active and independent with her ADL's at baseline. CURRENT FUNCTIONAL STATUS:: CM spoke with Patrick via phone due to Covid Precautions. Per pt, she is feeling much better and off O2. She is using her IS and Accapella as prescribed. Per patient, her PCP is Malachi Germain. ADVANCE DIRECTIVES:: On file, [facility] is Fred. Has patient been provided with info about the portal/API?: Yes Did the patient sign up for the portal?: No CODE STATUS:: DNR/DNI INSURANCE COVERAGE / FINANCIAL ISSUES:: CBA. Medicare CURRENT HOME/COMMUNITY SERVICES/EQUIPMENT:: [facility]: Chemo PRIMARY CARE PHYSICIAN:: Malachi Germain POTENTIAL DISCHARGE NEEDS:: Follow up appointments with PCP, [facility] and community providers. PATIENT/FAMILY EDUCATION NEEDS:: Review discharge instructions, limitations, medications and plan to follow up with community providers. Review ask me three. TRANSPORTATION:: Via private vehicle with family. PLAN:: Anticipate, Patrick will discharge home via private vehicle with family, when medically ready. She will follow up with her community providers and discharge plan of care as prescribed.
[2022-04-16] MEDS: DOXYCYCLINE 100 MG in Normal Saline 100 ML IVPB (10:00)
--- NOTE | 2022-04-16 10:51 | TELEP.MEDREC ---
Date of service: 04/16/22 Time of Service: 10:52 Telepharmacy Home Med Rec Allergies Allergies: lamotrigine Allergy (Unknown, Unverified 04/15/22 16:14) Unknown milnacipran [From Savella] Allergy (Unknown, Unverified 04/15/22 16:14) Unknown varenicline Allergy (Unknown, Unverified 04/15/22 16:14) Other (See Comment) Interview Person Interviewed: patient Quality Quality of Interview/Accuracy of Medication List: Good Sources Sources used to compile medication list: [employer] Medication List, Patient List and [employer] Changes made to Home Medication List: ADDITIONS: oxycodone 5mg taken with oxycodone / acetaminophen 10/.325 four times daily for a totoal doseof 15mg of oxycodone Vitamin D3 Calcium DELETIONS: none CHANGES: none Additional Notes Additional Notes: none Recommended Changes Recommended Changes(reason for recommendation): none Attestation: The home medication list is now updated to the best of my knowledge and is ready to be reconciled by the provider. Please contact the TelePharmacy Medication Reconciliation Pharmacist at for any questions.
--- NOTE | 2022-04-16 12:35 | RESPIRATORY ---
RT trialed pt on room air. Pt maintains well resting on room air, when she goes into a coughing fit, SpO2 decreases to 90% for a short period. Pt able to recover from this with an SpO2 of 96% within >1 minute. Pt's baseline is no O2 use at home.
--- NOTE | 2022-04-16 13:24 | W.PM.PROGNOT ---
Date of Service Date of service: 04/16/22 Time of Service: 13:24 Assessment and Plan Assessment and plan (1) Pneumothorax on left: Status: Acute Assessment and plan: This is a small pneumothorax in the background setting of bullous emphysematous changes. It is certainly reassuring that the size of the pneumothorax is about the same on 04/15 as it was on 04/14. CXR was OK today. We will sign off for now. Certainly, if she develops significant respiratory failure, or hemodynamic instability that is consistent with tension PTX then please call and we will see her again.. Subjective Subjective Interval history since last seen: Patient not seen today. She was seen last night for small PTX on CT scan. CXR this am showed no PTX. Objective Last Vital Signs Temp 96.4 F L 04/16/22 11:34 Pulse 51 L 04/16/22 11:34 Resp 15 04/16/22 11:34 BP 131/85 04/16/22 11:34 Pulse Ox 95 04/16/22 12:31 Laboratory Results - last 24 hr 04/15/22 04/16/22 04/16/22 13:24 06:45 06:45 WBC 2.64 L RBC 3.11 L Hgb 9.4 L Hct 29.1 L MCV 94 MCH 30.2 MCHC 32.3 RDW 14.9 H Plt Count 229 MPV 9.9 Immature Gran % 0.0 Neutrophils % 88.0 Band Neutrophils % 1 Lymphocytes % 5.0 Monocytes % 6.0 Eosinophils % 0.0 Basophils % 0.0 Nucleated RBC % 0.0 Absolute Neutrophils 2.35 Absolute Lymphocytes 0.13 L Absolute Monocytes 0.16 Absolute Eosinophils 0.00 Absolute Basophils 0.00 RBC Morphology Normal Sodium 143 Potassium 4.1 Chloride 107 Carbon Dioxide 28.2 Anion Gap 7.8 BUN 10 Creatinine 0.5 L Est GFR (CKD-EPI 2020) 103.38 Glucose 109 H Calcium 8.4 L Magnesium 1.8 Iron TIBC Transferrin % Sat Ferritin 699 H Troponin I 68 H* Vitamin B12 Folate 04/16/22 04/16/22 06:45 06:45 WBC RBC Hgb Hct MCV MCH MCHC RDW Plt Count MPV Immature Gran % Neutrophils % Band Neutrophils % Lymphocytes % Monocytes % Eosinophils % Basophils % Nucleated RBC % Absolute Neutrophils Absolute Lymphocytes Absolute Monocytes Absolute Eosinophils Absolute Basophils RBC Morphology Sodium Potassium Chloride Carbon Dioxide Anion Gap BUN Creatinine Est GFR (CKD-EPI 2020) Glucose Calcium Magnesium Iron 41 L TIBC 121 L Transferrin % Sat 34 Ferritin Troponin I Vitamin B12 > 2000 H Folate > 20.0 H
[2022-04-16] MEDS: Docusate Sodium 100 MG CAP PO (14:33)
--- NOTE | 2022-04-16 16:18 | NUR.NOTE ---
Nursing Note: I have reviewed the charting of Xi Urena LPN and find it to be accurate
[2022-04-16] MEDS: REMDESIVIR 100 MG in Normal Saline 250 ML 250 MG IVPB (16:45)
--- NOTE | 2022-04-16 16:49 | DSE_ITS ---
Date of service: 04/16/22 Time of Service: 16:59 DS: Diagnosis Discharge Diagnosis (1) Pneumothorax on left: Status: Resolved (2) Pneumonia due to COVID-19 virus: Status: Acute (3) Hypoxia: Status: Resolved (4) Hypomagnesemia: Status: Acute (5) Chronic anemia: Status: Acute (6) Sinus tachycardia: Status: Acute (7) Elevated troponin: Status: Acute (8) Lymphoma: Status: Acute Discharge Plan Disposition Patient Disposition: HOME Condition: Stable Discharge Details Reason For Visit: Covid-19, Pneumothorax,Hypoxia, Sinus Tach Admit Date/Time: 04/15/22 15:40 Admit Provider: Manuela Santiago Attending Provider: Manuela Santiago Primary Care Provider: None,None Hospital Course Hospital Course: Ms Diop is a 66 year old female with PMHx of high grade lymphoma on chemotherapy, as well as h/o asthma, hyperlipidemia, GERD, who was a patient on [facility] hospitalist service from 04/15/22 until 04/16/22 for monitoring of a pneumothorax and a new diagnosis of COVID-19 with hypoxia requiring up to 3L of O2 by [place]. Additionally, the patient was found to have paroxysms of sinus tachycardia of which she was symptomatic. PE was ruled out with a negative CTA. She did have a very mildly elevated troponin felt to be secondary to demand ischemia and does not require further ischemic workup. She was treated with supplemental oxygen, remdesivir, dexamethasone, bronchodilators, antitussives. Her repeat XR this morning shows resolution of her pneumothorax. She did not require oxygen on ambulatory pulse ox testing and is felt to be safe for discharge home today. She is being prescribed a course of paxlovid, prednisone, antitussives. She should follow up with her PCP In 1-2 weeks. She should self-isolate for 10 days. Care for patient as well as completion of her discharge summary on day of discharge took 40 minutes. Home Meds and New Rx's Prescriptions: New albuterol sulfate [Ventolin HFA] 90 mcg/actuation Hfa Aerosol Inhaler 2 puff inhalation Q4H PRN PRN (Reason: shortness of breath or wheezing) Qty: 6.7 0RF ascorbic acid (vitamin C) [Vitamin C] 500 mg Tablet 1,000 mg PO BID Qty: 28 0RF benzonatate 100 mg Capsule 100 mg PO TID PRN PRNQty: 30 0RF zinc sulfate [Zinc-220] 50 mg zinc (220 mg) Capsule 50 mg PO DAILY Qty: 7 0RF cholecalciferol (vitamin D3) 25 mcg (1,000 unit) Tablet 2,000 units PO DAILY Qty: 10 0RF guaifenesin [Mucus Relief ER] 600 mg Tablet Extended Release 12hr 600 mg PO BID Qty: 30 0RF prednisone 20 mg tablet 40 mg PO DAILY Qty: 6 0RF metoprolol succinate [Toprol XL] 25 mg tablet extended release 24 hr 12.5 mg PO DAILY Qty: 30 0RF Paxlovid (EUA) 300 mg (150 mg x 2)-100 mg tablets,dose pack See Rx Instructions .ROUTE .COMPLEX Qty: 30 0RF Rx Instructions: take TWO 150 mg tablets of nirmatrelvir with ONE 100 mg tablet of ritonavir twice daily for 5 days Continued oxycodone-acetaminophen 10-325 mg Tablet 1 tab PO QID Rx Instructions: takes with a 5mg oxycodone for a total of 15mg duloxetine [Cymbalta] 60 mg Capsule,Delayed Release(Dr/Ec) 60 mg PO DAILY naloxone [Narcan] 4 mg/actuation [place],Non-Aerosol 4 mg INTRANASAL Q2-3M PRN omeprazole 20 mg capsule,delayed release(DR/EC) 1 cap PO PRN PRN Label Comments: TAKE ONE CAPSULE BY MOUTH EVERY DAY calcium 500 mg Tablet 500 mg PO DAILY oxycodone 5 mg Tablet 5 mg PO Q6H PRN cholecalciferol (vitamin D3) [Vitamin D3] 25 mcg (1,000 unit) Capsule 25 mcg PO DAILY Held simvastatin 40 MG tablet 40 mg PO DAILY Hold Instructions: Resume on 04/28/22. Discharge Instructions Instructions: Spontaneous Pneumothorax (DC), COVID-19 (Coronavirus Disease 2019) (DC) Additional Instructions: Return to the hospital with any fever, bleeding chest pain, worsening shortness of breath. Finish your prednisone and paxlovid as prescribed. Follow up with your PCP in 1-2 weeks. You must self-isolate for a total of 10 days from your positive COVID-19 test. Stand Alone Forms: Nursing Discharge Form Referrals: PCP [Other] (Please call PCP to make a follow up appointment for 1-2 weeks) Activity:: Activity as Tolerated Equipment/Supplies:: cardiac event recorder Diet:: As Tolerated Discharge Orders Discharge Orders: Discharge Order (Routine); Ordered 04/16/22 Ordered By: Manuela Santiago Other Ambulatory Orders: Cardiac Event Recorder (Routine) Timeframe: 1 Day Facility: [facility] - Location: Respiratory Therapy Ordered By: Manuela Santiago DS: Summary Time Spent with Patient providing and/or coordinating discharge services: Greater than 30 minutes Status at Discharge Functional status at discharge: independent ambulation Overall status at discharge: patient is progressing back to baseline Mental Status: mental status grossly normal Speech and Movement: speech and movement normal Mood: congruent mood Affect: normal affect Exam Narrative Exam Narrative: Exam on day of discharge was done over the phone given her diagnosis of COVID- 19. The patient is A&Ox3, speaking in full sentences on RA without any dyspnea or tachypnea Psych Mental Status: mental status grossly normal Speech and Movement: speech and movement normal Mood: congruent mood Affect: normal affect DS: Data Vitals/I&O Vitals and I&O: Vital Signs Temperature 36.2 C L 04/16/22 14:39 Temperature Source Tympanic 04/16/22 14:39 Pulse 74 04/16/22 14:39 Pulse Rhythm Regular 04/16/22 15:29 Pulse 60 04/15/22 16:16 Respiratory Rate 16 04/16/22 14:39 Respiratory Effort Non-Labored 04/16/22 15:29 Respiratory Depth Normal 04/16/22 15:29 Respiratory Pattern Normal 04/16/22 15:29 Blood Pressure 116/82 04/16/22 14:39 Blood Pressure Mean 67 04/15/22 16:16 Blood Pressure Position Sitting 04/15/22 10:25 Pulse Oximetry 95 04/16/22 14:39 Oxygen Delivery Method Room Air 04/16/22 14:39 Oxygen Flow Rate 0 04/16/22 14:39 Pain Level 5 04/16/22 14:39 Comment 04/16/22 11:34 Intake & Output 04/15/22 04/16/22 04/16/22 23:59 11:59 23:59 Intake Total 2066.667 / 2450.000 620 / 620 Output Total 1225 / 1225 600 / 900 300 / 900 Balance 841.667 / 1225.000 20 / -280 -300 / -280 Weight 52.1 kg Intake: IV 2066.667 / 2450.000 260 / 260 Oral 360 / 360 Output: Urine 1225 / 1225 600 / 900 300 / 900 Other: Urine Color Yellow Yellow Yellow Urine Appearance Clear Clear Clear Urine Odor None Normal Voiding Methods Toilet Toilet Toilet Data Completed and Pending Completed studies during hospitalization [Text1]: CTA chest: Stable small left pneumothorax.? Stable bilateral scattered patchy pulmonary infiltrates.? No evidence of pulmonary embolism. CXR: No visible pneumothorax.? Labs on day of discharge: Labs from last 24 hours 04/16/22 04/16/22 04/16/22 06:45 06:45 06:45 WBC 2.64 L RBC 3.11 L Hgb 9.4 L Hct 29.1 L MCV 94 MCH 30.2 MCHC 32.3 RDW 14.9 H Plt Count 229 MPV 9.9 Immature Gran % 0.0 Neutrophils % 88.0 Band Neutrophils % 1 Lymphocytes % 5.0 Monocytes % 6.0 Eosinophils % 0.0 Basophils % 0.0 Nucleated RBC % 0.0 Absolute Neutrophils 2.35 Absolute Lymphocytes 0.13 L Absolute Monocytes 0.16 Absolute Eosinophils 0.00 Absolute Basophils 0.00 RBC Morphology Normal Sodium Potassium Chloride Carbon Dioxide Anion Gap BUN Creatinine Est GFR (CKD-EPI 2020) Glucose Calcium Magnesium Iron 41 L TIBC 121 L Transferrin % Sat 34 Ferritin Vitamin B12 > 2000 H Folate > 20.0 H 04/16/22 06:45 WBC RBC Hgb Hct MCV MCH MCHC RDW Plt Count MPV Immature Gran % Neutrophils % Band Neutrophils % Lymphocytes % Monocytes % Eosinophils % Basophils % Nucleated RBC % Absolute Neutrophils Absolute Lymphocytes Absolute Monocytes Absolute Eosinophils Absolute Basophils RBC Morphology Sodium 143 Potassium 4.1 Chloride 107 Carbon Dioxide 28.2 Anion Gap 7.8 BUN 10 Creatinine 0.5 L Est GFR (CKD-EPI 2020) 103.38 Glucose 109 H Calcium 8.4 L Magnesium 1.8 Iron TIBC Transferrin % Sat Ferritin 699 H Vitamin B12 Folate 04/15/22 21:25 Blood Blood Culture - Pending 04/15/22 21:15 Blood Blood Culture - Pending Preliminary micro results at discharge 04/15/22 21:25 Blood Culture - Pending Blood 04/15/22 21:15 Blood Culture - Pending Blood PFSH All Active Problems (Updated 04/16/22 @ 17:00 by Manuela Santiago MD) Discharge planning issues (Acute) DVT prophylaxis (Acute) Elevated troponin (Acute) Sinus tachycardia (Acute) Chronic anemia (Acute) Hypomagnesemia (Acute) Pneumonia due to COVID-19 virus (Acute) Lymphoma (Acute) Medical History Asthma Bone metastasis Cigarette nicotine dependence Fibromyalgia Hemangioma of liver Hyperlipidemia Hypothyroidism pt states a medication did this to her, she DOES NOT have it.HE Major depression Stage Karley non Hodgkin's lymphoma Viral hepatitis B acute Vitamin D deficiency Surgical History Biopsy, Lymph Node excision ganglion cyst Hx of colonoscopy Hx of eye surgery Left Social History Smoking/Tobacco Use Status: Former Tobacco Use Quit Date: 04/11/22 Smoking risk assessment performed?: Yes Alcohol Intake: never Drug use: Never Substance use type: does not use Do you feel safe at home: Yes Do you feel safe in your relationship?: Yes Additional Social history: at bedside
[2022-04-16] MEDS: Dexamethasone 4 MG/ML VIAL 6 MG IVP (18:40)
[2022-04-16] MEDS: Heparin 500 UNITS/5 ML SYRINGE IV (18:47)
--- NOTE | 2022-04-17 16:54 | PDOC.CMDIS ---
- If Service Date Differs Date of service: 04/16/22 Time of Service: 17:34 LACE Index Scoring Tool - Questions: Length of Stay (in days): 1 Acuity (Admit via E.D.?): Yes Comorbidities: Chronic Pulmonary Disease (Asthma) E.D. Visits: 1 - Answers: Total Score: 7 Risk of Readmission: Low Risk Care Management Discharge Reason for Hospitalization: Pneumothorax on left, Pneumonia due to COVID-19 virus, Lymphoma Discharge Plan: Patrick is discharged home via private vehicle with family. New RX's are transmitted to [facility], patient is instructed to finish prednisone and paxlovid as prescribed and continue to self isolate for 10 days. Patrick will call the office of Malachi Germain NP to scheduled a hospital follow up appointment in 1-2 weeks. Pt will return to the hospital with any fever, bleeding chest pain, worsening shortness of breath. Cardia event recorder is ordered prior to discharge. No [facility] services are ordered. Patient/Family Education Needs: Review discharge instructions, limitations, medications and plan to follow up with community providers. Review ask me three.
--- NOTE | 2022-04-23 14:00 | RESPIRATORY ---
Addendum entered by Julio Robledo 04/28/22 10:10: Pt arrived in office today for me to help her with 30 day CER. I went over the instructions with her from start to finish, applied a newly charged monitor to her chest, and connected it to the phone while explaining the process. Pt also brought in a home SpO2 monitor that had been given to her on discharge from her last admission here. I opened the packaging and put a fresh battery in the monitor and explained that this was hers to keep, and she could use it whenever she wanted to check her oxygen and heart rate. I encouraged pt to try her best to finish out the 30 day monitoring as best as she can, and to reach out to the Respiratory or Cardiac office if she has any further concerns so we can support her with this. Original Note: RT was contacted today by Mela Silva of [employer] about concerns with 30-day cardiac event recorder reportedly not working according to the patient. I called the patient today to address the concerns over the phone. Patient stated that she could not tell if the monitor was working properly, so she took it off, and has not put another one on. Patient stated that she does not drive, so she would be unable to come in for assistance. I offered patient help and guidance over the phone, patient stated that she felt she would have trouble understanding instructions over the phone. Patient is scheduled to come to [facility] for a blood draw this coming 04/28/22 at 9:30 and would be willing to arrive earlier for in-person assistance. Patient and I agreed to meet at the Respiratory Therapy department at 9:00 on 04/28/22 to address the issues in hopes of her finishing out the prescribed 30-day monitoring.
== END 2022-04-16 18:55 | disposition home or self-care (01) | DRG 199 ==
LOC: ER 15:12 → MS 16:45
PROVIDERS: Admitting Provider Internal Medicine; Emergency Provider Emergency Medicine; Visit Provider Internal Medicine
DX: J93.9 Pneumothorax, unspecified (principal); J12.82 Pneumonia due to coronavirus disease 2019; U07.1 COVID-19; C82.18 Follicular lymphoma grade II, lymph nodes of multiple sites; I24.8 Other forms of acute ischemic heart disease; D64.9 Anemia, unspecified; R00.0 Tachycardia, unspecified; R09.02 Hypoxemia; Z66 Do not resuscitate; Z79.899 Other long term (current) drug therapy; E78.5 Hyperlipidemia, unspecified; K21.9 Gastro-esophageal reflux disease without esophagitis; E83.42 Hypomagnesemia; G89.29 Other chronic pain; J45.909 Unspecified asthma, uncomplicated; F17.210 Nicotine dependence, cigarettes, uncomplicated; M79.7 Fibromyalgia; D18.09 Hemangioma of other sites; E55.9 Vitamin D deficiency, unspecified; F32.9 Major depressive disorder, single episode, unspecified; E03.9 Hypothyroidism, unspecified; Z95.828 Presence of other vascular implants and grafts; Z86.19 Personal history of other infectious and parasitic diseases
CPT/HCPCS: 36415; 71275; 80048; 80053; 87040; 87637; 93005; 93270; 94618; 94640; 96361; 96365; 96366; 96368; 96375; 99222; 99285; J1650; 71045; 82607; 82728; 82746; 83540; 83550; 83735; 84484; 85025; 85610; 85730; 93010; 94667; 99223; 99239; J0248; J0696; J1100; J3490; J7620

== ENCOUNTER 2022-05-19 02:50 | Outpatient (RCR) | payer MEDICARE, SELFPAY ==
[2022-05-19] MEDS: Heparin 500 UNITS/5 ML SYRINGE IV (11:14)
[2022-05-19] MEDS: Normal Saline Flush 10 ML SYR IVP (11:14)
[2022-05-19 11:42] LABS: Abs Immature Grans 0.03 10^3/uL (0.0-0.06); Absolute Basophil Count 0.02 10^3/uL (0.0-0.2); Absolute Lymphocyte Count 0.39 10^3/uL (1.2-3.4); Absolute Neutrophil Count 0.84 10^3/uL (1.2-6.7); Basophils % 1.2; HCT 32.3 % (36.0-46.0); HGB 10.4 g/dL (11.2-15.7); Immature Grans % 1.8; Lymphocytes % 23.2; MCH 31.3 pg (27.0-33.0); MCHC 32.2 % (32.0-36.0); MCV 97 fL (80-95); MPV 8.8 fL (8.0-11.0); Monocytes % 17.9; Neutrophils % 49.9; Platelet Count 271 10^3/uL (130-400); RBC 3.32 10^6/uL (3.93-5.22); RDW 15.6 % (11.7-14.6); RDW-SD 55.7 fL
[2022-05-19 11:55] LABS: ALT 14 U/L (14-59); AST 16 U/L (15-37); Albumin 3.5 g/dL (3.4-5.0); Alkaline Phosphatase 67 U/L (46-116); Anion Gap 4.5 mmol/L (3-11); BUN 9 mg/dL (7-18); Bilirubin, Total 0.3 mg/dL (0.2-1.0); CO2 30.5 mmol/L (21.0-32.0); CREATININE 0.8 mg/dL (0.55-1.02); Calcium 8.9 mg/dL (8.5-10.1); Chloride 104 mmol/L (98-107); Estimated GFR 81.21 (mL/min/1.73m2); Glucose 82 mg/dL (74-106); LDH 224 U/L (81-234); Potassium 3.9 mmol/L (3.5-5.1); Sodium 139 mmol/L (136-145); Total Protein 6.3 g/dL (6.4-8.2)
[2022-05-19 12:12] LABS: Diff Comment Agrees w/ Instrument; RBC Morphology Normal; WBC 1.68 10^3/uL (4.4-10.8)
[2022-05-21 00:32] LABS: HBV DNA Detect/Quant, PCR Undetected IU/mL (Undetected)
== END 2022-05-24 23:59 | disposition home or self-care (01) ==
LOC: INF 02:50
PROVIDERS: Internal Medicine Hematology & Oncology; Visit Provider Nurse Practitioner Family
DX: C82.97 Follicular lymphoma, unspecified, spleen (principal); Z45.2 Encounter for adjustment and management of vascular access device
CPT/HCPCS: 36591; 80053; 87517; 83615; 85025

== ENCOUNTER 2022-05-21 10:22 | Outpatient (CLI) | payer MEDICARE, SELFPAY ==
--- NOTE | 2022-05-21 13:27 | W.CARDEVENT ---
Date of service: 05/21/22 Time of Service: 13:28 Cardiac Event Recorder Referring Provider:: Manuela Santiago Indications:: tachycardia Cardiac Event Note: This is a 30-day event monitor reportedly ordered for tachycardia Predominant rhythm was sinus with an average heart rate of 74. Minimum was 53, maximum 122 There was no atrial fibrillation Supraventricular tachycardia was noted that lasted approximately 2 minutes at a rate of 162 There were multiple runs of nonsustained ventricular tachycardia. The majority of these were less than 10 beats in duration There were no pauses greater than 3 seconds, no high-grade AV block There were no apparent patient symptoms
== END 2022-05-21 10:23 | disposition home or self-care (01) ==
LOC: CARDOPNVT 10:22
PROVIDERS: Visit Provider Internal Medicine Cardiovascular Disease
DX: I47.1 Supraventricular tachycardia (principal)
CPT/HCPCS: 93272

== ENCOUNTER 2022-06-16 02:24 | Outpatient (RCR) | payer MEDICARE, SELFPAY ==
[2022-06-16] MEDS: Normal Saline Flush 10 ML SYR IVP (10:00)
[2022-06-16] MEDS: Heparin 500 UNITS/5 ML SYRINGE IV (10:05)
[2022-06-16 10:29] LABS: Abs Immature Grans 0.19 10^3/uL (0.0-0.06); Absolute Basophil Count 0.01 10^3/uL (0.0-0.2); Absolute Eosinophil Count 0.01 10^3/uL (0.0-0.7); Absolute Lymphocyte Count 0.47 10^3/uL (1.2-3.4); Absolute Monocyte Count 0.48 10^3/uL (0.1-0.8); Basophils % 0.3; Eosinophils % 0.3; HCT 36.9 % (36.0-46.0); Lymphocytes % 12.3; MCHC 32.5 % (32.0-36.0); MCV 95 fL (80-95); MPV 9.5 fL (8.0-11.0); Monocytes % 12.6; Neutrophils % 69.5; Platelet Count 347 10^3/uL (130-400); RBC 3.87 10^6/uL (3.93-5.22); RDW 15.4 % (11.7-14.6); RDW-SD 54.1 fL; WBC 3.82 10^3/uL (4.4-10.8)
[2022-06-16 10:32] LABS: Absolute Neutrophil Count 2.65 10^3/uL (1.2-6.7)
== END 2022-06-23 23:59 | disposition home or self-care (01) ==
LOC: INF 02:24
PROVIDERS: Visit Provider Nurse Practitioner Family
DX: C82.97 Follicular lymphoma, unspecified, spleen (principal); Z45.2 Encounter for adjustment and management of vascular access device
CPT/HCPCS: 36591; 85025

== ENCOUNTER 2022-07-14 01:36 | Outpatient (RCR) | payer MEDICARE, SELFPAY ==
[2022-07-14] MEDS: Normal Saline Flush 10 ML SYR IVP (11:38)
[2022-07-14] MEDS: Heparin 500 UNITS/5 ML SYRINGE IV (11:41)
[2022-07-14 11:44] LABS: HCT 38.2 % (36.0-46.0); HGB 12.8 g/dL (11.2-15.7); MCH 31.6 pg (27.0-33.0); MCHC 33.5 % (32.0-36.0); MCV 94 fL (80-95); MPV 8.7 fL (8.0-11.0); Platelet Count 209 10^3/uL (130-400); RBC 4.05 10^6/uL (3.93-5.22); RDW 13.4 % (11.7-14.6); RDW-SD 47.1 fL
[2022-07-14 12:06] LABS: Absolute Basophil Count 0.03 10^3/uL (0.0-0.2); Absolute Eosinophil Count 0.24 10^3/uL (0.0-0.7); Absolute Lymphocyte Count 0.54 10^3/uL (1.2-3.4); Absolute Monocyte Count 0.22 10^3/uL (0.1-0.8); Absolute Neutrophil Count 0.69 10^3/uL (1.2-6.7); Atypical Lymphocytes % 11; Diff Comment Manual Differential; RBC Morphology Normal
[2022-07-14 12:09] LABS: WBC 1.73 10^3/uL (4.4-10.8)
== END 2022-07-24 23:59 | disposition home or self-care (01) ==
LOC: INF 01:36
PROVIDERS: Internal Medicine Hematology & Oncology; Visit Provider Nurse Practitioner Family
DX: C82.97 Follicular lymphoma, unspecified, spleen (principal); Z45.2 Encounter for adjustment and management of vascular access device
CPT/HCPCS: 36591; 85025

== ENCOUNTER 2022-09-08 01:28 | Outpatient (RCR) | payer MEDICARE, SELFPAY ==
[2022-09-08] MEDS: Normal Saline Flush 10 ML SYR IVP (08:35)
[2022-09-08] MEDS: Heparin 500 UNITS/5 ML SYRINGE IV (08:36)
[2022-09-08 08:48] LABS: Abs Immature Grans 0.02 10^3/uL (0.0-0.06); Absolute Basophil Count 0.04 10^3/uL (0.0-0.2); Absolute Eosinophil Count 0.26 10^3/uL (0.0-0.7); Absolute Lymphocyte Count 0.57 10^3/uL (1.2-3.4); Absolute Monocyte Count 0.33 10^3/uL (0.1-0.8); Absolute Neutrophil Count 1.05 10^3/uL (1.2-6.7); Basophils % 1.8; Eosinophils % 11.5; HCT 36.6 % (36.0-46.0); HGB 12.3 g/dL (11.2-15.7); Immature Grans % 0.9; Lymphocytes % 25.1; MCH 31.5 pg (27.0-33.0); MCHC 33.6 % (32.0-36.0); MCV 94 fL (80-95); MPV 8.5 fL (8.0-11.0); Monocytes % 14.5; Neutrophils % 46.2; Platelet Count 231 10^3/uL (130-400); RDW 14.3 % (11.7-14.6); WBC 2.27 10^3/uL (4.4-10.8)
[2022-09-08 09:17] LABS: ALT 21 U/L (14-59); AST 26 U/L (15-37); Albumin 3.8 g/dL (3.4-5.0); Alkaline Phosphatase 121 U/L (46-116); BUN 13 mg/dL (7-18); Bilirubin, Total 0.3 mg/dL (0.2-1.0); CREATININE 0.8 mg/dL (0.55-1.02); Calcium 8.7 mg/dL (8.5-10.1); Chloride 98 mmol/L (98-107); Estimated GFR 80.71 (mL/min/1.73m2); Glucose 99 mg/dL (74-106); LDH 281 U/L (81-234); Potassium 4.1 mmol/L (3.5-5.1); Sodium 136 mmol/L (136-145); Total Protein 6.5 g/dL (6.4-8.2)
== END 2022-09-21 23:59 | disposition home or self-care (01) ==
LOC: INF 01:28
PROVIDERS: Internal Medicine Hematology & Oncology; Visit Provider Nurse Practitioner Family
DX: C82.97 Follicular lymphoma, unspecified, spleen (principal); Z45.2 Encounter for adjustment and management of vascular access device
CPT/HCPCS: 36591; 80053; 83615; 85025

== ENCOUNTER 2022-12-01 01:05 | Outpatient (CLI) | payer MEDICARE, SELFPAY ==
[2022-12-01] MEDS: Barium Sulfate 2% W/V-Berry Smoothie 450 ML BTL 900 ML PO (11:11)
--- NOTE | 2022-12-01 13:00 | DI.CT_ITS ---
Exam(s) CT NECK CHEST ABD PEL W EXAM: CT NECK CHEST ABD PEL W CLINICAL HISTORY: FOLLICULAR LYMPHOMA, GRADE I, C82.00 TECHNIQUE: Imaging Protocol: Axial computed tomography images with coronal and sagittal reformatted images were created and reviewed CONTRAST MATERIAL: Intravenous: Omnipaque 350 Contrast volume:150 ml Oral: yes/900 mL p.o. barium COMPARISON: CT CT NECK CHEST ABD PEL W from 04/14/[address] CHEST PE CTA from 04/15/2022 FINDINGS: Neck: Parotids/submandibular/thyroid gland: Normal. Lymphadenopathy: There is scattered lymph nodes seen along the level one to level three all measurin g less than 8 mm in short axis diameter which are physiologic in nature. Carotids/Jugular: Within normal limits. Soft tissues: The floor the mouth is unremarkable. The epiglottis and vocal cords are within normal limits. Bones: No fracture. No lytic or blastic lesions. Chest: Tracheobronchial tree: Patent where visualized. Mediastinum and Tish: No dominant adenopathy or fluid collection. Pulmonary parenchyma: No consolidation or dominant measurable mass. Emphysematous changes greater in the upper lobes. No pneumothorax. Areas of peripheral scarring. Previously noted areas of bilatera l lower lobe patchy infiltrates are no longer present. Pleura: No effusion or pneumothorax. Heart/Aorta: Thoracic aorta non-dilated. Mild atherosclerotic changes. The heart is not dilated. Mi ld coronary artery calcifications are seen. Pulmonary arteries: No evidence of emboli. Bones: No fracture. No lytic or blastic lesions. Mild degenerative changes. Port over right upper chest with tip in superior vena cava. ABDOMEN: Liver: Normal density. Stable appearance of lytic lesions. Gallbladder and biliary tract: No radiodense calculus or dilation. Pancreas: Normal density, no abnormal calcifications or inflammatory process. Spleen: Normal. Kidneys: Normal size, contour and axis. No radiodense stones or obstructive uropathy. No suspicious m asses seen. Adrenal glands: No masses seen. Abdominal Aorta: Abdominal portion non-dilated. Atherosclerotic changes. Lymph nodes: No enlarged lymph nodes identified. PELVIS: Bladder: Symmetric distention, no gross wall thickening. Bowel: Large quantity of stool. No obstruction or bowel wall thickening. Peritoneal cavity: No ascites, collection or mesenteric inflammatory response. Reproductive: Retroverted uterus with fibroids. Bones: Stable mild compression of the superior endplate of L4. IMPRESSION: No evidence of adenopathy or metastatic disease in the neck, chest, abdomen or pelvis. Improvement of previously noted nodular lower lobe pulmonary infiltrates. Severe emphysema. No pneu mothorax. Stable hepatic lesions. RADIATION DOSE DELIVERED: 1,249.45mGy.cm Total DLP DATA REPOSITORY: All CT scans at this facility are submitted to the National Radiology Data Registry (NRDR) Dose Index Registry (DIR) with the [employer] (ACR). RADIATION OPTIMIZATION: All CT scans at this facility use at least one of these dose optimization te chniques: automated exposure control; mA and/or kV adjustment per patient size (includes targeted exa ms where dose is matched to clinical indication); or iterative reconstruction.
[2022-12-01] MEDS: Omnipaque 350 MG/ML 100 ML BTL IJ (13:27)
[2022-12-01] MEDS: Omnipaque 350 MG/ML 50 ML BTL IJ (13:29)
== END 2022-12-01 01:25 ==
PROVIDERS: Visit Provider Internal Medicine Hematology & Oncology
DX: C82.08 Follicular lymphoma grade I, lymph nodes of multiple sites (principal); J43.9 Emphysema, unspecified; K76.89 Other specified diseases of liver
CPT/HCPCS: 36591; 70491; 74177; 80053; 71260; 83615; 85025; J3490; Q9967

== ENCOUNTER 2022-12-08 02:22 | Outpatient (RCR) | payer MEDICARE, SELFPAY ==
[2022-12-01] MEDS: Normal Saline Flush 10 ML SYR IVP (10:26)
[2022-12-01] MEDS: Heparin 500 UNITS/5 ML SYRINGE IV (10:26)
[2022-12-01 10:34] LABS: Abs Immature Grans 0.02 10^3/uL (0.0-0.06); Absolute Basophil Count 0.04 10^3/uL (0.0-0.2); Absolute Eosinophil Count 0.16 10^3/uL (0.0-0.7); Absolute Lymphocyte Count 0.58 10^3/uL (1.2-3.4); Absolute Monocyte Count 0.32 10^3/uL (0.1-0.8); Absolute Neutrophil Count 1.06 10^3/uL (1.2-6.7); Basophils % 1.8; Eosinophils % 7.3; HGB 13.2 g/dL (11.2-15.7); Immature Grans % 0.9; Lymphocytes % 26.6; MCH 30.3 pg (27.0-33.0); MCV 92 fL (80-95); MPV 9.1 fL (8.0-11.0); Monocytes % 14.7; Neutrophils % 48.7; Platelet Count 323 10^3/uL (130-400); RBC 4.35 10^6/uL (3.93-5.22); RDW 13.2 % (11.7-14.6); RDW-SD 44.3 fL; WBC 2.18 10^3/uL (4.4-10.8)
[2022-12-01 10:49] LABS: ALT 21 U/L (14-59); AST 20 U/L (15-37); Albumin 3.6 g/dL (3.4-5.0); Alkaline Phosphatase 69 U/L (46-116); Anion Gap 4.5 mmol/L (3-11); BUN 14 mg/dL (7-18); Bilirubin, Total 0.4 mg/dL (0.2-1.0); CO2 30.5 mmol/L (21.0-32.0); CREATININE 0.7 mg/dL (0.55-1.02); Calcium 9.3 mg/dL (8.5-10.1); Chloride 102 mmol/L (98-107); Estimated GFR 94.73 (mL/min/1.73m2); Glucose 88 mg/dL (74-106); LDH 267 U/L (81-234); Potassium 4.4 mmol/L (3.5-5.1); Sodium 137 mmol/L (136-145); Total Protein 6.8 g/dL (6.4-8.2)
== END 2022-12-22 23:59 | disposition home or self-care (01) ==
LOC: INF 02:22
PROVIDERS: Visit Provider Nurse Practitioner Family
DX: C82.00 Follicular lymphoma grade I, unspecified site (principal); Z45.2 Encounter for adjustment and management of vascular access device
CPT/HCPCS: 36591; 80053; 83615; 85025

== ENCOUNTER 2023-02-18 15:28 | Emergency (ER) | payer MEDICARE, SELFPAY ==
[2023-02-18 15:31] VITALS: BP 140/88; PULSE 62; RESP 20; TEMP 36.4; O2SAT 96
[2023-02-18] MEDS: Fluorescein STRIPS 100/BOX 1 MG (16:22)
[2023-02-18] MEDS: Tetracaine 0.5% 4 ML BTL (16:22)
[2023-02-18] MEDS: Erythromycin Ophth Oint 3.5 GM TUBE (16:22)
--- NOTE | 2023-02-18 16:33 | ED.GENADUL_ITS ---
Discharge Plan Disposition Patient Disposition: Home Condition: Stable Discharge Details Clinical Impression: Abrasion, corneal Primary Care Provider: Mildred Santana ED Provider: Vernell Hoskins Home Meds and New Rx's Prescriptions: New erythromycin 5 mg/gram (0.5 %) Ointment 3.5 g OD TID Qty: 0 0RF Continued simvastatin 40 MG tablet 40 mg PO DAILY Hold Instructions: Resume on 04/28/22. oxycodone-acetaminophen 10-325 mg Tablet 1 tab PO QID Rx Instructions: takes with a 5mg oxycodone for a total of 15mg duloxetine [Cymbalta] 60 mg Capsule,Delayed Release(Dr/Ec) 60 mg PO DAILY naloxone [Narcan] 4 mg/actuation [place],Non-Aerosol 4 mg INTRANASAL Q2-3M PRN omeprazole 20 mg capsule,delayed release(DR/EC) 1 cap PO PRN PRN Patient Comments: TAKE ONE CAPSULE BY MOUTH EVERY DAY calcium 500 mg Tablet 500 mg PO DAILY oxycodone 5 mg Tablet 5 mg PO Q6H PRN cholecalciferol (vitamin D3) [Vitamin D3] 25 mcg (1,000 unit) Capsule 25 mcg PO DAILY albuterol sulfate [Ventolin HFA] 90 mcg/actuation Hfa Aerosol Inhaler 2 puff inhalation Q4H PRN PRN (Reason: shortness of breath or wheezing) Qty: 6.7 0RF ascorbic acid (vitamin C) [Vitamin C] 500 mg Tablet 1,000 mg PO BID Qty: 28 0RF benzonatate 100 mg Capsule 100 mg PO TID PRN PRNQty: 30 0RF zinc sulfate [Zinc-220] 50 mg zinc (220 mg) Capsule 50 mg PO DAILY Qty: 7 0RF cholecalciferol (vitamin D3) 25 mcg (1,000 unit) Tablet 2,000 units PO DAILY Qty: 10 0RF guaifenesin [Mucus Relief ER] 600 mg Tablet Extended Release 12hr 600 mg PO BID Qty: 30 0RF prednisone 20 mg tablet 40 mg PO DAILY Qty: 6 0RF metoprolol succinate [Toprol XL] 25 mg tablet extended release 24 hr 12.5 mg PO DAILY Qty: 30 0RF Paxlovid 300 mg (150 mg x 2)-100 mg tablets,dose pack See Rx Instructions .ROUTE .COMPLEX Qty: 30 0RF Rx Instructions: take TWO 150 mg tablets of nirmatrelvir with ONE 100 mg tablet of ritonavir twice daily for 5 days Discharge Instructions Instructions: Corneal Abrasion (ED) Additional Instructions: Warm moist compress to right eye 4 times daily and then instill erythromycin ointment as directed. See ophthalmology immediately for any visual changes or worsening symptoms Referrals: Mildred Santana [Primary Care Provider] - Medical Decision Making Tetracaine drops instilled with improvement in sensitivity, eye is stained using fluorescein with uptake noted on cornea at 2:00. Erythromycin ophthalmic ointment instilled and instructions given. Tube was dispensed to patient for home use. She is safe for discharge to home should follow-up outpatient with ophthalmology if needed HPI General Mode of arrival: ambulatory . Date/Time Provider Initiated Documentation: 02/18/23 15:35 . Limitations to Documentation: no limitations . Information obtained by: patient . HPI Narrative: Injury to right eye yesterday with dog that jumped up on her. She has had redness watering and pain States her tetanus is up-to-date Denies any other injuries Does wear contacts Related Data Home Medications Medication Instructions Recorded Confirmed simvastatin 40 mg tablet 40 mg PO DAILY 11/23/12 04/15/22 duloxetine 60 mg capsule,delayed 60 mg PO DAILY 05/01/20 04/15/22 release (Cymbalta) naloxone 4 mg/actuation nasal 4 mg intranasal Q2-3M PRN 05/01/20 04/16/22 spray (Narcan) oxycodone-acetaminophen 10 mg-325 1 tab PO QID 05/01/20 04/15/22 mg tablet omeprazole 20 mg capsule,delayed 1 cap PO PRN PRN 04/15/22 04/15/22 release albuterol sulfate 90 mcg/actuation 2 puff inhalation Q4H PRN PRN 04/16/22 aerosol inhaler (Ventolin HFA) shortness of breath or wheezing #6.7 grams ascorbic acid (vitamin C) 500 mg 1,000 mg PO BID #28 tabs 04/16/22 tablet (Vitamin C) benzonatate 100 mg capsule 100 mg PO TID PRN PRN #30 caps 04/16/22 calcium 500 mg tablet 500 mg PO DAILY 04/16/22 04/16/22 cholecalciferol (vitamin D3) 25 25 mcg PO DAILY 09/23/22 09/23/22 mcg (1,000 unit) capsule (Vitamin D3) cholecalciferol (vitamin D3) 25 2,000 units PO DAILY #10 tabs 04/16/22 mcg (1,000 unit) tablet guaifenesin 600 mg tablet, 600 mg PO BID #30 tabs 04/16/22 extended release 12 hr (Mucus Relief ER) metoprolol succinate 25 mg 12.5 mg PO DAILY #30 tabs 04/16/22 tablet,extended release 24 hr (Toprol XL) nirmatrelvir 300 mg (150 mg See Rx Instructions PO .COMPLEX 04/16/22 x2)-ritonavir 100 mg tablet,dose #30 dose pk pack (Paxlovid) oxycodone 5 mg tablet 5 mg PO Q6H PRN 04/16/22 04/16/22 prednisone 20 mg tablet 40 mg PO DAILY #6 tabs 04/16/22 zinc sulfate 50 mg zinc (220 mg) 50 mg PO DAILY #7 caps 04/16/22 capsule (Zinc-220) erythromycin 5 mg/gram (0.5 %) eye 3.5 g OD TID #0 grams 02/18/23 ointment Previous Rx's Medication Instructions Recorded albuterol sulfate 90 mcg/actuation 2 puff inhalation Q4H PRN PRN 04/16/22 aerosol inhaler (Ventolin HFA) shortness of breath or wheezing #6.7 grams ascorbic acid (vitamin C) 500 mg 1,000 mg PO BID #28 tabs 04/16/22 tablet (Vitamin C) benzonatate 100 mg capsule 100 mg PO TID PRN PRN #30 caps 04/16/22 cholecalciferol (vitamin D3) 25 2,000 units PO DAILY #10 tabs 04/16/22 mcg (1,000 unit) tablet guaifenesin 600 mg tablet, 600 mg PO BID #30 tabs 04/16/22 extended release 12 hr (Mucus Relief ER) metoprolol succinate 25 mg 12.5 mg PO DAILY #30 tabs 04/16/22 tablet,extended release 24 hr (Toprol XL) nirmatrelvir 300 mg (150 mg See Rx Instructions PO .COMPLEX 04/16/22 x2)-ritonavir 100 mg tablet,dose #30 dose pk pack (Paxlovid) prednisone 20 mg tablet 40 mg PO DAILY #6 tabs 04/16/22 zinc sulfate 50 mg zinc (220 mg) 50 mg PO DAILY #7 caps 04/16/22 capsule (Zinc-220) erythromycin 5 mg/gram (0.5 %) eye 3.5 g OD TID #0 grams 02/18/23 ointment Allergies Allergy/AdvReac Type Severity Reaction Status Date / Time lamotrigine Allergy Unknown Unknown Unverified 04/15/22 16:14 milnacipran [From Savella] Allergy Unknown Unknown Unverified 04/15/22 16:14 varenicline Allergy Unknown Other (See Unverified 04/15/22 16:14 Comment) General Stated Complaint: EyeProblem CHANDNI: 4 Review of Systems All systems reviewed & are unremarkable except as noted in HPI and below PFSH All Active Problems (Updated 02/18/23 @ 16:37 by Vernell Hoskins NP) Abrasion, corneal (Acute) Elevated troponin (Acute) Sinus tachycardia (Acute) Chronic anemia (Acute) Hypomagnesemia (Acute) Pneumonia due to COVID-19 virus (Acute) Lymphoma (Acute) Medical History Asthma Bone metastasis Cigarette nicotine dependence Fibromyalgia Hemangioma of liver Hyperlipidemia Hypothyroidism pt states a medication did this to her, she DOES NOT have it.HE Major depression Stage Karley non Hodgkin's lymphoma Viral hepatitis B acute Vitamin D deficiency Surgical History Biopsy, Lymph Node excision ganglion cyst Hx of colonoscopy Hx of eye surgery Left Social History Smoking/Tobacco Use Status: Former Tobacco Use Quit Date: 04/11/22 Smoking risk assessment performed?: Yes Alcohol Intake: never Drug use: Never Substance use type: does not use Do you feel safe at home: Yes Do you feel safe in your relationship?: Yes Additional Social history: at bedside Exam Eyes Eyelids: other (Minimal swelling to right upper eyelid with some bruising) Conjunctivae: conjunctival abnormality right conjunctival injection Sclera: scleral abnormality right scleral injection Cornea: fluorescein used (Uptake at 2:00) Pupils: PERRL EOM: EOM intact bilaterally Course Vital Signs Vital signs: Vital Signs Temperature 36.4 C L 02/18/23 15:31 Pulse 62 02/18/23 15:31 Respiratory Rate 20 02/18/23 15:31 Blood Pressure 140/88 02/18/23 15:31 Pulse Oximetry 96 02/18/23 15:31 Temperature 36.4 C L 02/18/23 15:31 Temperature Source Oral 02/18/23 15:31 Pulse 62 02/18/23 15:31 Respiratory Rate 20 02/18/23 15:31 Respiratory Effort Normal, Non-Labored 02/18/23 16:21 Blood Pressure 140/88 02/18/23 15:31 Blood Pressure Position Sitting 02/18/23 15:31 Pulse Oximetry 96 02/18/23 15:31 Oxygen Delivery Method Room Air 02/18/23 15:31 Oxygen Flow Rate 0 02/18/23 15:31
== END 2023-02-18 16:51 | disposition home or self-care (01) ==
PROVIDERS: Emergency Provider Nurse Practitioner Acute Care; PCP Nurse Practitioner Family
DX: S05.01XA Injury of conjunctiva and corneal abrasion without foreign body, right eye, initial encounter (principal); W55.03XA Scratched by cat, initial encounter
CPT/HCPCS: 99283; 99284

== ENCOUNTER 2023-03-02 02:33 | Outpatient (RCR) | payer MEDICARE, SELFPAY ==
[2023-03-02] MEDS: Normal Saline Flush 10 ML SYR IVP (12:23)
[2023-03-02] MEDS: Heparin 500 UNITS/5 ML SYRINGE IV (12:23)
[2023-03-02 12:43] LABS: Absolute Basophil Count 0.04 10^3/uL (0.0-0.2); HCT 40.2 % (36.0-46.0); HGB 13.5 g/dL (11.2-15.7); MCH 31.1 pg (27.0-33.0); MCHC 33.6 % (32.0-36.0); MCV 93 fL (80-95); MPV 9.4 fL (8.0-11.0); Platelet Count 247 10^3/uL (130-400); RBC 4.34 10^6/uL (3.93-5.22); RDW 14.1 % (11.7-14.6)
[2023-03-02 12:56] LABS: ALT 24 U/L (14-59); AST 30 U/L (15-37); Albumin 3.8 g/dL (3.4-5.0); Alkaline Phosphatase 59 U/L (46-116); Anion Gap 7.4 mmol/L (3-11); BUN 5 mg/dL (7-18); Bilirubin, Total 0.5 mg/dL (0.2-1.0); CO2 31.6 mmol/L (21.0-32.0); CREATININE 0.9 mg/dL (0.55-1.02); Calcium 9.2 mg/dL (8.5-10.1); Chloride 106 mmol/L (98-107); Estimated GFR 70.07 (mL/min/1.73m2); Glucose 98 mg/dL (74-106); LDH 330 U/L (81-234); Potassium 3.7 mmol/L (3.5-5.1); Sodium 145 mmol/L (136-145); Total Protein 6.9 g/dL (6.4-8.2)
[2023-03-02 13:09] LABS: Absolute Eosinophil Count 0.07 10^3/uL (0.0-0.7); Absolute Lymphocyte Count 0.57 10^3/uL (1.2-3.4); Absolute Monocyte Count 0.29 10^3/uL (0.1-0.8); Absolute Neutrophil Count 0.82 10^3/uL (1.2-6.7); Atypical Lymphocytes % 3; Diff Comment Manual Differential; RBC Morphology Normal
[2023-03-02 13:12] LABS: WBC 1.79 10^3/uL (4.4-10.8)
== END 2023-03-24 23:59 | disposition home or self-care (01) ==
LOC: INF 02:33
PROVIDERS: Internal Medicine Hematology & Oncology; PCP Nurse Practitioner Family; Visit Provider Nurse Practitioner Family
DX: C82.00 Follicular lymphoma grade I, unspecified site (principal); Z45.2 Encounter for adjustment and management of vascular access device
CPT/HCPCS: 36591; 80053; 83615; 85025

== ENCOUNTER 2023-05-31 00:52 | Outpatient (RCR) | payer MEDICARE, SELFPAY ==
[2023-05-31 08:54] LABS: Absolute Basophil Count 0.03 10^3/uL (0.0-0.2); Absolute Eosinophil Count 0.08 10^3/uL (0.0-0.7); Absolute Lymphocyte Count 0.91 10^3/uL (1.2-3.4); Absolute Monocyte Count 0.25 10^3/uL (0.1-0.8); Absolute Neutrophil Count 1.87 10^3/uL (1.2-6.7); Eosinophils % 2.5; HCT 38.2 % (36.0-46.0); HGB 12.6 g/dL (11.2-15.7); MCH 30.5 pg (27.0-33.0); MCV 93 fL (80-95); MPV 9.3 fL (8.0-11.0); Neutrophils % 59.5; Platelet Count 222 10^3/uL (130-400); RBC 4.13 10^6/uL (3.93-5.22); RDW 13.2 % (11.7-14.6); RDW-SD 45.1 fL; WBC 3.14 10^3/uL (4.4-10.8)
[2023-05-31] MEDS: Heparin 500 UNITS/5 ML SYRINGE IV (08:57)
[2023-05-31] MEDS: Normal Saline Flush 10 ML SYR IVP (08:57)
[2023-05-31 09:10] LABS: ALT 17 U/L (14-59); AST 17 U/L (15-37); Alkaline Phosphatase 67 U/L (46-116); Anion Gap 8.7 mmol/L (3-11); BUN 13 mg/dL (7-18); Bilirubin, Total 0.6 mg/dL (0.2-1.0); CO2 27.3 mmol/L (21.0-32.0); CREATININE 0.8 mg/dL (0.55-1.02); Calcium 9.5 mg/dL (8.5-10.1); Chloride 100 mmol/L (98-107); Estimated GFR 80.71 (mL/min/1.73m2); Glucose 100 mg/dL (74-106); LDH 179 U/L (81-234); Potassium 3.5 mmol/L (3.5-5.1); Sodium 136 mmol/L (136-145); Total Protein 6.8 g/dL (6.4-8.2)
== END 2023-06-23 23:59 | disposition home or self-care (01) ==
LOC: INF 00:52
PROVIDERS: PCP Nurse Practitioner Family; Visit Provider Internal Medicine Hematology & Oncology
DX: C82.00 Follicular lymphoma grade I, unspecified site (principal); Z45.2 Encounter for adjustment and management of vascular access device
CPT/HCPCS: 36591; 80053; 83615; 85025

== ENCOUNTER → 2023-06-27 08:58 | Outpatient (BNVA) | payer MEDICARE, SELFPAY | PROVIDERS: PCP Nurse Practitioner Family; Referring Provider Nurse Practitioner Family; Visit Provider Surgery | DX: C82.18 Follicular lymphoma grade II, lymph nodes of multiple sites (principal); Z45.2 Encounter for adjustment and management of vascular access device | CPT/HCPCS: 36590 ==

== ENCOUNTER 2023-06-29 13:26 | Outpatient (REF) | payer MEDICARE, SELFPAY ==
[2023-06-29 16:43] LABS: Abs Immature Grans 0.01 10^3/uL (0.0-0.06); Absolute Basophil Count 0.03 10^3/uL (0.0-0.2); Absolute Eosinophil Count 0.09 10^3/uL (0.0-0.7); Absolute Lymphocyte Count 0.63 10^3/uL (1.2-3.4); Absolute Monocyte Count 0.24 10^3/uL (0.1-0.8); Absolute Neutrophil Count 2.11 10^3/uL (1.2-6.7); Eosinophils % 2.9; HCT 41.4 % (36.0-46.0); HGB 13.6 g/dL (11.2-15.7); Immature Grans % 0.3; Lymphocytes % 20.3; MCH 30.3 pg (27.0-33.0); MCHC 32.9 % (32.0-36.0); MCV 92 fL (80-95); MPV 9.7 fL (8.0-11.0); Monocytes % 7.7; Neutrophils % 67.8; Platelet Count 268 10^3/uL (130-400); RBC 4.49 10^6/uL (3.93-5.22); RDW-SD 43.9 fL; WBC 3.11 10^3/uL (4.4-10.8)
[2023-06-29 17:23] LABS: ALT 13 U/L (14-59); AST 11 U/L (15-37); Albumin 3.7 g/dL (3.4-5.0); Alkaline Phosphatase 67 U/L (46-116); Anion Gap 8.1 mmol/L (3-11); BUN 13 mg/dL (7-18); CO2 30.9 mmol/L (21.0-32.0); CREATININE 0.8 mg/dL (0.55-1.02); Calcium 9.1 mg/dL (8.5-10.1); Calculated LDL 205 mg/dL (<100); Chloride 104 mmol/L (98-107); Cholesterol 300 mg/dL (<200); Estimated GFR 80.21 (mL/min/1.73m2); Folate 8.5 ng/mL (8.6-20.0); Glucose 87 mg/dL (74-106); HDL Cholesterol 86 mg/dL (40-60); Magnesium 1.7 mg/dL (1.8-2.4); Potassium 3.9 mmol/L (3.5-5.1); Sodium 143 mmol/L (136-145); Total Protein 6.3 g/dL (6.4-8.2); Triglyceride 46 mg/dL (<150)
[2023-06-29 17:42] LABS: Bilirubin, Total 0.4 mg/dL (0.2-1.0)
== END 2023-06-29 13:27 | disposition home or self-care (01) ==
LOC: NCHCN 13:26
PROVIDERS: PCP Nurse Practitioner Family; Visit Provider Nurse Practitioner Family
DX: R00.2 Palpitations (principal); E78.5 Hyperlipidemia, unspecified; E53.8 Deficiency of other specified B group vitamins; R25.2 Cramp and spasm
CPT/HCPCS: 80053; 80061; 82746; 83735; 85025

== ENCOUNTER 2023-09-28 12:23 | Outpatient (RCR) | payer MEDICARE, SELFPAY ==
[2023-09-28 13:14] LABS: Abs Immature Grans 0.01 10^3/uL (0.0-0.06); Absolute Basophil Count 0.02 10^3/uL (0.0-0.2); Absolute Eosinophil Count 0.04 10^3/uL (0.0-0.7); Absolute Monocyte Count 0.27 10^3/uL (0.1-0.8); Absolute Neutrophil Count 2.64 10^3/uL (1.2-6.7); Basophils % 0.5; HGB 12.9 g/dL (11.2-15.7); Immature Grans % 0.2; MCH 31.1 pg (27.0-33.0); MCHC 33.9 % (32.0-36.0); MCV 92 fL (80-95); MPV 9.3 fL (8.0-11.0); Monocytes % 6.6; Neutrophils % 64.7; Platelet Count 217 10^3/uL (130-400); RBC 4.15 10^6/uL (3.93-5.22); RDW 13.5 % (11.7-14.6); WBC 4.08 10^3/uL (4.4-10.8)
[2023-09-28 13:38] LABS: ALT 19 U/L (14-59); AST 22 U/L (15-37); Albumin 4.1 g/dL (3.4-5.0); Alkaline Phosphatase 49 U/L (46-116); Anion Gap 12.2 mmol/L (3-11); BUN 6 mg/dL (7-18); Bilirubin, Total 0.8 mg/dL (0.2-1.0); CO2 24.8 mmol/L (21.0-32.0); CREATININE 0.8 mg/dL (0.55-1.02); Chloride 98 mmol/L (98-107); Estimated GFR 80.21 (mL/min/1.73m2); Glucose 88 mg/dL (74-106); LDH 232 U/L (81-234); Potassium 3.5 mmol/L (3.5-5.1); Sodium 135 mmol/L (136-145); Total Protein 6.6 g/dL (6.4-8.2)
== END 2023-10-23 23:59 | disposition home or self-care (01) ==
LOC: INF 12:23
PROVIDERS: PCP Nurse Practitioner Family; Visit Provider Internal Medicine Hematology & Oncology
DX: C82.00 Follicular lymphoma grade I, unspecified site (principal)
CPT/HCPCS: 36415; 80053; 83615; 85025

== ENCOUNTER 2024-03-29 03:31 | Outpatient (CLI) | payer MEDICARE, SELFPAY ==
[2024-03-29 09:10] LABS: Abs Immature Grans 0.01 10^3/uL (0.0-0.06); Absolute Basophil Count 0.03 10^3/uL (0.0-0.2); Absolute Eosinophil Count 0.08 10^3/uL (0.0-0.7); Absolute Lymphocyte Count 1.74 10^3/uL (1.2-3.4); Absolute Monocyte Count 0.37 10^3/uL (0.1-0.8); Absolute Neutrophil Count 3.13 10^3/uL (1.2-6.7); Basophils % 0.6 %; Eosinophils % 1.5 %; HGB 12.8 g/dL (11.2-15.7); Immature Grans % 0.2 %; Lymphocytes % 32.5 %; MCH 31.6 pg (27.0-33.0); MCHC 32.8 % (32.0-36.0); MCV 96 fL (80-95); MPV 9.3 fL (8.0-11.0); Monocytes % 6.9 %; Neutrophils % 58.3 %; Platelet Count 196 10^3/uL (130-400); RBC 4.05 10^6/uL (3.93-5.22); RDW 13.2 % (11.7-14.6); RDW-SD 47.5 fL; WBC 5.36 10^3/uL (4.4-10.8)
[2024-03-29 09:29] LABS: ALT 39 U/L (14-59); AST 33 U/L (15-37); Albumin 3.9 g/dL (3.4-5.0); Alkaline Phosphatase 110 U/L (46-116); Anion Gap 4.4 mmol/L (3-11); BUN 13 mg/dL (7-18); Bilirubin, Total 0.37 mg/dL (0.2-1.0); CO2 32.6 mmol/L (21.0-32.0); CREATININE 0.8 mg/dL (0.55-1.02); Chloride 101 mmol/L (98-107); Estimated GFR 80.21 (mL/min/1.73m2); Glucose 92 mg/dL (74-106); LDH 211 U/L (81-234); Potassium 4.1 mmol/L (3.5-5.1); Sodium 138 mmol/L (136-145); Total Protein 6.6 g/dL (6.4-8.2)
== END 2024-03-29 03:32 | disposition home or self-care (01) ==
LOC: LBO 03:31
PROVIDERS: Nurse Practitioner Adult Health; Visit Provider Internal Medicine Hematology & Oncology
DX: C82.00 Follicular lymphoma grade I, unspecified site (principal)
CPT/HCPCS: 36415; 80053; 83615; 85025

== ENCOUNTER 2024-05-02 15:05 | Outpatient (REF) | payer MEDICARE, SELFPAY ==
[2024-05-02 16:16] LABS: Abs Immature Grans 0.01 10^3/uL (0.0-0.06); Absolute Basophil Count 0.03 10^3/uL (0.0-0.2); Absolute Eosinophil Count 0.09 10^3/uL (0.0-0.7); Absolute Lymphocyte Count 1.29 10^3/uL (1.2-3.4); Absolute Monocyte Count 0.27 10^3/uL (0.1-0.8); Absolute Neutrophil Count 1.39 10^3/uL (1.2-6.7); Eosinophils % 2.9 %; HCT 35.2 % (36.0-46.0); HGB 11.9 g/dL (11.2-15.7); Immature Grans % 0.3 %; Lymphocytes % 41.9 %; MCH 31.6 pg (27.0-33.0); MCHC 33.8 % (32.0-36.0); MCV 93 fL (80-95); MPV 10.1 fL (8.0-11.0); Monocytes % 8.8 %; Neutrophils % 45.1 %; Platelet Count 225 10^3/uL (130-400); RBC 3.77 10^6/uL (3.93-5.22); RDW 13.1 % (11.7-14.6); RDW-SD 44.6 fL; WBC 3.08 10^3/uL (4.4-10.8)
[2024-05-02 16:57] LABS: ALT 55 U/L (14-59); AST 35 U/L (15-37); Alkaline Phosphatase 75 U/L (46-116); BUN 8 mg/dL (7-18); Bilirubin, Total 0.56 mg/dL (0.2-1.0); CREATININE 0.9 mg/dL (0.55-1.02); Calculated LDL 105 mg/dL (<100); Chloride 102 mmol/L (98-107); Cholesterol 212 mg/dL (<200); Estimated GFR 69.64 (mL/min/1.73m2); Folate > 20.0 ng/mL (8.6-20.0); Glucose 76 mg/dL (74-106); HDL Cholesterol 99 mg/dL (40-60); Magnesium 1.9 mg/dL (1.8-2.4); Potassium 4.1 mmol/L (3.5-5.1); Sodium 142 mmol/L (136-145); Total Protein 6.3 g/dL (6.4-8.2); Triglyceride 44 mg/dL (<150); Vitamin B12 522 pg/mL (193-986); Vitamin D 25 Total 61.5 ng/mL (30-100)
== END 2024-05-02 15:06 | disposition home or self-care (01) ==
LOC: NCHCN 15:05
PROVIDERS: Visit Provider Nurse Practitioner Family
DX: E83.42 Hypomagnesemia
CPT/HCPCS: 80053; 80061; 82306; 82607; 82746; 83735; 85025

== ENCOUNTER 2024-09-20 11:31 | Inpatient (IN) | payer MEDICARE, SELFPAY ==
[2024-09-20] VITALS (44 sets, daily range): BP systolic 101–175; BP diastolic 69–119; PULSE 64–109; RESP 9–34; TEMP 36.6–36.7; O2SAT 2–100
--- NOTE | 2024-09-20 11:45 | RT.EKG_ITS ---
APPROVED REPORT Exam: Resting ECG Reason for Exam: CP RANDI Patient Location: E HR:97 bpm ECG Measurements Heart Rate 97 AXIS ID 120 P 81 QRSd 82 QRS 48 QT 353 T 37 QTc 450 Conclusion Sinus rhythm...normal P axis, V-rate 60- 99 I have reviewed and interpreted ECG and agree with software generated interpretation.
[2024-09-20 12:47] LABS: COVID-19 PCR Negative (Negative); Influenza A PCR Negative (Negative); Influenza B PCR Negative (Negative); RSV PCR Negative (Negative)
--- NOTE | 2024-09-20 13:00 | DI.RAD_ITS ---
Exam(s) XR PORTABLE CHEST AP EXAM: XR PORTABLE CHEST AP CT or E well-centered she has a 1 with the vaginal cancer history she has is invasive vaginal mass invading into rectum and then she has liver Mets lung Mets the gas so main assisted this is not a known a ovary iliac chain weighted L2 radially foci have CT AF fissure area by CLINICAL HISTORY: SOB, cough, eval for pneumonia TECHNIQUE: 2D digital imaging was performed. COMPARISON: CR XR PORTABLE CHEST AP from 04/16/[address] NECK CHEST ABD PEL W from 12/01/2022 FINDINGS: LUNGS: No focal infiltrate is visible there is marked coarsening of the interstitial markings through out both lungs, greater in the upper lobes. Findings appear more pronounced from the previous exam. No pleural abnormality seen. HEART: Normal size. AORTA: Normal diameter. BONES: Unremarkable for age. Soft tissues: Unremarkable. IMPRESSION: Increasing coarsening of pulmonary markings greater in the upper lobes could indicate worsening of fi brotic changes versus diffuse pneumonitis. DATA REPOSITORY: RADIATION DOSE DELIVERED:
[2024-09-20 13:05] LABS: Source Nasopharynx
[2024-09-20 13:18] LABS: Abs Immature Grans 0.05 10^3/uL (0.0-0.06); Absolute Eosinophil Count 0.01 10^3/uL (0.0-0.7); Absolute Lymphocyte Count 0.97 10^3/uL (1.2-3.4); Absolute Monocyte Count 0.51 10^3/uL (0.1-0.8); Basophils % 0.8 %; Eosinophils % 0.1 %; HCT 39.6 % (36.0-46.0); Immature Grans % 0.4 %; Lymphocytes % 8.1 %; MCH 30.4 pg (27.0-33.0); MCHC 32.8 % (32.0-36.0); MCV 93 fL (80-95); Monocytes % 4.3 %; Neutrophils % 86.3 %; Platelet Count 365 10^3/uL (130-400); RBC 4.27 10^6/uL (3.93-5.22); RDW 13.5 % (11.7-14.6); RDW-SD 46.2 fL; WBC 11.94 10^3/uL (4.4-10.8)
[2024-09-20] MEDS: Albuterol/Ipratropium 3 ML UPD VIAL UPD ×2 (13:18→22:15)
[2024-09-20] MEDS: methylPREDNISolone SUCC 125 MG VIAL IVP (13:18)
[2024-09-20 13:46] LABS: ALT 48 U/L (14-59); AST 50 U/L (15-37); Albumin 2.9 g/dL (3.4-5.0); Alkaline Phosphatase 150 U/L (46-116); Anion Gap 7.8 mmol/L (3-11); BUN 10 mg/dL (7-18); Bilirubin, Total 0.62 mg/dL (0.2-1.0); CO2 34.2 mmol/L (21.0-32.0); CREATININE 0.8 mg/dL (0.55-1.02); Calcium 10.1 mg/dL (8.5-10.1); Chloride 95 mmol/L (98-107); Estimated GFR 79.71 (mL/min/1.73m2); Glucose 116 mg/dL (74-106); Potassium 4.6 mmol/L (3.5-5.1); Sodium 137 mmol/L (136-145); Total Protein 7.5 g/dL (6.4-8.2); Troponin I 31 ng/L (<or=51)
[2024-09-20 13:52] LABS: NT-proBNP 3506 pg/mL (<300)
[2024-09-20 14:07] LABS: Prothrombin Time 10.4 sec (9.1-11.1)
--- NOTE | 2024-09-20 14:15 | DI.CT_ITS ---
Exam(s) CT CHEST PE CTA EXAM: CT CHEST PE CTA CLINICAL HISTORY: elevated dimer, eval for PE. TECHNIQUE: Imaging Protocol: Axial CT angiography was performed with multi-slice acquisition and mu lti-planar and/or 3D reconstructions. Lung Computer Aided Detection (CAD) was utilized. CONTRAST MATERIAL: Intravenous: Omnipaque 350 contrast volume:50 mL COMPARISON: CT CT CHEST PE CTA from 04/15/[address] NECK CHEST ABD PEL W from 12/01/2022 CR XR PORTABLE CHEST AP from 09/20/2024 FINDINGS: Tracheobronchial tree: Patent where visualized. There is bronchial wall thickening present. This can be seen with bronchitis. Pulmonary parenchyma: Moderately severe centrilobular emphysematous changes are present. There is pu lmonary fibrosis again seen. This has significantly progressed since the prior examination from 12/01. There is scattered opacities in the lungs and superimposed pneumonia cannot be excluded. Pulmonary Arteries: No evidence of filling defect to suggest pulmonary emboli. Mediastinum and Tish: No dominant adenopathy or fluid collection. The esophagus is unremarkable. Visualized thyroid gland: Unremarkable. Pleura: No effusion or pneumothorax. Heart: The heart is not dilated. Mild coronary artery calcification is present. No pericardial effus ion. Aorta: Thoracic aorta non-dilated. No evidence of dissection. The sclerotic calcification is present. Upper abdomen: Unremarkable. Soft tissues: Unremarkable. Bones: Within normal limits for the patient's age. IMPRESSION: 1. No evidence of pulmonary embolism, thoracic aortic dissection or aneurysm. 2. Scattered opacities in the lungs which may represent a pneumonia. Please correlate clinically. 3. Moderately severe centrilobular emphysematous and progressive pulmonary fibrosis. RADIATION DOSE DELIVERED: 45.38mGy.cm Total DLP DATA REPOSITORY: All CT scans at this facility are submitted to the National Radiology Data Registry (NRDR) Dose Index Registry (DIR) with the [employer] (ACR). RADIATION OPTIMIZATION: All CT scans at this facility use at least one of these dose optimization te chniques: automated exposure control; mA and/or kV adjustment per patient size (includes targeted exa ms where dose is matched to clinical indication); or iterative reconstruction.
[2024-09-20 14:19] LABS: D-Dimer 2028 ng/mlFEU (<500)
[2024-09-20 14:22] LABS: Troponin I 28 ng/L (<or=51)
[2024-09-20 14:24] LABS: PTT Activated 33.9 sec (20.6-30.2)
[2024-09-20] MEDS: Omnipaque 350 MG/ML 100 ML BTL 50 ML IJ (14:56)
[2024-09-20] MEDS: Normal Saline - Diluent 50 ML VIAL IJ (14:57)
--- NOTE | 2024-09-20 15:38 | W.ED.GENAD ---
Discharge Plan Disposition Patient Disposition: Admit to [facility] Condition: Good Discharge Details Chief Complaint: SOB Clinical Impression: Community acquired pneumonia, Acute respiratory distress, Hypoxemia, COPD exacerbation Primary Care Provider: Unknown,Unknown ED Provider: Dong Motley Home Meds and New Rx's Prescriptions: No Action simvastatin 40 MG tablet 40 mg PO DAILY oxycodone-acetaminophen 10-325 mg Tablet 1 tab PO QID Rx Instructions: takes with a 5mg oxycodone for a total of 15mg duloxetine [Cymbalta] 60 mg Capsule,Delayed Release(Dr/Ec) 60 mg PO DAILY naloxone [Narcan] 4 mg/actuation [place],Non-Aerosol 4 mg INTRANASAL Q2-3M PRN erythromycin 5 mg/gram (0.5 %) Ointment 3.5 g OD TID Qty: 0 0RF omeprazole 20 mg capsule,delayed release(DR/EC) 1 cap PO PRN PRN Patient Comments: TAKE ONE CAPSULE BY MOUTH EVERY DAY calcium 500 mg Tablet 500 mg PO DAILY oxycodone 5 mg Tablet 5 mg PO Q6H PRN cholecalciferol (vitamin D3) [Vitamin D3] 25 mcg (1,000 unit) Capsule 25 mcg PO DAILY albuterol sulfate [Ventolin HFA] 90 mcg/actuation Hfa Aerosol Inhaler 2 puff inhalation Q4H PRN PRN (Reason: shortness of breath or wheezing) Qty: 6.7 0RF ascorbic acid (vitamin C) [Vitamin C] 500 mg Tablet 1,000 mg PO BID Qty: 28 0RF benzonatate 100 mg Capsule 100 mg PO TID PRN PRNQty: 30 0RF zinc sulfate [Zinc-220] 50 mg zinc (220 mg) Capsule 50 mg PO DAILY Qty: 7 0RF cholecalciferol (vitamin D3) 25 mcg (1,000 unit) Tablet 2,000 units PO DAILY Qty: 10 0RF guaifenesin [Mucus Relief ER] 600 mg Tablet Extended Release 12hr 600 mg PO BID Qty: 30 0RF prednisone 20 mg tablet 40 mg PO DAILY Qty: 6 0RF metoprolol succinate [Toprol XL] 25 mg tablet extended release 24 hr 12.5 mg PO DAILY Qty: 30 0RF Paxlovid 300 mg (150 mg x 2)-100 mg tablets,dose pack See Rx Instructions .ROUTE .COMPLEX Qty: 30 0RF Rx Instructions: take TWO 150 mg tablets of nirmatrelvir with ONE 100 mg tablet of ritonavir twice daily for 5 days HPI General Date/Time Provider Initiated Documentation: 09/20/24 13:10. HPI Narrative: 69-year-old female with a past medical history of non-Hodgkin's lymphoma, tobacco use although she claims she quit 2 weeks ago, who presents with 1 month of chest tightness, shortness of breath, cough. Patient states that symptoms have gradually been getting worse. Cough is productive with yellow sputum. Upon evaluation here in the patient arrived her O2 saturations were in the 70s. She denies any normal oxygen use. She denies any hemoptysis. She denies any vomiting or diarrhea. No crushing or tearing sensation in her chest. Family history is positive for cardiac disease. No other complaints at this time. Related Data Home Medications ?Medication ?Instructions ?Recorded ?Confirmed simvastatin 40 mg tablet 40 mg PO DAILY 11/23/12 09/20/24 duloxetine 60 mg capsule,delayed 60 mg PO DAILY 05/01/20 09/20/24 release (Cymbalta) naloxone 4 mg/actuation nasal 4 mg intranasal Q2-3M PRN 05/01/20 09/20/24 spray (Narcan) oxycodone-acetaminophen 10 mg-325 1 tab PO QID 05/01/20 09/20/24 mg tablet omeprazole 20 mg capsule,delayed 1 cap PO PRN PRN 04/15/22 06/27/23 release albuterol sulfate 90 mcg/actuation 2 puff inhalation Q4H PRN PRN 04/16/22 09/20/24 aerosol inhaler (Ventolin HFA) shortness of breath or wheezing #6.7 grams ascorbic acid (vitamin C) 500 mg 1,000 mg (2 x 500 mg) PO BID #28 04/16/22 06/27/23 tablet (Vitamin C) tabs benzonatate 100 mg capsule 100 mg PO TID PRN PRN #30 caps 04/16/22 06/27/23 calcium 500 mg tablet 500 mg PO DAILY 04/16/22 06/27/23 cholecalciferol (vitamin D3) 25 25 mcg PO DAILY 04/16/22 06/27/23 mcg (1,000 unit) capsule (Vitamin D3) cholecalciferol (vitamin D3) 25 2,000 units PO DAILY #10 tabs 04/16/22 06/27/23 mcg (1,000 unit) tablet guaifenesin 600 mg tablet, 600 mg PO BID #30 tabs 04/16/22 06/27/23 extended release 12 hr (Mucus Relief ER) metoprolol succinate 25 mg 12.5 mg (1/2 x 25 mg) PO DAILY #30 04/16/22 06/27/23 tablet,extended release 24 hr tabs (Toprol XL) nirmatrelvir 300 mg (150 mg See Rx Instructions PO .COMPLEX 04/16/22 06/27/23 x2)-ritonavir 100 mg tablet,dose #30 dose pk pack (Paxlovid) oxycodone 5 mg tablet 5 mg PO Q6H PRN 04/16/22 06/27/23 prednisone 20 mg tablet 40 mg (2 x 20 mg) PO DAILY #6 tabs 04/16/22 06/27/23 zinc sulfate 50 mg zinc (220 mg) 50 mg PO DAILY #7 caps 04/16/22 06/27/23 capsule (Zinc-220) erythromycin 5 mg/gram (0.5 %) eye 3.5 g OD TID #0 grams 02/18/23 06/27/23 ointment Previous Rx's ?Medication ?Instructions ?Recorded albuterol sulfate 90 mcg/actuation 2 puff inhalation Q4H PRN PRN 04/16/22 aerosol inhaler (Ventolin HFA) shortness of breath or wheezing #6.7 grams ascorbic acid (vitamin C) 500 mg 1,000 mg (2 x 500 mg) PO BID #28 04/16/22 tablet (Vitamin C) tabs benzonatate 100 mg capsule 100 mg PO TID PRN PRN #30 caps 04/16/22 cholecalciferol (vitamin D3) 25 2,000 units PO DAILY #10 tabs 04/16/22 mcg (1,000 unit) tablet guaifenesin 600 mg tablet, 600 mg PO BID #30 tabs 04/16/22 extended release 12 hr (Mucus Relief ER) metoprolol succinate 25 mg 12.5 mg (1/2 x 25 mg) PO DAILY #30 04/16/22 tablet,extended release 24 hr tabs (Toprol XL) nirmatrelvir 300 mg (150 mg See Rx Instructions PO .COMPLEX 04/16/22 x2)-ritonavir 100 mg tablet,dose #30 dose pk pack (Paxlovid) prednisone 20 mg tablet 40 mg (2 x 20 mg) PO DAILY #6 tabs 04/16/22 zinc sulfate 50 mg zinc (220 mg) 50 mg PO DAILY #7 caps 04/16/22 capsule (Zinc-220) erythromycin 5 mg/gram (0.5 %) eye 3.5 g OD TID #0 grams 02/18/23 ointment Allergies Allergy/AdvReac Type Severity Reaction Status Date / Time lamotrigine Allergy Unknown Unknown Unverified 09/20/24 13:21 milnacipran (From Savella) Allergy Unknown Unknown Unverified 09/20/24 13:21 varenicline Allergy Unknown Other (See Unverified 09/20/24 13:21 Comment) General Stated Complaint: SOB CHANDNI: 2 Exam Narrative Exam Narrative: 1.Const: Well-nourished, Well-developed, appearing stated age 2.Eyes: PERRL, no conjunctival injection, and symmetrical lids. 3.ENT: Atraumatic external nose and ears. Dry MM. Neck: Symmetric, trachea midline, No thyromegaly. 4.CVS: +S1/S2, Peripheral pulses 2+ and equal in all extremities. Brisk capillary refill in all extremities. 5.RESP: Diminished respirations throughout. 6.GI: Soft, Nontender/Nondistended, No hepatosplenomegaly. No guarding or rebound. 7.MSK: Normocephalic/Atraumatic, Extremities w/o deformity or ttp No cyanosis or clubbing, Normal movement of all extremities. No calf tenderness, no pitting edema 8.Skin: Warm, Dry. No rashes or lesions. 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 Sensation grossly intact, no focal neurologic deficits. 10.Psych: (AAO) x3. Appropriate mood and affect Course Vital Signs Vital signs: Vital Signs Temperature 36.7 C 09/20/24 11:39 Pulse 83 09/20/24 11:39 Respiratory Rate 26 H 09/20/24 11:39 Blood Pressure 123/82 09/20/24 11:39 Pulse Oximetry 76 L 09/20/24 11:39 Temperature 36.7 C 09/20/24 11:39 Temperature Source Oral 09/20/24 11:39 Pulse 93 H 09/20/24 15:20 Pulse 88 09/20/24 15:31 Respiratory Rate 18 09/20/24 15:31 Respiratory Effort Short of Breath 09/20/24 13:22 Respiratory Pattern Tachypnea 09/20/24 13:22 Blood Pressure 170/98 H 09/20/24 15:30 Blood Pressure Mean 124 09/20/24 15:30 Blood Pressure Position Sitting 09/20/24 11:39 Pulse Oximetry 94 09/20/24 15:20 Oxygen Delivery Method Room Air 09/20/24 11:39 Oxygen Flow Rate 0 09/20/24 11:39 Pain Level 8 09/20/24 11:39 Lab/Test Results Lab/Test Results: Laboratory Tests Range/Units 09/20/24 09/20/24 09/20/24 11:40 13:12 13:51 WBC (4.4-10.8) 10^3/uL 11.94 H RBC (3.93-5.22) 10^6/uL 4.27 Hgb (11.2-15.7) g/dL 13.0 Hct (36.0-46.0) % 39.6 MCV (80-95) fL 93 MCH (27.0-33.0) pg 30.4 MCHC (32.0-36.0) % 32.8 RDW (11.7-14.6) % 13.5 Plt Count (130-400) 10^3/uL 365 MPV (8.0-11.0) fL 9.0 Immature Gran % % 0.4 Neutrophils % % 86.3 Lymphocytes % % 8.1 Monocytes % % 4.3 Eosinophils % % 0.1 Basophils % % 0.8 Nucleated RBC % (0.0-0.3) % 0.0 Absolute Neutrophils (1.2-6.7) 10^3/uL 10.30 H Absolute Lymphocytes (1.2-3.4) 10^3/uL 0.97 L Absolute Monocytes (0.1-0.8) 10^3/uL 0.51 Absolute Eosinophils (0.0-0.7) 10^3/uL 0.01 Absolute Basophils (0.0-0.2) 10^3/uL 0.10 PT (9.1-11.1) sec 10.4 INR (0.9-1.1) 1.0 APTT (20.6-30.2) sec 33.9 H D-Dimer (<500) ng/mlFEU 2027 H Sodium (136-145) mmol/L 137 Potassium (3.5-5.1) mmol/L 4.6 Chloride (98-107) mmol/L 95 L Carbon Dioxide (21.0-32.0) mmol/L 34.2 H Anion Gap (3-11) mmol/L 7.8 BUN (7-18) mg/dL 10 Creatinine (0.55-1.02) mg/dL 0.8 Est GFR (CKD-EPI 2020) (mL/min/1.73m2) 79.71 Glucose (74-106) mg/dL 116 H Calcium (8.5-10.1) mg/dL 10.1 Total Bilirubin (0.2-1.0) mg/dL 0.62 AST (15-37) U/L 50 H ALT (14-59) U/L 48 Alkaline Phosphatase (46-116) U/L 150 H Troponin I (<or=51) ng/L 31 28 NT-Pro-B Natriuret Pep (<300) pg/mL 3506 H Total Protein (6.4-8.2) g/dL 7.5 Albumin (3.4-5.0) g/dL 2.9 L COVID-19 Source Nasopharynx SARS-CoV-2 (PCR) (Negative) Negative Influenza Type A (PCR) (Negative) Negative Influenza Type B (PCR) (Negative) Negative RSV (PCR) (Negative) Negative Medical Decision Making 69-year-old female with a past medical history of non-Hodgkin's lymphoma, tobacco use although she claims she quit 2 weeks ago, who presents with 1 month of chest tightness, shortness of breath, cough. Patient states that symptoms have gradually been getting worse. Cough is productive with yellow sputum. Upon evaluation here in the patient arrived her O2 saturations were in the 70s. She denies any normal oxygen use. She denies any hemoptysis. She denies any vomiting or diarrhea. No crushing or tearing sensation in her chest. Family history is positive for cardiac disease. No other complaints at this time. Exam demonstrates diminished lung sounds, oxygen saturations were in the 70s on arrival, however with 2 to 3 L of oxygen she comes up to the low 90s. No pulse asymmetry for the radial pulses, symptoms inconsistent with dissection. No calf tenderness recent long trips surgeries or procedures to suggest PE. Differential includes cardiac etiology, less likely PE. Pneumonia and COPD certainly of concern. We will give breathing treatment, Solu-Medrol, will get chest x-ray, D-dimer, monitor closely and reassess. 5:30 PM Laboratory workup shows minimal white count 11.94, moderate left shift at 10.3, urinary D-dimer notably high at 2000. Electrolytes normal, troponins within normal limits, proBNP slightly high at 3500. COVID flu and RSV negative. CTA was ordered and shows no evidence of PE but there is evidence of pneumonia no scattered opacities, as well as emphysematous changes and pulmonary fibrosis. EKG shows no evidence of STEMI. Patient otherwise stable. Still does require 2 L of oxygen. Patient will be given ceftriaxone and doxycycline for pneumonia coverage. Recommend continued steroids breathing treatments and antibiotics. Because of her oxygen demand I do feel that she would benefit from inpatient admission. Patient agrees with plan. Discussed the case with the hospitalist Dr. Villatoro, he agrees with the assessment and plan. I have extensively reviewed the treatment plan with the patient. I have addressed all patient concerns at this time. I have also discussed the plan with the admitting physician and they agree with the current assessment and plan and have agreed to assume responsibility for the patient. All parties demonstrate verbal understanding and agreement with our assessment and plan at this time. The documentation in this chart was dictated using [employer] dictation software. Please excuse any dictation errors. FINDINGS: Tracheobronchial tree: Patent where visualized. There is bronchial wall thickening present. This can be seen with bronchitis. Pulmonary parenchyma: Moderately severe centrilobular emphysematous changes are present. There is pulmonary fibrosis again seen. This has significantly progressed since the prior examination from 12/01/2022. There is scattered opacities in the lungs and superimposed pneumonia cannot be excluded. Pulmonary Arteries: No evidence of filling defect to suggest pulmonary emboli. Mediastinum and Tish: No dominant adenopathy or fluid collection. The esophagus is unremarkable. Visualized thyroid gland: Unremarkable. Pleura: No effusion or pneumothorax. Heart: The heart is not dilated. Mild coronary artery calcification is present. No pericardial effusion. Aorta: Thoracic aorta non-dilated. No evidence of dissection. The sclerotic calcification is present. Upper abdomen: Unremarkable. Soft tissues: Unremarkable. Bones: Within normal limits for the patient's age. IMPRESSION: 1. No evidence of pulmonary embolism, thoracic aortic dissection or aneurysm. 2. Scattered opacities in the lungs which may represent a pneumonia. Please correlate clinically. 3. Moderately severe centrilobular emphysematous and progressive pulmonary fibrosis. Quality:SDOH Health Related Social Needs: No Data to Display PFSH All Active Problems (Updated 09/20/24 @ 17:32 by Dong Motley DO) COPD exacerbation (Acute) Hypoxemia (Acute) Acute respiratory distress (Acute) Community acquired pneumonia (Acute) Lymphoma in remission (Acute) Elevated troponin (Acute) Sinus tachycardia (Acute) Chronic anemia (Acute) Hypomagnesemia (Acute) Pneumonia due to COVID-19 virus (Acute) Lymphoma (Acute) Medical History Asthma Bone metastasis Cigarette nicotine dependence Fibromyalgia Hemangioma of liver Hyperlipidemia Hypothyroidism pt states a medication did this to her, she DOES NOT have it.HE Major depression Stage Karley non Hodgkin's lymphoma Viral hepatitis B acute Vitamin D deficiency Surgical History Biopsy, Lymph Node excision ganglion cyst Hx of colonoscopy Hx of eye surgery Left Social History Smoking/Tobacco Use Status: Former Tobacco Use Quit Date: 08/08/24 Smoking risk assessment performed?: Yes Alcohol Intake: never Drug use: Never Substance use type: does not use Housing: house Do you feel safe at home: Yes Do you feel safe in your relationship?: Yes Additional Social history: at bedside
[2024-09-20] MEDS: DOXYCYCLINE 100 MG in Normal Saline 100 ML IVPB ×2 (16:35→22:18)
[2024-09-20] MEDS: cefTRIAXone 2 GM/50 ML BAG IVPB (16:35)
[2024-09-20 17:12] LABS: Troponin I 27 ng/L (<or=51)
--- NOTE | 2024-09-20 17:20 | W.PC.ACHO ---
Registration Status: Primary Language: Preferred Language: ED Information & Data Chief Complaint SOB 09/20/24 15:39 Other Complaint Chest Pain 09/20/24 11:39 Triage Note Pt has had cough, feeling 09/20/24 11:39 weak with SOB X 1 month. Pt has SpO2 76 at rest on room air. Pt reports feeling confused at times and confirms this. Has been being treated for breathing problems. Complaining of CP as well. Medical / Surgical History (Last Reviewed 04/15/22 @ 16:39 by Merritt Egan MD) Viral hepatitis B acute Cigarette nicotine dependence Asthma Vitamin D deficiency Hemangioma of liver Stage Karley non Hodgkin's lymphoma Bone metastasis Hypothyroidism Hyperlipidemia Fibromyalgia Major depression (Last Reviewed 04/15/22 @ 16:39 by Merritt Egan MD) Hx of eye surgery Hx of colonoscopy excision ganglion cyst Biopsy, Lymph Node Most Recent Vital Signs Temperature 36.7 C 09/20/24 11:39 Temperature Source Oral 09/20/24 11:39 Pulse 79 09/20/24 17:01 Pulse 94 H 09/20/24 17:10 Respiratory Rate 20 09/20/24 17:10 Respiratory Effort Short of Breath 09/20/24 13:22 Respiratory Pattern Tachypnea 09/20/24 13:22 Blood Pressure 155/90 H 09/20/24 17:00 Blood Pressure Mean 112 09/20/24 17:00 Blood Pressure Position Sitting 09/20/24 11:39 Pulse Oximetry 94 09/20/24 17:01 Oxygen Delivery Method Room Air 09/20/24 11:39 Oxygen Flow Rate 0 09/20/24 11:39 Pain Level 8 09/20/24 11:39 Allergies lamotrigine Allergy (Unknown, Unverified 09/20/24 13:21) Unknown milnacipran (From Savella) Allergy (Unknown, Unverified 09/20/24 13:21) Unknown varenicline Allergy (Unknown, Unverified 09/20/24 13:21) Other (See Comment) pt. states I want to kill myself Precautions Isolation Standard precaution 09/20/24 13:22 Active Medications Generic Name Dose Route Start Last Admin Trade Name Freq PRN Reason Stop Dose Admin Iohexol 50 ml 09/20/24 15:00 09/20/24 14:56 Omnipaque 350 Mg/Ml 100 Ml Btl IJ 10/20/24 23:59 50 ml DIRECTED ABIMAEL Administration Sodium Chloride 50 ml 09/20/24 15:00 09/20/24 14:57 Normal Saline - Diluent 50 Ml Vial IJ 50 ml .FOR DI USE ABIMAEL Administration IV IV Catheter Type [Right Peripheral IV Antecubital] IV Catheter Gauge [Right 18 Antecubital] Diagnostics 09/20/24 09/20/24 09/20/24 Range/Units 16:50 13:51 13:12 WBC 11.94 H (4.4-10.8) 10^3/uL RBC 4.27 (3.93-5.22) 10^6/uL Hgb 13.0 (11.2-15.7) g/dL Hct 39.6 (36.0-46.0) % MCV 93 (80-95) fL MCH 30.4 (27.0-33.0) pg MCHC 32.8 (32.0-36.0) % RDW 13.5 (11.7-14.6) % Plt Count 365 (130-400) 10^3/uL MPV 9.0 (8.0-11.0) fL Immature Gran % 0.4 % Neutrophils % 86.3 % Lymphocytes % 8.1 % Monocytes % 4.3 % Eosinophils % 0.1 % Basophils % 0.8 % Nucleated RBC % 0.0 (0.0-0.3) % Absolute Neutrophils 10.30 H (1.2-6.7) 10^3/uL Absolute Lymphocytes 0.97 L (1.2-3.4) 10^3/uL Absolute Monocytes 0.51 (0.1-0.8) 10^3/uL Absolute Eosinophils 0.01 (0.0-0.7) 10^3/uL Absolute Basophils 0.10 (0.0-0.2) 10^3/uL PT 10.4 (9.1-11.1) sec INR 1.0 (0.9-1.1) APTT 33.9 H (20.6-30.2) sec D-Dimer 2028 H (<500) ng/mlFEU Sodium 137 (136-145) mmol/L Potassium 4.6 (3.5-5.1) mmol/L Chloride 95 L (98-107) mmol/L Carbon Dioxide 34.2 H (21.0-32.0) mmol/L Anion Gap 7.8 (3-11) mmol/L BUN 10 (7-18) mg/dL Creatinine 0.8 (0.55-1.02) mg/dL Est GFR (CKD-EPI 2020) 79.71 (mL/min/1.73m2) Glucose 116 H (74-106) mg/dL Calcium 10.1 (8.5-10.1) mg/dL Total Bilirubin 0.62 (0.2-1.0) mg/dL AST 50 H (15-37) U/L ALT 48 (14-59) U/L Alkaline Phosphatase 150 H (46-116) U/L Troponin I 27 28 31 (<or=51) ng/L NT-Pro-B Natriuret Pep 3506 H (<300) pg/mL Total Protein 7.5 (6.4-8.2) g/dL Albumin 2.9 L (3.4-5.0) g/dL COVID-19 Source SARS-CoV-2 (PCR) (Negative) Influenza Type A (PCR) (Negative) Influenza Type B (PCR) (Negative) RSV (PCR) (Negative) 09/20/24 Range/Units 11:40 WBC (4.4-10.8) 10^3/uL RBC (3.93-5.22) 10^6/uL Hgb (11.2-15.7) g/dL Hct (36.0-46.0) % MCV (80-95) fL MCH (27.0-33.0) pg MCHC (32.0-36.0) % RDW (11.7-14.6) % Plt Count (130-400) 10^3/uL MPV (8.0-11.0) fL Immature Gran % % Neutrophils % % Lymphocytes % % Monocytes % % Eosinophils % % Basophils % % Nucleated RBC % (0.0-0.3) % Absolute Neutrophils (1.2-6.7) 10^3/uL Absolute Lymphocytes (1.2-3.4) 10^3/uL Absolute Monocytes (0.1-0.8) 10^3/uL Absolute Eosinophils (0.0-0.7) 10^3/uL Absolute Basophils (0.0-0.2) 10^3/uL PT (9.1-11.1) sec INR (0.9-1.1) APTT (20.6-30.2) sec D-Dimer (<500) ng/mlFEU Sodium (136-145) mmol/L Potassium (3.5-5.1) mmol/L Chloride (98-107) mmol/L Carbon Dioxide (21.0-32.0) mmol/L Anion Gap (3-11) mmol/L BUN (7-18) mg/dL Creatinine (0.55-1.02) mg/dL Est GFR (CKD-EPI 2020) (mL/min/1.73m2) Glucose (74-106) mg/dL Calcium (8.5-10.1) mg/dL Total Bilirubin (0.2-1.0) mg/dL AST (15-37) U/L ALT (14-59) U/L Alkaline Phosphatase (46-116) U/L Troponin I (<or=51) ng/L NT-Pro-B Natriuret Pep (<300) pg/mL Total Protein (6.4-8.2) g/dL Albumin (3.4-5.0) g/dL COVID-19 Source Nasopharynx SARS-CoV-2 (PCR) Negative (Negative) Influenza Type A (PCR) Negative (Negative) Influenza Type B (PCR) Negative (Negative) RSV (PCR) Negative (Negative) Intake and Output - 24 Hour Total 09/20/24 11:31 thru 09/20/24 17:12 Intake Total 50 Balance 50 Weight 40.823 kg Intake: IV 50 Falls Risk Assessment History of Falls Previous History 09/20/24 13:22 Contributing Factors Confusion 09/20/24 13:22 Ambulatory Aids Independent 09/20/24 13:22 Tubes/Lines With any additional score 09/20/24 13:22 Gait Evaluation No gait disturbance 09/20/24 13:22 Cognition No cognitive impairment 09/20/24 13:22 Fall Total Score 38 09/20/24 13:22 Level of Risk Moderate Risk 09/20/24 13:22 v v v v v v v v v Sending and/or Receiving Nurses: Please use comment section below to note any information pertinent to the patient hand-off not included above. Information / Comments: Report received from: Called to get report at 1720, RN in ER unavailable and will call Med Surg back to give report when able.
--- NOTE | 2024-09-20 17:51 | W.PC.ACHO ---
Registration Status: Primary Language: Preferred Language: ED Information & Data Chief Complaint SOB 09/20/24 15:39 Other Complaint Chest Pain 09/20/24 11:39 Triage Note Pt has had cough, feeling 09/20/24 11:39 weak with SOB X 1 month. Pt has SpO2 76 at rest on room air. Pt reports feeling confused at times and confirms this. Has been being treated for breathing problems. Complaining of CP as well. Medical / Surgical History (Last Reviewed 04/15/22 @ 16:39 by Merritt Egan MD) Viral hepatitis B acute Cigarette nicotine dependence Asthma Vitamin D deficiency Hemangioma of liver Stage Karley non Hodgkin's lymphoma Bone metastasis Hypothyroidism Hyperlipidemia Fibromyalgia Major depression (Last Reviewed 04/15/22 @ 16:39 by Merritt Egan MD) Hx of eye surgery Hx of colonoscopy excision ganglion cyst Biopsy, Lymph Node Most Recent Vital Signs Temperature 36.7 C 09/20/24 11:39 Temperature Source Oral 09/20/24 11:39 Pulse 83 09/20/24 17:31 Pulse 82 09/20/24 17:31 Respiratory Rate 30 H 09/20/24 17:31 Respiratory Effort Short of Breath 09/20/24 13:22 Respiratory Pattern Tachypnea 09/20/24 13:22 Blood Pressure 101/69 09/20/24 17:31 Blood Pressure Mean 77 09/20/24 17:31 Blood Pressure Position Sitting 09/20/24 11:39 Pulse Oximetry 95 09/20/24 17:31 Oxygen Delivery Method Room Air 09/20/24 11:39 Oxygen Flow Rate 0 09/20/24 11:39 Pain Level 8 09/20/24 11:39 Allergies lamotrigine Allergy (Unknown, Unverified 09/20/24 13:21) Unknown milnacipran (From Savella) Allergy (Unknown, Unverified 09/20/24 13:21) Unknown varenicline Allergy (Unknown, Unverified 09/20/24 13:21) Other (See Comment) pt. states I want to kill myself Precautions Isolation Standard precaution 09/20/24 13:22 Active Medications Generic Name Dose Route Start Last Admin Trade Name Freq PRN Reason Stop Dose Admin Iohexol 50 ml 09/20/24 15:00 09/20/24 14:56 Omnipaque 350 Mg/Ml 100 Ml Btl IJ 10/20/24 23:59 50 ml DIRECTED ABIMAEL Administration Sodium Chloride 50 ml 09/20/24 15:00 09/20/24 14:57 Normal Saline - Diluent 50 Ml Vial IJ 50 ml .FOR DI USE ABIMAEL Administration IV IV Catheter Type [Right Peripheral IV Antecubital] IV Catheter Gauge [Right 18 Antecubital] Diet Orders Category Date Time Status Heart Healthy Eating [DIET] Nutrition 09/20/24 Dinner Active Diagnostics 09/20/24 09/20/24 09/20/24 Range/Units 16:50 13:51 13:12 WBC 11.94 H (4.4-10.8) 10^3/uL RBC 4.27 (3.93-5.22) 10^6/uL Hgb 13.0 (11.2-15.7) g/dL Hct 39.6 (36.0-46.0) % MCV 93 (80-95) fL MCH 30.4 (27.0-33.0) pg MCHC 32.8 (32.0-36.0) % RDW 13.5 (11.7-14.6) % Plt Count 365 (130-400) 10^3/uL MPV 9.0 (8.0-11.0) fL Immature Gran % 0.4 % Neutrophils % 86.3 % Lymphocytes % 8.1 % Monocytes % 4.3 % Eosinophils % 0.1 % Basophils % 0.8 % Nucleated RBC % 0.0 (0.0-0.3) % Absolute Neutrophils 10.30 H (1.2-6.7) 10^3/uL Absolute Lymphocytes 0.97 L (1.2-3.4) 10^3/uL Absolute Monocytes 0.51 (0.1-0.8) 10^3/uL Absolute Eosinophils 0.01 (0.0-0.7) 10^3/uL Absolute Basophils 0.10 (0.0-0.2) 10^3/uL PT 10.4 (9.1-11.1) sec INR 1.0 (0.9-1.1) APTT 33.9 H (20.6-30.2) sec D-Dimer 2028 H (<500) ng/mlFEU Sodium 137 (136-145) mmol/L Potassium 4.6 (3.5-5.1) mmol/L Chloride 95 L (98-107) mmol/L Carbon Dioxide 34.2 H (21.0-32.0) mmol/L Anion Gap 7.8 (3-11) mmol/L BUN 10 (7-18) mg/dL Creatinine 0.8 (0.55-1.02) mg/dL Est GFR (CKD-EPI 2020) 79.71 (mL/min/1.73m2) Glucose 116 H (74-106) mg/dL Calcium 10.1 (8.5-10.1) mg/dL Total Bilirubin 0.62 (0.2-1.0) mg/dL AST 50 H (15-37) U/L ALT 48 (14-59) U/L Alkaline Phosphatase 150 H (46-116) U/L Troponin I 27 28 31 (<or=51) ng/L NT-Pro-B Natriuret Pep 3506 H (<300) pg/mL Total Protein 7.5 (6.4-8.2) g/dL Albumin 2.9 L (3.4-5.0) g/dL COVID-19 Source SARS-CoV-2 (PCR) (Negative) Influenza Type A (PCR) (Negative) Influenza Type B (PCR) (Negative) RSV (PCR) (Negative) 09/20/24 Range/Units 11:40 WBC (4.4-10.8) 10^3/uL RBC (3.93-5.22) 10^6/uL Hgb (11.2-15.7) g/dL Hct (36.0-46.0) % MCV (80-95) fL MCH (27.0-33.0) pg MCHC (32.0-36.0) % RDW (11.7-14.6) % Plt Count (130-400) 10^3/uL MPV (8.0-11.0) fL Immature Gran % % Neutrophils % % Lymphocytes % % Monocytes % % Eosinophils % % Basophils % % Nucleated RBC % (0.0-0.3) % Absolute Neutrophils (1.2-6.7) 10^3/uL Absolute Lymphocytes (1.2-3.4) 10^3/uL Absolute Monocytes (0.1-0.8) 10^3/uL Absolute Eosinophils (0.0-0.7) 10^3/uL Absolute Basophils (0.0-0.2) 10^3/uL PT (9.1-11.1) sec INR (0.9-1.1) APTT (20.6-30.2) sec D-Dimer (<500) ng/mlFEU Sodium (136-145) mmol/L Potassium (3.5-5.1) mmol/L Chloride (98-107) mmol/L Carbon Dioxide (21.0-32.0) mmol/L Anion Gap (3-11) mmol/L BUN (7-18) mg/dL Creatinine (0.55-1.02) mg/dL Est GFR (CKD-EPI 2020) (mL/min/1.73m2) Glucose (74-106) mg/dL Calcium (8.5-10.1) mg/dL Total Bilirubin (0.2-1.0) mg/dL AST (15-37) U/L ALT (14-59) U/L Alkaline Phosphatase (46-116) U/L Troponin I (<or=51) ng/L NT-Pro-B Natriuret Pep (<300) pg/mL Total Protein (6.4-8.2) g/dL Albumin (3.4-5.0) g/dL COVID-19 Source Nasopharynx SARS-CoV-2 (PCR) Negative (Negative) Influenza Type A (PCR) Negative (Negative) Influenza Type B (PCR) Negative (Negative) RSV (PCR) Negative (Negative) Intake and Output - 24 Hour Total 09/20/24 11:31 thru 09/20/24 17:31 Intake Total 150 Balance 150 Weight 40.823 kg Intake: IV 150 Falls Risk Assessment History of Falls Previous History 09/20/24 13:22 Contributing Factors Confusion 09/20/24 13:22 Ambulatory Aids Independent 09/20/24 13:22 Tubes/Lines With any additional score 09/20/24 13:22 Gait Evaluation No gait disturbance 09/20/24 13:22 Cognition No cognitive impairment 09/20/24 13:22 Fall Total Score 38 09/20/24 13:22 Level of Risk Moderate Risk 09/20/24 13:22 v v v v v v v v v Sending and/or Receiving Nurses: Please use comment section below to note any information pertinent to the patient hand-off not included above. Information / Comments: A&O with confusion/delerium, unable to state what she takes for medications, PMH uncertain, seen mainly [place] [facility] [place] w/ SOB x1 month, Xray and CT show pneumonia, Abnormal labs, 18G RAC, Report received from: [facility] at [id number]
--- NOTE | 2024-09-20 20:14 | HPE_ITS ---
Date of service: 09/20/24 Time of Service: 20:14 Assessment and Plan Assessment and plan (1) Community acquired pneumonia: Status: Acute Assessment and plan: Continue treatment with ceftriaxone and IV doxycycline Acapella, Mucinex, benzonatate (2) Acute hypoxic respiratory failure: Status: Acute Assessment and plan: Now on oxygen -wean as tolerated to maintain sat 88-92% (3) COPD exacerbation: Status: Acute Assessment and plan: Will initiate prednisone burst and continue treatment with antibiotic as per pneumonia Discussed with Dr. Perry History of Present Illness History of Present Illness Chief Complaint: Chest tightness, shortness of breath, cough Narrative: This 69 years old female with past medical history of non-Hodgkin lymphoma, tobacco abuse claiming quitting about 2 weeks ago presented for evaluation of gradually worsening chest tightness, shortness of breath, productive cough with yellow/green sputum for the past month. On arrival to the ED the patient was hypoxic in the 70s and is not oxygen dependent at home. Workup in the ED was significant for WBC at 11.9, ANC at 10.3, D-dimer at 2028, AST at 50 and alk phos at 150. Upper respiratory viral panel was negative. Imaging was negative for pulmonary emboli, thoracic aortic dissection or aneurysm, positive findings of scattered opacities as well as moderately severe centrilobular emphysematous and progressive pulmonary fibrosis. The hospitalist was consulted and patient admitted to the medical surgical floor for evaluation and management of currently acquired pneumonia. In the ED patient was treated with IV ceftriaxone and IV doxycycline. The patient confirmed DNR/DNI status. The patient denied headache, chest pain, nausea, vomiting, diarrhea, constipation, or genitourinary symptoms. The patient reported fevers, chills, sweats, dizziness, productive cough of green to yellow sputum. Review of Systems All systems reviewed & are unremarkable except as noted in HPI and below PFSH All Active Problems (Updated 09/20/24 @ 20:25 by Yanira Matt APRN) Acute hypoxic respiratory failure (Acute) COPD exacerbation (Acute) Hypoxemia (Acute) Acute respiratory distress (Acute) Community acquired pneumonia (Acute) Lymphoma in remission (Acute) Elevated troponin (Acute) Sinus tachycardia (Acute) Chronic anemia (Acute) Hypomagnesemia (Acute) Pneumonia due to COVID-19 virus (Acute) Lymphoma (Acute) Medical History Asthma Bone metastasis Cigarette nicotine dependence Fibromyalgia Hemangioma of liver Hyperlipidemia Hypothyroidism pt states a medication did this to her, she DOES NOT have it.HE Major depression Stage Karley non Hodgkin's lymphoma Viral hepatitis B acute Vitamin D deficiency Surgical History Biopsy, Lymph Node excision ganglion cyst Hx of colonoscopy Hx of eye surgery Left Social History Smoking/Tobacco Use Status: Former Tobacco Use Quit Date: 08/08/24 Smoking risk assessment performed?: Yes Alcohol Intake: never Drug use: Never Substance use type: does not use Housing: house Do you feel safe at home: Yes Do you feel safe in your relationship?: Yes Additional Social history: at bedside Meds Allergies and Home Medications Allergies Allergy/AdvReac Type Severity Reaction Status Date / Time lamotrigine Allergy Unknown Unknown Unverified 09/20/24 13:21 milnacipran (From Savella) Allergy Unknown Unknown Unverified 09/20/24 13:21 varenicline Allergy Unknown Other (See Unverified 09/20/24 13:21 Comment) Home Medications ?Medication ?Instructions ?Recorded ?Confirmed ?Type simvastatin 40 mg tablet 40 mg PO DAILY 11/23/12 09/20/24 History duloxetine 60 mg capsule,delayed 60 mg PO DAILY 05/01/20 09/20/24 History release (Cymbalta) naloxone 4 mg/actuation nasal 4 mg intranasal Q2-3M PRN 05/01/20 09/20/24 History spray (Narcan) oxycodone-acetaminophen 10 mg-325 1 tab PO QID 05/01/20 09/20/24 History mg tablet omeprazole 20 mg capsule,delayed 1 cap PO PRN PRN 04/15/22 06/27/23 History release albuterol sulfate 90 mcg/actuation 2 puff inhalation Q4H PRN PRN 04/16/22 09/20/24 Rx aerosol inhaler (Ventolin HFA) shortness of breath or wheezing #6.7 grams ascorbic acid (vitamin C) 500 mg 1,000 mg (2 x 500 mg) PO BID #28 04/16/22 06/27/23 Rx tablet (Vitamin C) tabs benzonatate 100 mg capsule 100 mg PO TID PRN PRN #30 caps 04/16/22 06/27/23 Rx calcium 500 mg tablet 500 mg PO DAILY 04/16/22 06/27/23 History cholecalciferol (vitamin D3) 25 25 mcg PO DAILY 04/16/22 06/27/23 History mcg (1,000 unit) capsule (Vitamin D3) cholecalciferol (vitamin D3) 25 2,000 units PO DAILY #10 tabs 04/16/22 06/27/23 Rx mcg (1,000 unit) tablet guaifenesin 600 mg tablet, 600 mg PO BID #30 tabs 04/16/22 06/27/23 Rx extended release 12 hr (Mucus Relief ER) metoprolol succinate 25 mg 12.5 mg (1/2 x 25 mg) PO DAILY #30 04/16/22 06/27/23 Rx tablet,extended release 24 hr tabs (Toprol XL) nirmatrelvir 300 mg (150 mg See Rx Instructions PO .COMPLEX 04/16/22 06/27/23 Rx x2)-ritonavir 100 mg tablet,dose #30 dose pk pack (Paxlovid) oxycodone 5 mg tablet 5 mg PO Q6H PRN 04/16/22 06/27/23 History prednisone 20 mg tablet 40 mg (2 x 20 mg) PO DAILY #6 tabs 04/16/22 06/27/23 Rx zinc sulfate 50 mg zinc (220 mg) 50 mg PO DAILY #7 caps 04/16/22 06/27/23 Rx capsule (Zinc-220) erythromycin 5 mg/gram (0.5 %) eye 3.5 g OD TID #0 grams 02/18/23 06/27/23 Rx ointment Exam Narrative Exam Narrative: Alert and x 3, nonfocal, coarse breath sounds with scattered rhonchi, no wheezing , S1-S2, regular, no murmur, positive pulses to all 4 extremities, abdomen is nondistended, soft nontender , no CVA tenderness, moves all 4 extremities Results Labs 09/20/24 13:12 09/20/24 13:12 Labs: Laboratory Results - last 24 hr 09/20/24 09/20/24 09/20/24 11:40 13:12 13:51 WBC 11.94 H RBC 4.27 Hgb 13.0 Hct 39.6 MCV 93 MCH 30.4 MCHC 32.8 RDW 13.5 Plt Count 365 MPV 9.0 Immature Gran % 0.4 Neutrophils % 86.3 Lymphocytes % 8.1 Monocytes % 4.3 Eosinophils % 0.1 Basophils % 0.8 Nucleated RBC % 0.0 Absolute Neutrophils 10.30 H Absolute Lymphocytes 0.97 L Absolute Monocytes 0.51 Absolute Eosinophils 0.01 Absolute Basophils 0.10 PT 10.4 INR 1.0 APTT 33.9 H D-Dimer 2028 H Sodium 137 Potassium 4.6 Chloride 95 L Carbon Dioxide 34.2 H Anion Gap 7.8 BUN 10 Creatinine 0.8 Est GFR (CKD-EPI 2020) 79.71 Glucose 116 H Calcium 10.1 Total Bilirubin 0.62 AST 50 H ALT 48 Alkaline Phosphatase 150 H Troponin I 31 28 NT-Pro-B Natriuret Pep 3506 H Total Protein 7.5 Albumin 2.9 L COVID-19 Source Nasopharynx SARS-CoV-2 (PCR) Negative Influenza Type A (PCR) Negative Influenza Type B (PCR) Negative RSV (PCR) Negative 09/20/24 16:50 WBC RBC Hgb Hct MCV MCH MCHC RDW Plt Count MPV Immature Gran % Neutrophils % Lymphocytes % Monocytes % Eosinophils % Basophils % Nucleated RBC % Absolute Neutrophils Absolute Lymphocytes Absolute Monocytes Absolute Eosinophils Absolute Basophils PT INR APTT D-Dimer Sodium Potassium Chloride Carbon Dioxide Anion Gap BUN Creatinine Est GFR (CKD-EPI 2020) Glucose Calcium Total Bilirubin AST ALT Alkaline Phosphatase Troponin I 27 NT-Pro-B Natriuret Pep Total Protein Albumin COVID-19 Source SARS-CoV-2 (PCR) Influenza Type A (PCR) Influenza Type B (PCR) RSV (PCR) Last Vital Signs Temp 36.6 C 09/20/24 18:07 Pulse 77 09/20/24 18:07 Resp 28 H 09/20/24 18:07 BP 148/89 H 09/20/24 18:07 Pulse Ox 95 09/20/24 18:07 Time Spent Time spent with Patient: >75 minutes Time was spent: preparing to see the patient(eg.review tests), obtaining and/or reviewing separately otained hiistory, ordering medications,tests, procedures, referring, communicating with other health summer child caregiver, indepentently interpreting results, counseling the patient and care coordination
[2024-09-20] MEDS: oxyCODONE 10 MG TAB PO (22:12)
[2024-09-20] MEDS: Acetaminophen 325 MG TAB PO (22:14)
[2024-09-20] MEDS: Enoxaparin 30 MG/0.3 ML SYR SC (22:22)
[2024-09-21] VITALS (12 sets, daily range): BP systolic 145–168; BP diastolic 95–106; PULSE 56–98; RESP 2–20; TEMP 36.7–37; O2SAT 89–99
[2024-09-21] MEDS: Albuterol/Ipratropium 3 ML UPD VIAL UPD ×4 (04:31→20:10)
[2024-09-21] MEDS: Acetaminophen 325 MG TAB PO ×3 (04:32→18:01)
[2024-09-21] MEDS: oxyCODONE 10 MG TAB PO ×3 (04:32→18:01)
[2024-09-21 06:25] LABS: Abs Immature Grans 0.03 10^3/uL (0.0-0.06); Absolute Basophil Count 0.04 10^3/uL (0.0-0.2); Absolute Lymphocyte Count 0.67 10^3/uL (1.2-3.4); Absolute Monocyte Count 0.15 10^3/uL (0.1-0.8); Absolute Neutrophil Count 6.66 10^3/uL (1.2-6.7); Basophils % 0.5 %; HCT 36.7 % (36.0-46.0); HGB 12.3 g/dL (11.2-15.7); Immature Grans % 0.4 %; Lymphocytes % 8.9 %; MCH 30.8 pg (27.0-33.0); MCHC 33.5 % (32.0-36.0); MCV 92 fL (80-95); MPV 9.1 fL (8.0-11.0); Neutrophils % 88.2 %; Platelet Count 352 10^3/uL (130-400); RBC 3.99 10^6/uL (3.93-5.22); RDW 13.3 % (11.7-14.6); RDW-SD 45.8 fL; WBC 7.55 10^3/uL (4.4-10.8)
[2024-09-21 06:39] LABS: Anion Gap 6.5 mmol/L (3-11); BUN 9 mg/dL (7-18); CO2 32.5 mmol/L (21.0-32.0); CREATININE 0.6 mg/dL (0.55-1.02); Calcium 9.7 mg/dL (8.5-10.1); Chloride 97 mmol/L (98-107); Glucose 112 mg/dL (74-106); Potassium 3.9 mmol/L (3.5-5.1); Sodium 136 mmol/L (136-145)
[2024-09-21] MEDS: predniSONE 20 MG TAB 60 MG PO (08:20)
[2024-09-21] MEDS: Cholecalciferol (Vitamin D3) 1,000 UNIT TAB 2000 UNITS PO (08:20)
[2024-09-21] MEDS: guaiFENesin 600 MG TABCR PO ×2 (08:20→20:57)
[2024-09-21] MEDS: DULoxetine 30 MG CAP 60 MG PO (08:21)
[2024-09-21] MEDS: Ascorbic Acid 500 MG TAB 1000 MG PO ×2 (08:21→20:57)
[2024-09-21] MEDS: Simvastatin 40 MG TAB PO (08:21)
[2024-09-21] MEDS: Metoprolol CR 25 MG TABCR 12.5 MG PO (08:22)
--- NOTE | 2024-09-21 09:51 | PDOC.CMIN ---
Date of service: 09/21/24 Time of Service: 09:51 Care Management Initial Assmt Initial Assessment Reason for Hospitalization: community acquired pneumonia Functional Status/Living Situation Patient Presentation: Yanira presented to the ED yesterday afternoon with c/o chest tightness, cough and shortness of breath. On arrival to the ER, her sats were in the 70s. Yanira is on RA at baseline. She was diagnosed with pneumonia. Yanira was sitting up in the bed when CM met with her today. She was wearing 2.5L O2. She got out of bed for a short moment, and became quite short of breath from that minimal exertion. Yanira was very pleasant. She stated that her is also sick, but not as bad off as her. 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.) Instrumental Activities of Daily Living (ADLs): Independent Activities/Hobbies/SocialSupport: likes to sew and read Medications Medication Management: Issues/Barriers (has meds delivered, and sometimes they don't come on time.) Advance Directives Advance Directives: Do you have an Advance Directive: Y 08/25/15 09:37 AD On File at [facility]: Y 08/25/15 09:37 Date Asked 09/20/24 09/20/24 11:42 AD Date Reviewed 09/20/24 09/20/24 12:00 COLST On File at [facility] COLST Date Scanned Comment: , Fred, is Yanira's HCA Code Status Resuscitation Status DNR/DNI Insurance Coverage/Financial Issues Insurance: Medicare Part A & B Care Team Visit Care Team Role Provider Type Unknown Unknown Primary Care Provider STAFF PHYSICIAN Dong Motley DO Emergency Provider [facility] STAFF PHYSICIAN Don Perry DO Admit Provider [facility] STAFF PHYSICIAN Attending Provider Other: PCP is Mildred Santana, access notified Discharge Potential Discharge Needs: PCP F/U Appt Anticipated Barriers to Discharge: None Identified Patient/Family Education Needs: Review discharge instructions, discuss Ask Me Three Transportation: Private vehicle (with Fred) Plan: Anticipate that Yanira will discharge home, when medically stable, with no new services. She will f/u with her PCP and continue per her plan of care. Yanira will tranpsort home in a private car with her . Social Determinants of Health Screening Social Determinants of Health last assessed: 09/21/24 Will the Patient Participate in the Screening?: Yes Do you worry about having a steady place to live?: no Problems where you live: no known problems In the past 12 months, have you had to go without electric, gas, oil or water in your home?: no Have you or anyone in your house had to go without enough food to eat?: no Has lack of transportation kept you from medical appointments or from doing things needed for daily living?: no Has anyone in your life made you feel unsafe or unsupported?: no How hard is it for you to pay for the very basics like food, housing, medical care, and heating? Would you say it is:: Not hard at all Do you want help finding or keeping work or a job?: I do not need or want help If for any reason you need help with day-to-day activities such as bathing, preparing meals, shopping, managing finances, etc., do you get the help you need?: I don?t need any help (had been recorded as I need a lot more help, Yanira declined this to and stated that she and her are doing fine) How often do you feel lonely or isolated from those around you?: Never Do you speak a language other than Greenlandic at home?: No Does the patient want assistance with any of the above?: No PFSH All Active Problems (Updated 09/21/24 @ 10:50 by Yanira Matt APRN) Nicotine dependence (Acute) Acute hypoxic respiratory failure (Acute) COPD exacerbation (Acute) Hypoxemia (Acute) Acute respiratory distress (Acute) Community acquired pneumonia (Acute) Lymphoma in remission (Acute) Elevated troponin (Acute) Sinus tachycardia (Acute) Chronic anemia (Acute) Hypomagnesemia (Acute) Pneumonia due to COVID-19 virus (Acute) Lymphoma (Acute) Medical History Asthma Bone metastasis Cigarette nicotine dependence Fibromyalgia Hemangioma of liver Hyperlipidemia Hypothyroidism pt states a medication did this to her, she DOES NOT have it.HE Major depression Stage Karley non Hodgkin's lymphoma Viral hepatitis B acute Vitamin D deficiency Surgical History Biopsy, Lymph Node excision ganglion cyst Hx of colonoscopy Hx of eye surgery Left Social History Smoking/Tobacco Use Status: Former Tobacco Use Quit Date: 08/08/24 Smoking risk assessment performed?: Yes Alcohol Intake: never Drug use: Never Substance use type: does not use Housing: house Do you feel safe at home: Yes Do you feel safe in your relationship?: Yes Additional Social history: at bedside Readmission Within the Past 30 Days Yes or No: No
--- NOTE | 2024-09-21 10:00 | TELEP.MEDREC ---
Date of service: 09/21/24 Time of Service: 10:[address] [facility] Allergies Allergies: lamotrigine Allergy (Unknown, Unverified 09/20/24 13:21) Unknown milnacipran (From Savella) Allergy (Unknown, Unverified 09/20/24 13:21) Unknown varenicline Allergy (Unknown, Unverified 09/20/24 13:21) Other (See Comment) Interview Person Interviewed: Pharmacist, [facility] [phone] Quality Quality of Interview/Accuracy of Medication List: Good Sources Sources used to compile medication list: [employer] Medication List and Retail Pharmacy Changes made to Home Medication List: ADDITIONS: Folic Acid Trazodone Potassium MagOx Flonase Duoneb Montelukast DELETIONS: Ascorbic acid Benzonatate Calcium Cholecalciferol Erythromycin Guaifenesin Naloxone Omeprazole Paxlovid Prednisone Zinc CHANGES: Duloxetine increased to 90 mg daily Metoprolol XL increased to 50mg daily Percocet 5/325 + Percocet 10/325 QID Additional Notes Additional Notes: Pt does not know medications. Pt's Fred was called but no response. [facility] has no record of fills for her. [facility] had a current list of medications that was used to compile the med rec. Recommended Changes Recommended Changes(reason for recommendation): Updated contact info for family/contacts and a possible area loss prevention manager. Attestation: The home medication list is now updated to the best of my knowledge and is ready to be reconciled by the provider. Please contact the TelePharmacy Medication Reconciliation Pharmacist at for any questions.
[2024-09-21] MEDS: DOXYCYCLINE 100 MG in Normal Saline 100 ML IVPB ×2 (10:07→22:28)
--- NOTE | 2024-09-21 10:49 | W.PM.PROGNOT ---
Date of Service Date of service: 09/21/24 Time of Service: 10:49 Assessment and Plan Assessment and plan (1) Community acquired pneumonia: Status: Acute Assessment and plan: Ongoing ceftriaxone and IV doxycycline Continue Acapella, Mucinex, benzonatate Continue scheduled and as needed nebulizer treatment Continue oxygen and wean as tolerated to maintain sat 88-92% (2) Acute hypoxic respiratory failure: Status: Acute Assessment and plan: As above (3) COPD exacerbation: Status: Acute Assessment and plan: Continue oral prednisone and as per point 1 (4) Nicotine dependence: Status: Acute Assessment and plan: Stopped smoking 1-2 weeks ago Continue NRT -patient not feel anxious in the absence of nicotine Discussed with Dr. Perry Subjective Subjective Patient reports: no new complaints, feels better, tolerating liquids well, tolerating a regular diet, voiding w/o difficulty, bowel movement and shortness of breath; denies diarrhea, blood in stool, nausea, vomiting or fever Exam Narrative Exam Narrative: Alert and x 3, nonfocal, diminished scattered ronchi , S1-S2, regular,, abdomen is nondistended, soft nontender , no CVA tenderness, moves all 4 extremities Objective Last Vital Signs Temp 36.8 C 09/21/24 08:31 Pulse 91 H 09/21/24 08:35 Resp 18 09/21/24 08:31 BP 147/106 H 09/21/24 08:31 Pulse Ox 92 09/21/24 09:19 Laboratory Results - last 24 hr 09/20/24 09/20/24 09/20/24 11:40 13:12 13:51 WBC 11.94 H RBC 4.27 Hgb 13.0 Hct 39.6 MCV 93 MCH 30.4 MCHC 32.8 RDW 13.5 Plt Count 365 MPV 9.0 Immature Gran % 0.4 Neutrophils % 86.3 Lymphocytes % 8.1 Monocytes % 4.3 Eosinophils % 0.1 Basophils % 0.8 Nucleated RBC % 0.0 Absolute Neutrophils 10.30 H Absolute Lymphocytes 0.97 L Absolute Monocytes 0.51 Absolute Eosinophils 0.01 Absolute Basophils 0.10 PT 10.4 INR 1.0 APTT 33.9 H D-Dimer 8 H Sodium 137 Potassium 4.6 Chloride 95 L Carbon Dioxide 34.2 H Anion Gap 7.8 BUN 10 Creatinine 0.8 Est GFR (CKD-EPI 2020) 79.71 Glucose 116 H Calcium 10.1 Magnesium Total Bilirubin 0.62 AST 50 H ALT 48 Alkaline Phosphatase 150 H Troponin I 31 28 NT-Pro-B Natriuret Pep 3506 H Total Protein 7.5 Albumin 2.9 L COVID-19 Source Nasopharynx SARS-CoV-2 (PCR) Negative Influenza Type A (PCR) Negative Influenza Type B (PCR) Negative RSV (PCR) Negative 09/20/24 09/21/24 16:50 05:53 WBC 7.55 RBC 3.99 Hgb 12.3 Hct 36.7 MCV 92 MCH 30.8 MCHC 33.5 RDW 13.3 Plt Count 352 MPV 9.1 Immature Gran % 0.4 Neutrophils % 88.2 Lymphocytes % 8.9 Monocytes % 2.0 Eosinophils % 0.0 Basophils % 0.5 Nucleated RBC % 0.0 Absolute Neutrophils 6.66 Absolute Lymphocytes 0.67 L Absolute Monocytes 0.15 Absolute Eosinophils 0.00 Absolute Basophils 0.04 PT INR APTT D-Dimer Sodium 136 Potassium 3.9 Chloride 97 L Carbon Dioxide 32.5 H Anion Gap 6.5 BUN 9 Creatinine 0.6 Est GFR (CKD-EPI 2020) 97.10 Glucose 112 H Calcium 9.7 Magnesium 2.0 Total Bilirubin AST ALT Alkaline Phosphatase Troponin I 27 NT-Pro-B Natriuret Pep Total Protein Albumin COVID-19 Source SARS-CoV-2 (PCR) Influenza Type A (PCR) Influenza Type B (PCR) RSV (PCR) Time Spent with Patient Time Spent with Patient: >50 minutes Time was spent: preparing to see the patient(eg.review tests), obtaining and/or reviewing separately otained hiistory, ordering medications,tests, procedures, referring, communicating with other health insurance healthcare representative, indepentently interpreting results, counseling the patient and care coordination
[2024-09-21] MEDS: cefTRIAXone 1 GM/50 ML BAG IVPB (11:51)
--- NOTE | 2024-09-21 15:05 | CHAPLAIN ---
Patrick remembered me from previous admissions. She said she came into the ED yesterday and eventually made it to the Med/Surg floor late yesterday. She told her to go home and rest. Patrick was matter of fact about her situation. He's going to take me soon. I understand that. I'm okay with that, she said. She also commented that she is the youngest of her siblings and she believes that her , when it happens, and if she dies before them, may get them to make some changes in their lives.
[2024-09-21] MEDS: Enoxaparin 30 MG/0.3 ML SYR SC (20:57)
[2024-09-22] VITALS (7 sets, daily range): BP systolic 159–167; BP diastolic 100–105; PULSE 75–127; RESP 2–22; TEMP 37–37.3; O2SAT 91–96
[2024-09-22] MEDS: Acetaminophen 325 MG TAB PO ×2 (00:58→06:51)
[2024-09-22] MEDS: oxyCODONE 10 MG TAB PO ×3 (00:58→13:25)
[2024-09-22] MEDS: Albuterol/Ipratropium 3 ML UPD VIAL UPD ×2 (02:12→08:56)
[2024-09-22 07:09] LABS: Abs Immature Grans 0.06 10^3/uL (0.0-0.06); Absolute Basophil Count 0.02 10^3/uL (0.0-0.2); Absolute Lymphocyte Count 1.63 10^3/uL (1.2-3.4); Absolute Monocyte Count 0.46 10^3/uL (0.1-0.8); Absolute Neutrophil Count 8.16 10^3/uL (1.2-6.7); Basophils % 0.2 %; HCT 36.1 % (36.0-46.0); HGB 12.5 g/dL (11.2-15.7); Immature Grans % 0.6 %; Lymphocytes % 15.8 %; MCH 31.2 pg (27.0-33.0); MCHC 34.6 % (32.0-36.0); MCV 90 fL (80-95); MPV 8.8 fL (8.0-11.0); Monocytes % 4.5 %; Neutrophils % 78.9 %; Platelet Count 391 10^3/uL (130-400); RBC 4.01 10^6/uL (3.93-5.22); RDW 13.4 % (11.7-14.6); RDW-SD 44.2 fL; WBC 10.33 10^3/uL (4.4-10.8)
[2024-09-22 07:27] LABS: Anion Gap 6.4 mmol/L (3-11); BUN 9 mg/dL (7-18); CO2 32.6 mmol/L (21.0-32.0); CREATININE 0.7 mg/dL (0.55-1.02); Calcium 9.5 mg/dL (8.5-10.1); Chloride 97 mmol/L (98-107); Estimated GFR 93.56 (mL/min/1.73m2); Glucose 100 mg/dL (74-106); Potassium 3.4 mmol/L (3.5-5.1); Sodium 136 mmol/L (136-145)
[2024-09-22] MEDS: guaiFENesin 600 MG TABCR PO ×2 (09:21→14:49)
[2024-09-22] MEDS: Simvastatin 40 MG TAB PO (09:22)
[2024-09-22] MEDS: Ascorbic Acid 500 MG TAB 1000 MG PO (09:22)
[2024-09-22] MEDS: predniSONE 20 MG TAB 60 MG PO (09:22)
[2024-09-22] MEDS: Cholecalciferol (Vitamin D3) 1,000 UNIT TAB 2000 UNITS PO (09:22)
[2024-09-22] MEDS: Metoprolol CR 25 MG TABCR 12.5 MG PO (09:23)
[2024-09-22] MEDS: DOXYCYCLINE 100 MG in Normal Saline 100 ML IVPB (09:26)
--- NOTE | 2024-09-22 10:11 | DSE_ITS ---
Date of service: 09/22/24 Time of Service: 10:11 DS: Diagnosis Discharge Diagnosis (1) Community acquired pneumonia: Status: Acute (2) Acute hypoxic respiratory failure: Status: Acute (3) COPD exacerbation: Status: Acute (4) Nicotine dependence: Status: Acute Discharge Plan Disposition Patient Disposition: Home Condition: Improving Discharge Details Reason For Visit: CAP, COPD Exacerbation Admit Date/Time: 09/20/24 16:29 Admit Provider: Don Perry Attending Provider: Don Perry Primary Care Provider: Mildred Santana Hospital Course Hospital Course: This 69 years old female with past medical history of non-Hodgkin lymphoma,Asthma, non oxygen dependent COPD, tobacco abuse claiming quitting about 2 weeks ago presented to the ED at [facility] on for evaluation of gradually worsening chest tightness, shortness of breath, productive cough with yellow/green sputum for the past month. On arrival to the ED the patient was hypoxic in the 70s and is not oxygen dependent at home. Workup in the ED was significant for WBC at 11.9, ANC at 10.3, D-dimer at 8, AST at 50 and alk phos at 150. Upper respiratory viral panel was negative. Imaging was negative for pulmonary emboli, thoracic aortic dissection or aneurysm, positive findings of scattered opacities as well as moderately severe centrilobular emphysematous and progressive pulmonary fibrosis. The hospitalist was consulted and patient admitted to the medical surgical floor for evaluation and management of currently acquired pneumonia. In the ED patient was treated with IV methylprednisolone, ceftriaxone and IV doxycycline. During the stay, the patient continue to receive prednisone, ceftriaxone, and doxycycline and she no longer required oxygen supplementation s/p completion of exercise oxymetry with RT. Blood cultures are negative. The patient no longer reports fevers, chills, sweats, dizziness and has decreased productive cough of green sputum. The patient will be discharged home on a taper of prednisone, mucinex, cefpodoxime and doxycycline as well as nebulizer treatments. The patient will need to follow up with PCP within 7 days of discharge. Discussed with Dr. Perry Home Meds and New Rx's Prescriptions: New guaifenesin [Mucus Relief ER] 600 mg Tablet Extended Release 12hr 1,200 mg PO BID Qty: 20 0RF prednisone 20 mg Tablet See Rx Instructions .ROUTE .COMPLEX Qty: 28 0RF Rx Instructions: Take 60 mg for 3 days Then take 40 mg for 5 days Then take 20 mg for 5 days Then take 10 mg for 5 days then stop cefpodoxime 200 mg tablet 200 mg PO BID Qty: 10 0RF Rx Instructions: must administer with a meal/food doxycycline hyclate 100 mg capsule 100 mg PO BID Qty: 10 0RF ipratropium-albuterol 0.5 mg-3 mg(2.5 mg base)/3 mL Solution For Nebulization 3 ml UPD Q6H Qty: 90 0RF nicotine 14 mg/24 hr patch 24 hour 1 patch transdermal DAILY Qty: 28 0RF Continued simvastatin 40 MG tablet 40 mg PO QPM Patient Comments: per [facility] pharmacy oxycodone-acetaminophen 10-325 mg Tablet 1 tab PO QID Patient Comments: In addition to Percocet 5/325 -Confirmed per [facility] pharmacy Rx Instructions: takes with a 5mg oxycodone for a total of 15mg duloxetine [Cymbalta] 60 mg Capsule,Delayed Release(Dr/Ec) 60 mg PO DAILY Patient Comments: in addition to 30mg daily = 90mg TDD per [facility] naloxone [Narcan] 4 mg/actuation [place],Non-Aerosol 4 mg INTRANASAL Q2-3M PRN albuterol sulfate [Ventolin HFA] 90 mcg/actuation Hfa Aerosol Inhaler 2 puff inhalation Q4H PRN PRN (Reason: shortness of breath or wheezing) Qty: 6.7 0RF duloxetine [Cymbalta] 30 mg capsule,delayed release(DR/EC) 30 mg PO DAILY Patient Comments: In addition to 60mg daily = 90m TDD per [facility] metoprolol succinate [Toprol XL] 50 mg tablet extended release 24 hr 50 mg PO DAILY Patient Comments: Per [facility] oxycodone-acetaminophen 5-325 mg tablet 1 tab PO QID Patient Comments: In addition to Percocet 10/325- Confirmed per [facility] pharmacy folic acid 800 mcg tablet 800 mcg PO DAILY Patient Comments: Per [facility] pharmacy trazodone 100 mg tablet 100 mg PO HS MAY REPEAT X1 Rx Instructions: 100mg at bedtime plus additional 100mg HS PRN potassium chloride 20 mEq tablet extended release 20 meq PO DAILY Patient Comments: Per [facility] pharmacy magnesium oxide 400 mg magnesium tablet 400 mg PO DAILY Patient Comments: Per [facility] fluticasone propionate [24 Hour Allergy Relief] 50 mcg/actuation spray,suspension 2 spray intranasal DAILY Rx Instructions: administer into each nostril ipratropium-albuterol 0.5 mg-3 mg(2.5 mg base)/3 mL solution for nebulization 3 ml inhalation QID PRN Patient Comments: Per [facility] montelukast 10 mg tablet 10 mg PO DAILY Patient Comments: Per [facility] polyethylene glycol 3350 [Miralax] 17 gram powder in packet 17 g PO DAILY PRN PRN (Reason: constipation) Discharge Instructions Instructions: Chronic Obstructive Pulmonary Disease (COPD) (DC) Stand Alone Forms: Nursing Discharge Form Referrals: Mildred Santana [Primary Care Provider] - (Follow-up with PCP within 7 days of discharge) Activity:: Activity as Tolerated Equipment/Supplies:: No Equipment Needed Diet:: As Tolerated Discharge Orders Discharge Orders: Discharge Order (Routine); Ordered 09/22/24 Ordered By: Yanira Matt DS: Summary Time Spent with Patient providing and/or coordinating discharge services: Greater than 30 minutes Status at Discharge Functional status at discharge: independent ambulation Overall status at discharge: patient is progressing back to baseline Mental Status: mental status grossly normal Speech and Movement: speech and movement normal Mood: congruent mood Affect: normal affect Quality:SDOH Health Related Social Needs: Health related social needs problems with daily activi ties (Z73.9) Exam Narrative Exam Narrative: Alert and x 3, nonfocal, diminished bases, scattered ronchi clearing with cough , S1-S2, regular,, abdomen is nondistended, soft nontender , no CVA tenderness, moves all 4 extremities Psych Mental Status: mental status grossly normal Speech and Movement: speech and movement normal Mood: congruent mood Affect: normal affect DS: Data Vitals/I&O Vitals and I&O: Vital Signs Temperature 37.0 C 09/22/24 07:55 Temperature Source Temporal Artery Scan 09/22/24 07:55 Pulse 79 09/22/24 08:56 Pulse Rhythm Regular 09/20/24 18:07 Pulse 82 09/20/24 17:31 Respiratory Rate 18 09/22/24 08:56 Respiratory Effort Short of Breath 09/20/24 18:07 Respiratory Depth Normal 09/20/24 18:07 Respiratory Pattern Tachypnea 09/20/24 18:07 Blood Pressure 167/105 H 09/22/24 07:55 Blood Pressure Mean 77 09/20/24 17:31 Blood Pressure Position Sitting 09/20/24 11:39 Pulse Oximetry 92 09/22/24 08:56 Oxygen Delivery Method Room Air 09/22/24 08:56 Oxygen Flow Rate 0 09/22/24 08:56 Pain Level 0 09/22/24 07:55 Comment RN notified of bp 09/21/24 15:42 Intake & Output 09/21/24 09/21/24 09/22/24 11:59 23:59 11:59 Intake Total 220 / 270 50 / 270 100 / 100 Output Total 100 / 100 Balance 220 / 270 50 / 270 0 / 0 Intake: IV 220 / 270 50 / 270 100 / 100 Output: Urine 100 / 100 Other: Urine Color Yellow Yellow Yellow Straw Urine Appearance Clear Clear Clear Urine Odor Normal Normal Data Completed and Pending Labs on day of discharge: Labs from last 24 hours 09/22/24 06:14 WBC 10.33 RBC 4.01 Hgb 12.5 Hct 36.1 MCV 90 MCH 31.2 MCHC 34.6 RDW 13.4 Plt Count 391 MPV 8.8 Immature Gran % 0.6 Neutrophils % 78.9 Lymphocytes % 15.8 Monocytes % 4.5 Eosinophils % 0.0 Basophils % 0.2 Nucleated RBC % 0.0 Absolute Neutrophils 8.16 H Absolute Lymphocytes 1.63 Absolute Monocytes 0.46 Absolute Eosinophils 0.00 Absolute Basophils 0.02 Sodium 136 Potassium 3.4 L Chloride 97 L Carbon Dioxide 32.6 H Anion Gap 6.4 BUN 9 Creatinine 0.7 Est GFR (CKD-EPI 2020) 93.56 Glucose 100 Calcium 9.5 09/21/24 11:58 Blood Blood Culture - Pending 09/21/24 11:50 Blood Blood Culture - Pending Preliminary micro results at discharge 09/21/24 11:58 Blood Culture - Pending Blood 09/21/24 11:50 Blood Culture - Pending Blood PFSH All Active Problems (Updated 09/21/24 @ 10:50 by Yanira Matt APRN) Nicotine dependence (Acute) Acute hypoxic respiratory failure (Acute) COPD exacerbation (Acute) Hypoxemia (Acute) Acute respiratory distress (Acute) Community acquired pneumonia (Acute) Lymphoma in remission (Acute) Elevated troponin (Acute) Sinus tachycardia (Acute) Chronic anemia (Acute) Hypomagnesemia (Acute) Pneumonia due to COVID-19 virus (Acute) Lymphoma (Acute) Medical History Asthma Bone metastasis Cigarette nicotine dependence Fibromyalgia Hemangioma of liver Hyperlipidemia Hypothyroidism pt states a medication did this to her, she DOES NOT have it.HE Major depression Stage Karley non Hodgkin's lymphoma Viral hepatitis B acute Vitamin D deficiency Surgical History Biopsy, Lymph Node excision ganglion cyst Hx of colonoscopy Hx of eye surgery Left Social History Smoking/Tobacco Use Status: Former Tobacco Use Quit Date: 08/08/24 Smoking risk assessment performed?: Yes Alcohol Intake: never Drug use: Never Substance use type: does not use Housing: house Do you feel safe at home: Yes Do you feel safe in your relationship?: Yes Additional Social history: at bedside Time Spent with Patient Time Spent with Patient: 70-84 minutes4 Time was spent: preparing to see the patient(eg.review tests), obtaining and/or reviewing separately otained hiistory, ordering medications,tests, procedures, referring, communicating with other health direct care supervisor, indepentently interpreting results, counseling the patient and care coordination
[2024-09-22] MEDS: Normal Saline Flush 10 ML SYR IVP (10:19)
[2024-09-22] MEDS: DULoxetine 30 MG CAP 60 MG PO (10:19)
--- NOTE | 2024-09-22 11:36 | CMDISCH_ITS ---
Date of service: 09/22/24 Time of Service: 11:36 LACE Index Scoring Tool Questions: Length of Stay (in days): 2 Was the patient admitted via the E.D.?: Yes Comorbidities: Chronic Pulmonary Disease and Metastatic Solid Tumor E.D. Visits: 1 Answers: Total Score: 11 Risk of Readmission: High Risk Care Management Discharge Plan Reason for Hospitalization: Pneumonia, COPD exacerbation Discharge Plan: Yanira is discharged today with no new services. She will have prescriptions for oral antibiotics. Yanira will f/u with her PCP and continue per her plan of care. Yanira will transport home in a private vehicle. Patient/Family Education Needs: Review of discharge instructions, activity, limitations and discuss ask me 3. SDOH Health Related Social Needs: Health related social needs problems with daily activi ties (Z73.9)
[2024-09-22] MEDS: cefTRIAXone 1 GM/50 ML BAG IVPB (13:13)
== END 2024-09-22 14:55 | disposition home or self-care (01) | DRG 193 ==
LOC: ER 17:32 → MS 18:04
PROVIDERS: Admitting Provider Hospitalist; Emergency Provider Student in an Organized Health Care Education/Training Program; PCP Nurse Practitioner Family; Responsible Provider Nurse Practitioner Acute Care; Visit Provider Hospitalist
DX: J18.9 Pneumonia, unspecified organism (principal); J96.01 Acute respiratory failure with hypoxia; J44.0 Chronic obstructive pulmonary disease with (acute) lower respiratory infection; C79.51 Secondary malignant neoplasm of bone; C85.9A Non-Hodgkin lymphoma, unspecified, in remission; J44.1 Chronic obstructive pulmonary disease with (acute) exacerbation; F17.210 Nicotine dependence, cigarettes, uncomplicated; Z79.899 Other long term (current) drug therapy; R79.1 Abnormal coagulation profile; D64.9 Anemia, unspecified; M79.7 Fibromyalgia; F32.9 Major depressive disorder, single episode, unspecified; E78.5 Hyperlipidemia, unspecified; E83.42 Hypomagnesemia; R74.8 Abnormal levels of other serum enzymes; E03.9 Hypothyroidism, unspecified; J84.10 Pulmonary fibrosis, unspecified
CPT/HCPCS: 00123; 36415; 71275; 80048; 80053; 87040; 87637; 93005; 94618; 94640; 94761; 96365; 96368; 96375; 99285; 71045; 83735; 83880; 84484; 85025; 85379; 85610; 85730; 93010; 94760; 99223; 99233; 99239; J0696; J1650; J2919; J3490; J7512; J7620

== ENCOUNTER 2024-10-15 02:08 | Outpatient (CLI) | payer MEDICARE, SELFPAY ==
--- NOTE | 2024-10-15 | DI.US_ITS ---
Exam(s) US LOWER EXTREMITY VENOUS LT EXAM: US LOWER EXTREMITY VENOUS LT CLINICAL HISTORY: LOCALIZED SWELLING LT LOWER LEG,R22.42,? DVT,H/O LYMPHOMA TECHNIQUE: Grayscale, color, and doppler imaging of the deep venous system of the left lower extremi ty was performed. COMPARISON: US US ECHOCARDIOGRAM from 06/16/2021 FINDINGS: There is no evidence of intraluminal thrombus and there is normal compression and augmentation demons trated within the common femoral vein, femoral vein, and popliteal vein. In the ipsilateral calf the interrogated veins also exhibit normal compression/ augmentation properti es. The ipsilateral saphenofemoral junction is patent. IMPRESSION: 1. No evidence of DVT in the left lower extremity. DATA REPOSITORY:
== END 2024-10-15 02:28 ==
LOC: DI 02:08
PROVIDERS: PCP Nurse Practitioner Family; Visit Provider Student in an Organized Health Care Education/Training Program
DX: R22.42 Localized swelling, mass and lump, left lower limb (principal)
CPT/HCPCS: 93971

== ENCOUNTER 2024-10-17 02:20 | Outpatient (CLI) | payer MEDICARE, SELFPAY ==
[2024-10-17 13:23] LABS: Absolute Basophil Count 0.03 10^3/uL (0.0-0.2); Absolute Eosinophil Count 0.14 10^3/uL (0.0-0.7); Absolute Lymphocyte Count 1.05 10^3/uL (1.2-3.4); Absolute Monocyte Count 0.29 10^3/uL (0.1-0.8); Absolute Neutrophil Count 2.06 10^3/uL (1.2-6.7); Basophils % 0.8 %; Eosinophils % 3.9 %; HCT 36.3 % (36.0-46.0); HGB 11.3 g/dL (11.2-15.7); Lymphocytes % 29.4 %; MCH 30.9 pg (27.0-33.0); MCHC 31.1 % (32.0-36.0); MCV 99 fL (80-95); MPV 9.2 fL (8.0-11.0); Monocytes % 8.1 %; Neutrophils % 57.8 %; Platelet Count 234 10^3/uL (130-400); RBC 3.66 10^6/uL (3.93-5.22); RDW 15.6 % (11.7-14.6); RDW-SD 57.1 fL; WBC 3.57 10^3/uL (4.4-10.8)
[2024-10-17 13:44] LABS: ALT 22 U/L (14-59); AST 15 U/L (15-37); Albumin 3.2 g/dL (3.4-5.0); Alkaline Phosphatase 80 U/L (46-116); BUN 7 mg/dL (7-18); Bilirubin, Total 0.4 mg/dL (0.2-1.0); CREATININE 0.8 mg/dL (0.55-1.02); Calcium 8.9 mg/dL (8.5-10.1); Chloride 106 mmol/L (98-107); Estimated GFR 79.71 (mL/min/1.73m2); Glucose 85 mg/dL (74-106); LDH 227 U/L (81-234); Potassium 3.9 mmol/L (3.5-5.1); Sodium 143 mmol/L (136-145); Total Protein 6.1 g/dL (6.4-8.2)
== END 2024-10-17 02:21 | disposition home or self-care (01) ==
PROVIDERS: PCP Nurse Practitioner Family; Visit Provider Nurse Practitioner Adult Health
DX: Z86.19 Personal history of other infectious and parasitic diseases (principal); C82.00 Follicular lymphoma grade I, unspecified site
CPT/HCPCS: 36415; 80053; 83615; 85025

== ENCOUNTER 2024-11-05 01:02 | Outpatient (CLI) | payer MEDICARE, SELFPAY ==
--- NOTE | 2024-11-05 | DI.CT_ITS ---
Exam(s) CT ABDOMEN PELVIS W EXAM: CT ABDOMEN PELVIS W CLINICAL HISTORY: C82.08,M79.605,M79.89 LLExt Swelling,HX Follicular Lymphoma,r/o Pelvic Mass. TECHNIQUE: Imaging Protocol: Axial computed tomography images with coronal and sagittal reformatted images were created and reviewed CONTRAST MATERIAL: Intravenous: Omnipaque 350 Contrast volume:75 ml Oral: yes COMPARISON: CT CT NECK CHEST ABD PEL W from 12/01/2022 FINDINGS: ABDOMEN and PELVIS: Lung Bases: No acute findings. Emphysematous changes. Liver: Normal density. Stable liver lesions, cysts and hemangiomas. Gallbladder and biliary tract: No radiodense calculus. No wall thickening or pericholecystic fluid. No biliary dilation. Pancreas: Normal density. No abnormal calcifications or inflammatory process. No evidence of mass. Spleen: Normal. Kidneys: Normal size, contour and axis. No radiodense stones. No obstructive uropathy. No suspicious masses seen. Adrenal glands: No masses seen. Vasculature: Abdominal aorta non-dilated. Atherosclerotic changes. Soft tissues: Unremarkable. Bladder: Distended. No gross wall thickening. No calculi.No focal mass. Bowel: No obstruction. No bowel wall thickening. Appendix not visualized.. Increased quantity of s tool consistent with constipation. Peritoneal cavity: No ascites. No focal collection. No mesenteric inflammatory response. No free air . Bones: Stable mild central compression of the superior endplate of L4. Reproductive organs: Retroverted uterus with small fibroids. Lymph nodes: No pathologically enlarged lymph nodes. IMPRESSION:: No acute abnormality in the abdomen or pelvis. RADIATION DOSE DELIVERED: Total DLP DATA REPOSITORY: All CT scans at this facility are submitted to the National Radiology Data Registry (NRDR) Dose Index Registry (DIR) with the [employer] (A[employer]). RADIATION OPTIMIZATION: All CT scans at this facility use at least one of these dose optimization te chniques: automated exposure control; mA and/or kV adjustment per patient size (includes targeted exa ms where dose is matched to clinical indication); or iterative reconstruction.
[2024-11-05] MEDS: Barium Sulfate 2% W/V-Berry Smoothie 450 ML BTL PO ×2 (13:17→13:18)
[2024-11-05] MEDS: Omnipaque 350 MG/ML 100 ML BTL 75 ML IJ (15:24)
[2024-11-05] MEDS: Normal Saline - Diluent 50 ML VIAL IJ (15:25)
== END 2024-11-05 01:22 ==
PROVIDERS: PCP Nurse Practitioner Family; Visit Provider Internal Medicine Hematology & Oncology
DX: C82.08 Follicular lymphoma grade I, lymph nodes of multiple sites (principal); M79.605 Pain in left leg; M79.89 Other specified soft tissue disorders
CPT/HCPCS: 74177; J3490

== ENCOUNTER → 2025-01-31 09:48 | Outpatient (BNVA) | payer MEDICARE, SELFPAY | PROVIDERS: PCP Nurse Practitioner Family; Referring Provider Nurse Practitioner Family; Visit Provider Physician Assistant Surgical | DX: J45.909 Unspecified asthma, uncomplicated (principal); J44.9 Chronic obstructive pulmonary disease, unspecified; F17.210 Nicotine dependence, cigarettes, uncomplicated; C82.18 Follicular lymphoma grade II, lymph nodes of multiple sites | CPT/HCPCS: 99215; 94640; G2212; J7620 ==

== ENCOUNTER 2025-04-24 04:04 | Outpatient (CLI) | payer MEDICARE, SELFPAY ==
[2025-04-24 12:42] LABS: Abs Immature Grans 0.00 10^3/uL (0.0-0.06); HCT 37.7 % (36.0-46.0); HGB 12.4 g/dL (11.2-15.7); Immature Grans % 0.0 %; MCH 31.2 pg (27.0-33.0); MCHC 32.9 % (32.0-36.0); MCV 95 fL (80-95); MPV 9.7 fL (8.0-11.0); Platelet Count 203 10^3/uL (130-400); RBC 3.97 10^6/uL (3.93-5.22); RDW 13.7 % (11.7-14.6); RDW-SD 48.2 fL; WBC 3.74 10^3/uL (4.4-10.8)
[2025-04-24 12:50] LABS: ALT 28 U/L (14-59); AST 18 U/L (15-37); Albumin 4.0 g/dL (3.4-5.0); Alkaline Phosphatase 89 U/L (46-116); Anion Gap 7.5 mmol/L (3-11); BUN 13 mg/dL (7-18); Bilirubin, Total 0.5 mg/dL (0.2-1.0); CO2 30.5 mmol/L (21.0-32.0); Calcium 8.7 mg/dL (8.5-10.1); Chloride 103 mmol/L (98-107); Estimated GFR 93.56 (mL/min/1.73m2); Glucose 118 mg/dL (74-106); LDH 222 U/L (81-234); Potassium 3.3 mmol/L (3.5-5.1); Sodium 141 mmol/L (136-145); Total Protein 6.6 g/dL (6.4-8.2)
== END 2025-04-24 04:05 | disposition home or self-care (01) ==
PROVIDERS: PCP Nurse Practitioner Family; Visit Provider Internal Medicine Hematology & Oncology
DX: Z86.19 Personal history of other infectious and parasitic diseases (principal)
CPT/HCPCS: 36415; 80053; 83615; 85025

== ENCOUNTER 2025-06-04 14:21 | Outpatient (REF) | payer MEDICARE, SELFPAY ==
[2025-06-04 17:30] LABS: Microalb ug/mg Crea 8.8 ug/mg Cr
== END 2025-06-04 14:22 | disposition home or self-care (01) ==
LOC: NCHCN 14:21
PROVIDERS: PCP Nurse Practitioner Family; Visit Provider Student in an Organized Health Care Education/Training Program
DX: I10 Essential (primary) hypertension (principal)
CPT/HCPCS: 82043; 82570